=== PATIENT | male | born 1945 | race Caucasian/White ===

== ENCOUNTER 2020-05-05 14:23 | Inpatient (IN) ==
--- NOTE | 2020-05-05 14:55 | Emergency Department Note ---
Impression & Plan Weakness, Fall, Acute urinary retention ED Provider Note NAME: Jean Marie CHENG AGE: 74 SEX: M : 1945 ARRIVES VIA: Walk-In INFORMANT: [Patient][daughter] ED PROVIDER(S): [Augustin Lee MD] CHIEF COMPLAINT: Fall HISTORY OF PRESENT ILLNESS: The patient is a 74-year-old male with dementia. He also has some PTSD. The patient is cared for by his daughter who is at the bedside. The patient has fallen 3 times in the last 24 hours, this is unusual. She took him to the [facility] yesterday, a brain CT scan, urine sample and blood work was done, nothing was found to explain the falls. X-rays of the patient's pelvis were performed and negative. The patient has fallen again since being seen at the urgent care. The daughter brings the patient here for a work-up. The patient has no complaints at the present. As per the daughter, he is eating and drinking well. There have been no recent medication changes. No fever, cough, congestion. There has been no one-sided weakness. He is urinating without difficulty. She states that he is always shaky and always drags his feet when he walks, this is his norm though. What is abnormal is the fact that he is falling. REVIEW OF SYSTEMS: See HPI for pertinent positives and negatives. A total of ten systems were reviewed and were otherwise negative. PMHx/PSHx: See Below SOCIAL HISTORY: See Below. PHYSICAL EXAM: GENERAL: Patient is in no acute distress. HEENT: No acute trauma, normocephalic atraumatic, mucous membranes moist, no nasal congestion, no scleral icterus. NECK: No stridor, no adenopathy, no meningismus, trachea is midline. LUNGS: Clear to auscultation bilaterally, no wheeze, no rhonchi, breath sounds equal. HEART: Without murmurs gallops or rubs, regular rate and rhythm. ABDOMEN: Soft, nontender, bowel sounds positive, no hernias, no peritonitis. EXTREMITIES: No cyanosis or edema, full range of motion of all the joints without pain or difficulty, no signs for acute trauma. NEUROLOGIC: Awake and alert, no acute motor or sensory deficits, no focal weakness. No extremity drift, no cerebellar dysfunction, no facial droop. Some extremity tremor is noted. SKIN: No rash, no jaundice, no diaphoresis. Buttock: There is no skin breakdown, no contusion from his falls. DIFFERENTIAL DIAGNOSIS: Infection, dehydration, metabolic abnormality, hypo/hyperglycemia, medication reaction, electrolyte disturbance, anemia, hypoxia, cardiac sources, intracere bral event, toxicologic, neurologic, as well as other pathologies. EMERGENCY DEPARTMENT COURSE/PROCEDURES: ECG: Indication was weakness. The ECG shows a poor baseline however, the rhythm appears to be sinus with a shorter PA and a PAC. The rate is 77. There is no ST elevation, no PVCs. The QTc is 454. Continuous Cardiac Monitoring: An order was placed for continuous cardiac monitoring. The monitor shows a rate of 107 with sinus tachycardia. Bladder scan showed over 700 cc of urine, significant retention. MEDICAL DECISION MAKING: There is no leukocytosis or concerning anemia. There is a normal platelet co unt. No significant electrolyte abnormality or kidney failure. Lactic acid level is not elevated making sepsis less likely. There is no liver enzyme elevation. Patient appears to be in a euthyroid state. ECG shows a sinus rhythm, no acute ischemia. Cardiac enzyme testing x1 is not consistent with acute cardiac injury. Urinalysis does not show evidence for infection. Chest film does not show pneumonia or CHF. I was able to [facility] of the head did not show anyt [place] acute, laboratory testing was unremarkable. Urinalysis at their facility did not show infection. Patient does not have any focal neurologic findings. He has some tremor but this is his baseline. He is not toxic, he is not febrile. I talked to the daughter at length. The patient is falling to the point where she is no longer comfortable caring for him. She feels he is at risk for injury at home. She thinks he may require placement at a long-term care facility. The patient is being hospitalized for his weakness and falls, the cause is unclear but I suspect multifactorial. With regard to the urinary retention, the patient refused a Perez catheter. His daughter believes that he will not tolerate the Perez. Past Med/Surg History Medical History COPD (chronic obstructive pulmonary disease) PTSD (post-traumatic stress disorder) Social History Smoking Status: Current every day smoker Cigarettes Per Day: 10; Second Hand Exposure: No; Do You Dip or Chew Tobacco: No; Tobacco Cessation Education Requested by Patient: No Hx Alcohol Use: Yes Alcohol type: beer Hx Substance Use: No Preferred Language: Maltese Communication Ability: Effective Setter Off Required: No Current Living Situation: Family Current Living Situation Comment: lives with daughter and son in law Other Information That Helps Us Care for You: No Feels Safe at Home: Yes Safety Concerns: Feels Safe At This Time Assistive Devices: Hearing Aid - Bilateral Assistive Devices Comment: not with patient Allergies Allergies Allergy/AdvReac Type Severity Reaction Status Date / Time No Known Allergies Allergy Verified 05/05/20 18:32 Home Meds Home Medications Medication Instructions Recorded Confirmed acetaminophen 650 mg PO QID PRN 05/05/20 05/05/20 benztropine 2 mg PO BID 05/05/20 05/05/20 cholecalciferol (vitamin D3) 2,000 unit PO QAM 05/05/20 05/05/20 [Vitamin D3] fluphenazine HCl 10 mg PO BID 05/05/20 05/05/20 multivitamin 1 tab PO QAM 05/05/20 05/05/20 trazodone 200 mg PO HS PRN 05/05/20 05/05/20 venlafaxine 225 mg PO QAM 05/05/20 05/05/20 Results & Data (ED) Vital Signs Vital Signs - 24 hr 05/05/20 14:26 05/05/20 14:52 05/05/20 15:53 Temperature 36.6 C Temperature Source Oral Pulse Rate 76 69 Pulse Rate from SpO2 Sensor 68 Respiratory Rate 18 24 Respiratory Effort / Characteristics Non-Labored Spontaneous Respiratory Depth Normal Respiratory Pattern Regular Blood Pressure 109/62 119/78 Blood Pressure Mean 77 87 Blood Pressure Position Sitting Pulse Oximetry 100 100 100 Oxygen Delivery Method Room Air Room Air Room Air Sepsis Recent Fever Within 48 Hours No Sepsis New/Unexplained Change in Mental Status N/A Sepsis Action Taken by Nursing No Action Required 05/05/20 15:56 05/05/20 16:00 05/05/20 16:30 Temperature Temperature Source Pulse Rate 74 73 68 Pulse Rate from SpO2 Sensor 66 67 64 Respiratory Rate 16 19 19 Respiratory Effort / Characteristics Respiratory Depth Respiratory Pattern Blood Pressure 130/68 131/76 Blood Pressure Mean 96 103 Blood Pressure Position Pulse Oximetry 99 99 93 Oxygen Delivery Method Room Air Room Air Room Air Sepsis Recent Fever Within 48 Hours Sepsis New/Unexplained Change in Mental Status Sepsis Action Taken by Nursing 05/05/20 17:00 05/05/20 17:01 05/05/20 17:30 Temperature Temperature Source Pulse Rate 82 85 72 Pulse Rate from SpO2 Sensor 73 80 73 Respiratory Rate 24 23 17 Respiratory Effort / Characteristics Respiratory Depth Respiratory Pattern Blood Pressure 183/87 H Blood Pressure Mean 116 Blood Pressure Position Pulse Oximetry 94 100 99 Oxygen Delivery Method Room Air Room Air Room Air Sepsis Recent Fever Within 48 Hours Sepsis New/Unexplained Change in Mental Status Sepsis Action Taken by Nursing 05/05/20 17:31 05/05/20 18:00 05/05/20 18:31 Temperature Temperature Source Pulse Rate 76 78 87 Pulse Rate from SpO2 Sensor 74 77 Respiratory Rate 25 H 13 22 Respiratory Effort / Characteristics Respiratory Depth Respiratory Pattern Blood Pressure 124/68 139/77 135/73 Blood Pressure Mean 86 111 109 Blood Pressure Position Pulse Oximetry 98 99 Oxygen Delivery Method Room Air Room Air Sepsis Recent Fever Within 48 Hours Sepsis New/Unexplained Change in Mental Status Sepsis Action Taken by Nursing 05/05/20 19:00 05/05/20 19:30 05/05/20 20:00 Temperature Temperature Source Pulse Rate 70 73 88 Pulse Rate from SpO2 Sensor Respiratory Rate 23 16 13 Respiratory Effort / Characteristics Respiratory Depth Respiratory Pattern Blood Pressure 142/71 H 138/67 138/76 Blood Pressure Mean 94 83 102 Blood Pressure Position Pulse Oximetry Oxygen Delivery Method Room Air Sepsis Recent Fever Within 48 Hours Sepsis New/Unexplained Change in Mental Status Sepsis Action Taken by Retirement Medications Current Medication List: was personally reviewed by me Laboratory Data Attestation: I reviewed the patient's lab results. Result diagrams: 05/05/20 15:15 05/05/20 15:15 Lab Results 05/05/20 05/05/20 05/05/20 Range/Units 15:15 15:15 15:15 WBC (4.8-10.8) K/uL RBC (4.7-6.1) M/uL Hgb (14.0-18.0) g/dL Hct (42-52) % MCV (80-100) fL MCH (25-34) pg MCHC (32-36) g/dL RDW Std Deviation (36.4-46.3) fL RDW Coeff of Yvette (11.5-14.5) % Plt Count (130-400) K/uL MPV (7.4-10.4) fL Immature Gran % (Auto) % Neut % (Auto) % Lymph % (Auto) % [place] % (Auto) % Eos % (Auto) % Baso % (Auto) % Neut # (Auto) (1.4-6.5) K/uL Lymph # (Auto) (1.2-3.4) K/uL [place] # (Auto) (0.11-0.59) K/uL Eos # (Auto) (0-0.5) K/uL Baso # (Auto) (0-0.2) K/uL Immature Gran # (Auto) (0.00-0.02) K/uL Sodium 140 (136-145) mmol/L Potassium 4.3 (3.5-5.1) mmol/L Chloride 107 (98-107) mmol/L Carbon Dioxide 30 (21-32) mmol/L Anion Gap 3.0 (3-11) BUN 16 (7-18) mg/dl Creatinine 1.06 (0.6-1.4) mg/dl Est Cr Clr Drug Dosing Not Reportable Est GFR ( Amer) 79.2 Est GFR (Non-Af Amer) 68.3 BUN/Creatinine Ratio 15.1 (10-20) Glucose 100 H (70-99) mg/dl Lactate 1.0 (0.4-2.0) mmol/L Calcium 8.9 (8.5-10.1) mg/dl Magnesium 2.1 (1.8-2.4) mg/dl Total Bilirubin 0.3 (0.2-1) mg/dl AST 18 (15-37) U/L ALT 25 (12-78) U/L Alkaline Phosphatase 83 (45-117) U/L Ammonia 11.9 (11-32) umol/L Total Creatine Kinase 125 (39-308) U/L Troponin I < 0.015 (0-0.045) ng/ml Total Protein 6.9 (6.4-8.2) gm/dl Albumin 3.5 (3.4-5.0) gm/dl Globulin 3.4 (2.5-4.0) gm/dl Albumin/Globulin Ratio 1.0 (0.9-2) TSH 2.610 (0.300-4.500) uIu/ml Urine Color Urine Appearance (Clear) Urine pH (4.5-7.5) Ur Specific [place] (1.000-1.030) Urine Protein (Negative) Urine Glucose (UA) (Negative) Urine Ketones (Negative) Urine Blood (Negative) Urine Nitrite (Negative) Urine Bilirubin (Negative) Urine Urobilinogen (Negative) Ur Leukocyte Esterase (Negative) 05/05/20 05/05/20 Range/Units 15:15 16:59 WBC 6.53 (4.8-10.8) K/uL RBC 4.37 L (4.7-6.1) M/uL Hgb 14.1 (14.0-18.0) g/dL Hct 41.7 L (42-52) % MCV 95.4 (80-100) fL MCH 32.3 (25-34) pg MCHC 33.8 (32-36) g/dL RDW Std Deviation 44.4 (36.4-46.3) fL RDW Coeff of Yvette 12.8 (11.5-14.5) % Plt Count 148 (130-400) K/uL MPV 11.7 H (7.4-10.4) fL Immature Gran % (Auto) 0.2 % Neut % (Auto) 55.3 % Lymph % (Auto) 28.6 % [place] % (Auto) 11.3 % Eos % (Auto) 4.4 % Baso % (Auto) 0.2 % Neut # (Auto) 3.61 (1.4-6.5) K/uL Lymph # (Auto) 1.87 (1.2-3.4) K/uL [place] # (Auto) 0.74 H (0.11-0.59) K/uL Eos # (Auto) 0.29 (0-0.5) K/uL Baso # (Auto) 0.01 (0-0.2) K/uL Immature Gran # (Auto) 0.01 (0.00-0.02) K/uL Sodium (136-145) mmol/L Potassium (3.5-5.1) mmol/L Chloride (98-107) mmol/L Carbon Dioxide (21-32) mmol/L Anion Gap (3-11) BUN (7-18) mg/dl Creatinine (0.6-1.4) mg/dl Est Cr Clr Drug Dosing Est GFR ( Amer) Est GFR (Non-Af Amer) BUN/Creatinine Ratio (10-20) Glucose (70-99) mg/dl Lactate (0.4-2.0) mmol/L Calcium (8.5-10.1) mg/dl Magnesium (1.8-2.4) mg/dl Total Bilirubin (0.2-1) mg/dl AST (15-37) U/L ALT (12-78) U/L Alkaline Phosphatase (45-117) U/L Ammonia (11-32) umol/L Total Creatine Kinase (39-308) U/L Troponin I (0-0.045) ng/ml Total Protein (6.4-8.2) gm/dl Albumin (3.4-5.0) gm/dl Globulin (2.5-4.0) gm/dl Albumin/Globulin Ratio (0.9-2) TSH (0.300-4.500) uIu/ml Urine Color Yellow Urine Appearance Clear (Clear) Urine pH 6.0 (4.5-7.5) Ur Specific [place] 1.013 (1.000-1.030) Urine Protein Negative (Negative) Urine Glucose (UA) Negative (Negative) Urine Ketones Negative (Negative) Urine Blood Negative (Negative) Urine Nitrite Negative (Negative) Urine Bilirubin Negative (Negative) Urine Urobilinogen Negative (Negative) Ur Leukocyte Esterase Negative (Negative) Administered Medications Benztropine Mesylate (Benztropine Mesylate 1 Mg Tab) 2 mg PO BID [facility] Stop: 06/04/20 21:16 Last Admin: 05/05/20 22:03 Dose: 2 mg Documented by: [id number] Fluphenazine HCl (Fluphenazine Hcl 2.5 Mg Tab) 10 mg PO BID [facility] Stop: 06/04/20 21:16 Last Admin: 05/05/20 22:07 Dose: 10 mg Documented by: [id number] Heparin Sodium (Porcine) (Heparin Sod 5,000 Unit/0.5 Ml Vial) 5,000 units SQ Q12 KASANDRA Stop: 06/04/20 21:16 Last Admin: 05/05/20 22:05 Dose: 5,000 units Documented by: [id number] Trazodone HCl (Trazodone Hcl 100 Mg Tab) 200 mg PO HS PRN PRN Reason: Sleep Stop: 06/04/20 21:16 Last Admin: 05/05/20 22:05 Dose: 200 mg Documented by: [id number] Discontinued Medications Sodium Chloride (Nss) 500 mls @ 999 mls/hr IV .Q31M KASANDRA Stop: 05/05/20 15:30 Last Infusion: 05/05/20 15:55 Dose: 0 mls/hr Documented by: [id number] Admin: 05/05/20 15:24 Dose: 999 mls/hr Documented by: [id number] Imaging Data Radiologist's Impression: XR chest 1V portable CLINICAL HISTORY: weakness COMPARISON STUDY: 02/27/2016 FINDINGS: The cardiac and mediastinal contours are normal. There is no evidence of focal pulmonary consolidation. There is no evidence of failure. No pleural effusions are visualized.[ IMPRESSION: No active disease in the chest. Discharge Plan Visit Data Chief Complaint: Fall Stated Complaint: FALLING,BLACKOUTS,TREMORS RIGHT SIDE ED Provider: Augustin Lee Discharge Problem: Weakness, Fall, Acute urinary retention Patient Disposition: Admitted As Inpatient Condition: Good Discharge Instructions Interventions: ED Discharge Assessment Last Done: 05/05/20 21:03 Discharge Problem: Fall Qualifiers: Encounter type: initial encounter Qualified Code(s): W19.XXXA - Unspecified fall, initial encounter
[2020-05-05] MEDS ORDERED: SODIUM CHLORIDE 0.9% 500 ML IV SCH (15:00)
--- NOTE | 2020-05-05 15:03 | XRay Report ---
XR chest 1V portable CLINICAL HISTORY: weakness COMPARISON STUDY: 02/27/2016 FINDINGS: The cardiac and mediastinal contours are normal. There is no evidence of focal pulmonary co nsolidation. There is no evidence of failure. No pleural effusions are visualized.[ IMPRESSION: No active disease in the chest. ACT 112: Negative or not required by law. Electronically signed by: Michael Esposito M.D. 05/05/2020 3:02 PM
[2020-05-05 15:31] LABS: Basophils # (auto) 0.01 K/uL (0-0.2); Basophils % (auto) 0.2 %; Eosinophils # (auto) 0.29 K/uL (0-0.5); Eosinophils % (auto) 4.4 %; Hematocrit (blood only) 41.7 % (42-52); Hemoglobin 14.1 g/dL (14.0-18.0); Immature Granulocytes # (auto) 0.01 K/uL (0.00-0.02); Immature Granulocytes % (auto) 0.2 %; Lymphocytes # (auto) 1.87 K/uL (1.2-3.4); Lymphocytes % (auto) 28.6 %; Mean Corpuscular Hemoglobin 32.3 pg (25-34); Mean Corpuscular Hgb Conc 33.8 g/dL (32-36); Mean Corpuscular Volume 95.4 fL (80-100); Mean Platelet Volume 11.7 fL (7.4-10.4); Monocytes # (auto) 0.74 K/uL (0.11-0.59); Monocytes % (auto) 11.3 %; Neutrophils # (auto) 3.61 K/uL (1.4-6.5); Neutrophils % (auto) 55.3 %; Platelet Count 148 K/uL (130-400); RDW Coefficient of Variation 12.8 % (11.5-14.5); RDW Standard Deviation 44.4 fL (36.4-46.3); Red Blood Count 4.37 M/uL (4.7-6.1); White Blood Count 6.53 K/uL (4.8-10.8)
[2020-05-05 15:51] LABS: Alanine Aminotransferase 25 U/L (12-78); Albumin Level 3.5 gm/dl (3.4-5.0); Aspartate Aminotransferase 18 U/L (15-37); BUN Creatinine Ratio 15.1 (10-20); Blood Urea Nitrogen 16 mg/dl (7-18); Calcium 8.9 mg/dl (8.5-10.1); Carbon Dioxide 30 mmol/L (21-32); Chloride 107 mmol/L (98-107); Est GFR (African American) 79.2; Est GFR (Non-African American) 68.3; Glucose 100 mg/dl (70-99); Magnesium 2.1 mg/dl (1.8-2.4); Potassium 4.3 mmol/L (3.5-5.1); Sodium 140 mmol/L (136-145)
[2020-05-05 16:02] LABS: Alkaline Phosphatase 83 U/L (45-117); Bilirubin,Total 0.3 mg/dl (0.2-1); Creatine Kinase 125 U/L (39-308); Globulin 3.4 gm/dl (2.5-4.0); Total Protein 6.9 gm/dl (6.4-8.2); Troponin I < 0.015 ng/ml (0-0.045)
[2020-05-05 17:26] LABS: Appearance Urine Clear (Clear); Bilirubin Urine Negative (Negative); Blood Urine Negative (Negative); Color Urine Yellow; Glucose Urine UA Negative (Negative); Ketones Urine Negative (Negative); Leukocyte Esterase Urine Negative (Negative); Nitrite Urine Negative (Negative); Protein Urine Negative (Negative); Specific Gravity Urine 1.013 (1.000-1.030); Urobilinogen Urine Negative (Negative)
--- NOTE | 2020-05-05 19:47 | History & Physical Report ---
Date of Service May 05, 2020 Assessment & Plan (1) Falls: Richy Is a 74-year-old male with a past medical history of COPD, tobacco abuse, PTSD, asthma/bronchitis, COPD, duodenal ulcer, and esophagitis with GERD who presents for weakness and falls. Falls, 2/2 progressively worsening cognitive status versus LUTS Patient with good strength, independently ambulatory without cane or walker at baseline. 3 falls in 24 hours Patient with known BPH and elevated PSA, no further work-up [facility] by [facility] due to age Patient was not known to have been retaining previously, was straight cathed for 708 100 cc at [place] in [facility] respectively Be contributing to urinary urgency, straight cath for residual greater than 250 cc Patient with extremely high fluid intake, drink 6020 ounce glasses a day. No electrolyte derangement, this is likely to be increasing his risk of falls Orthostatic vitals pending, 3 falls were following standing No signs of severe deconditioning on admitting exam Defer Flomax at this time due to beers list and risk of sedation/dizziness CT head with no acute findings - Tamsulosin .4mg. Beers list med, but benefits of improved rentention likely out weight risk of falls due to persistent vagal stimulation from urinary retention Dementia Progressively worsening dementia over many years, notably worse in the last month. Has had outpatient cognitive testing which shows decline, chronic CT head shows chronic vascular changes and white matter changes consistent with age and dementia. 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 twice daily Continue benztropine 2 mg p.o. twice daily Patient followed by psychiatry in [place]. Reports of had many medication changes to control schizophrenic symptoms and nighttime agitation, above balance has been working well for several weeks Patient continues to have PTSD and nightmares at night, does better with light in the room near an open door Anxiety/insomnia Continue venlafaxine to 25 mg p.o. every morning Continue trazodone 200 mg p.o. nightly as needed Pain No pain on manual exam. Tylenol 60 mg p.o. 4 times daily as needed DVT prophylaxis: Subcu heparin Diet: Regular CODE STATUS: DNR/DNI. Daughter would want to be contacted to determine whether a trial of intubation would be wanted for declining respiratory status Disposition: Medical/surgical (2) COPD (chronic obstructive pulmonary disease): (3) Tobacco abuse: (4) PTSD (post-traumatic stress disorder): (5) Acute bronchitis: (6) Asthma: (7) Duodenal ulcer: (8) Esophagitis: History of Present Illness Chief Complaint: Falls, weakness Primary Care Provider: NO PCP Richy Is a 74-year-old male with a past medical history of COPD, tobacco abuse, PTSD, asthma/bronchitis, COPD, duodenal ulcer, and esophagitis with GERD who presents for weakness and falls. Per report patient is cared for by his daughter and normally has a slow, shaky gait with dragging feet but does not usually fall. In the last 24 hours he has fallen 3 times. He was seen at [facility] 1 day ago and had a CThead, UA, CBC, BMP which were unremarkable. X-rays of the pelvis did not show any signs of fracture. He was discharged home, but has had an additional fall in the last day and after being seen by urgent care was referred to the emergency department. [place] records review results noted as below. Evaluation about any showed blood pressure of 142/71 with otherwise normal vitals, no leukocytosis, hemoglobin 14.1, no gross electrolyte derangements, glucose of 100, troponin negative, TSH normal, CK normal, ammonia normal, no transaminitis, magnesium normal, and negative urine.Urine retention noted by ED provider with bladder sc an Patient's history is limited by dementia. He is oriented to first name, only. Does not recognize his daughter in the room, is pleasant but unaware of place and date. History is collected mostly from his daughter. She reports that he is normally very energetic, with good strength and walks around frequently. He has had 3 falls in the last 24 hours. He was seen by [facility] as above. She has noticed an associated increase in right-sided shaking/tremors of the arm and slightly in the leg. She also notes he has had chronically worsening dementia over the last month. She has not noticed any fevers, chills, sweats, cough, shortness of breath, difficulty breathing, indication of chest pain, diarrhea, constipation, abdominal pain, or loss of consciousness. He has not had any skin changes or rash. No change in vision or hearing. She reports he will sometimes "blackout ", which she means by this is that he has episodes where he will stare and appeared confused, but does not lose consciousness. These tend to happen when he stands and are associated with loss of balance. He has not had blood pressure problems previously. After being evaluated in [place] and having an additional fall they were seen in the urgent care before being referred to the emergency department. His daughter is a nurse and reports that she understands that this may be a chronic process related to his dementia, and they are working on getting him into a total care facility with a dementia r[place]ussen and [place]. He has had several CTs, including one at the [place] as noted above. He is not able to get MRIs due to a non-MRI compatible artificial eardrum. Reports she has not noticed a change in urinary symptoms, but notes that her father drinks 6 to 820 ounce glasses of water a day. She has not noticed a problem with urinary retention, but he has been straight cathed both at [place] and here for 700 & 800 cc respectively. He was noted to have some BPH in the past with an elevated PSA but due to his age and [facility] status they do not pursue further work-up, and have been monitoring. Not had any painful urination or blood in the urine. Medical history: Reviewed. Of note has a history of schizophrenia for many years, has had medications adjusted by outpatient [place] psychiatrist and have worked to find a balance of fluphenazine and benztropine that control his sympt oms while also minimizing EPS side effects. Therefore he has done very well on his current balance. Medications: Reviewed Allergies: No known drug or food allergies Social history: Living situation with daughter and son-in-law, home has door alarms in a locked acute events. Smokes 10 to 12 cigarettes/day, down from 2 packs/day for "ever ". No alcohol use, no recreational drug use. CODE STATUS: DNR/DNI, daughter would want to be contacted and may be open to trial of intubation for declining respiratory status family history: Patient is adopted, does not know his family history Family history: Patient is adopted, unknown family history ____ [facility] records review Right hip 07/29 view: Mild right hip osteoarthritis no acute findings. 05/04/2020 CThead: Cerebral and cerebellar atrophy. No evidence of bony injury, stroke, or intracranial bleed. Diffuse bilateral white matter changes appreciated. 05/04/2020 CBC: No leukocytosis, hemoglobin 14, platelet 153 UA: [place], no leukocyte esterase or bacteria Troponin negative, lipase negative, ammonia normal Allergies Allergy/AdvReac Type Severity Reaction Status Date / Time No Known Allergies Allergy Verified 05/05/20 18:32 Home Medications Home Medications Medication Instructions Recorded Confirmed Type acetaminophen 650 mg PO QID PRN 05/05/20 05/05/20 History benztropine 2 mg PO BID 05/05/20 05/05/20 History cholecalciferol (vitamin D3) 2,000 unit PO QAM 05/05/20 05/05/20 History [Vitamin D3] fluphenazine HCl 10 mg PO BID 05/05/20 05/05/20 History multivitamin 1 tab PO QAM 05/05/20 05/05/20 History trazodone 200 mg PO HS PRN 05/05/20 05/05/20 History venlafaxine 225 mg PO QAM 05/05/20 05/05/20 History Past Med/Surg History Medical History COPD (chronic obstructive pulmonary disease) PTSD (post-traumatic stress disorder) Social History Smoking Status: Current every day smoker Cigarettes Per Day: 10; Second Hand Exposure: No; Do You Dip or Chew Tobacco: No; Tobacco Cessation Education Requested by Patient: No Hx Alcohol Use: Yes Alcohol type: beer Hx Substance Use: No Preferred Language: Nigerian Communication Ability: Impaired Body Joiner Required: No marital status: / Current Living Situation: Family Current Living Situation Comment: lives with daughter and son in law Other Information That Helps Us Care for You: No Feels Safe at Home: Yes Safety Concerns: Feels Safe At This Time Assistive Devices: None Assistive Devices Comment: not with patient Review of Systems Review of Systems: See HPI. Physical Exam Physical Exam: General: Alert. Oriented to firs tname. Not oriented to place or year. NAD. Cooperative. HEENT: Atraumatic, normocephalic. PERLAA. Visual acuity and hearing grossly intact. No nystagmus. Pulm: CTAB A&P. -wheezes, -rales, -rhonchi. Symmetrical chest rise. No increase work of breathing. No respiratory distress. Cardiac: RRR, -mrg. Radial pulses intact and symmetrical. Abdominal: Nontender, nondistended, soft. BS present. Exremities: 5/5 banking consultant strength, plantarflexion/dorsiflexion, hip flexion bilaterally. Mild R sided tremor in arms. Sensation to soft touch intact in hands and feet. Exam somewhat limited by cognitive status. Results & Data Results & Data ([facility]) Vital Signs (Past 12 Hours) Vital Signs Temp Pulse Resp BP Pulse Ox 05/05/20 19:00 70 23 142/71 H 05/05/20 18:31 87 22 135/73 05/05/20 18:00 78 13 139/77 99 05/05/20 17:31 76 25 H 124/68 98 05/05/20 17:30 72 17 99 05/05/20 17:01 85 23 183/87 H 100 05/05/20 17:00 82 24 94 05/05/20 16:30 68 19 131/76 93 05/05/20 16:00 73 19 130/68 99 05/05/20 15:56 74 16 99 05/05/20 15:53 69 24 119/78 100 05/05/20 14:52 100 05/05/20 14:26 36.6 C 76 18 109/62 100 Supervising Physician Co-Signing Physician Notes Attending addendum: I have physically seen this patient, have supervised the medical residents activities, and agree with the H&P unless as otherwise noted. Assessment and Plan: Dementia/schizophrenia/anxiety/insomnia/increasing falls- Continue usual medications of fluphenazine, benztropine and venlafaxine. Symptoms may be aggravated by issues with BPH with LUTS. Consult PT/OT Consider side effect of medications as a potential contributing cause, in particular trazodone, which for now would hold BPH with LUTS- Follow urine culture sensitivity Tamsulosin 0.4 mg at bedtime. Make sure to take at bedtime to minimize potential contribution to orthostasis Monitor fluid intake. Reportedly is drinking 6 20 ounce glasses of water daily, with normal-appearing electrolytes in ED today Remaining orders and notations as noted Resident Activity Tracking Resident Involvement: Resident Care Provided Care Provided: Adult Hospital Medicine
[2020-05-05] MEDS: BENZTROPINE MESYLATE 1 MG TAB PO SCH (22:03)
[2020-05-05] MEDS: HEPARIN SOD 5,000 UNIT/0.5 ML VIAL SQ SCH (22:05)
[2020-05-05] MEDS: traZODone HCL 100 MG TAB PO PRN (22:05)
[2020-05-06 08:07] LABS: Basophils # (auto) 0.02 K/uL (0-0.2); Basophils % (auto) 0.3 %; Eosinophils # (auto) 0.25 K/uL (0-0.5); Eosinophils % (auto) 4.4 %; Hematocrit (blood only) 38.8 % (42-52); Immature Granulocytes # (auto) 0.01 K/uL (0.00-0.02); Immature Granulocytes % (auto) 0.2 %; Lymphocytes # (auto) 2.15 K/uL (1.2-3.4); Lymphocytes % (auto) 37.5 %; Mean Corpuscular Hemoglobin 32.1 pg (25-34); Mean Corpuscular Hgb Conc 33.5 g/dL (32-36); Mean Corpuscular Volume 95.8 fL (80-100); Mean Platelet Volume 12.1 fL (7.4-10.4); Monocytes # (auto) 0.74 K/uL (0.11-0.59); Monocytes % (auto) 12.9 %; Neutrophils # (auto) 2.56 K/uL (1.4-6.5); Neutrophils % (auto) 44.7 %; Platelet Count 132 K/uL (130-400); RDW Coefficient of Variation 12.9 % (11.5-14.5); RDW Standard Deviation 44.8 fL (36.4-46.3); Red Blood Count 4.05 M/uL (4.7-6.1); White Blood Count 5.73 K/uL (4.8-10.8)
[2020-05-06 08:37] LABS: Calcium 8.9 mg/dl (8.5-10.1); Creatinine Clr Calc Pharmacy 66.8 ml/min; Est GFR (African American) 101.3; Est GFR (Non-African American) 87.4; Potassium 3.6 mmol/L (3.5-5.1)
[2020-05-06] MEDS: BENZTROPINE MESYLATE 1 MG TAB PO SCH ×2 (09:09→20:12)
[2020-05-06] MEDS: CHOLECALCIFEROL 1,000 UNITS 25 MCG TAB PO SCH (09:10)
[2020-05-06] MEDS: VENLAFAXINE HCL XR 75 MG CAPXR PO SCH (09:10)
[2020-05-06] MEDS: TAMSULOSIN HCL 0.4 MG CAP PO SCH (09:10)
[2020-05-06] MEDS: MULTIVITAMIN TAB PO SCH (09:10)
[2020-05-06] MEDS: HEPARIN SOD 5,000 UNIT/0.5 ML VIAL SQ SCH ×2 (09:10→20:11)
--- NOTE | 2020-05-06 15:50 | Electrocardiogram Report ---
Test Reason : Blood Pressure : / mmHG Vent. Rate : 077 BPM Atrial Rate : 077 BPM P-R Int : 104 ms QRS Dur : 070 ms QT Int : 402 ms P-R-T Axes : 069 059 070 degrees QTc Int : 454 ms Poor data quality, interpretation may be adversely affected Sinus rhythm with short NJ with Premature atrial complexes Otherwise normal ECG When compared with ECG of 27-AUG-2015 20:06, Premature atrial complexes are now Present Confirmed by Ari Dave ([id number]) on 05/06/2020 3:50:16 PM Referred By: REFERRED SELF Confirmed By:Ari Dave
--- NOTE | 2020-05-06 19:52 | Hospitalist Progress Note ---
Date of Service May 06, 2020 Assessment & Plan (1) Weakness: (2) Fall: appears to be due to just general weakness/progression of dementia (3) Dementia: progressive. unfortunately despite significant considerations, i don't see metabolic, infec tious, polypharmacy, etc type causes for worsening - overall situation appears to be that of progressive dementia (4) DVT prophylaxis: heparin SQ (5) Discharge planning issues: SNF Admission and Anticipated Discharge Date Admission Date: May 05, 2020 Subjective no HPI or ROS obtainable from pt family present and reiterates HPI/ROS as noted in H&P. she notes they've cared for him for 5yrs and he's just been getting worse - now have alarms on doors fence around backyard etc but still large risk to wander. falls new - but she sees no reason why outside of progression of dementia. Review of Systems Review of Systems: Unobtainable due to cognitive status Physical Exam Physical Exam: gen laying in bed, eyes open nonverbal to me nad heent nc at mmm breathing unlabored no accessory muscles good effort skin no rashes no pallor or icterus neuro no focal deficits Results & Data Results & Data ([facility]) Vital Signs (Past 12 Hours) Vital Signs Temp Pulse Resp BP Pulse Ox 05/06/20 15:46 98.2 F 78 18 105/63 95 PG Care Time/CCT Total # of Minutes Spent Total Time Spent with Patient: Total time spent is greater than 50% in coordination of care (as documented) at patient's floor/unit and/or counseling patient: Coding Level of Care Code 86379 Subseq Hosp Care Lvl 3 Diagnoses Weakness R53.1 Fall W19.XXXA Encounter type: initial encounter Dementia F03.90 DVT prophylaxis Z29.9 Discharge planning issues Z02.9 (1) Fall Encounter type: initial encounter Qualified Code(s): W19.XXXA - Unspecified fall, initial encounter
[2020-05-07] MEDS: VENLAFAXINE HCL XR 75 MG CAPXR PO SCH (08:23)
[2020-05-07] MEDS: TAMSULOSIN HCL 0.4 MG CAP PO SCH (08:24)
[2020-05-07] MEDS: BENZTROPINE MESYLATE 1 MG TAB PO SCH ×2 (08:24→20:33)
[2020-05-07] MEDS: MULTIVITAMIN TAB PO SCH (08:24)
[2020-05-07] MEDS: CHOLECALCIFEROL 1,000 UNITS 25 MCG TAB PO SCH (08:25)
[2020-05-07] MEDS: HEPARIN SOD 5,000 UNIT/0.5 ML VIAL SQ SCH ×2 (08:25→20:33)
[2020-05-07] MEDS: POLYETHYLENE (MIRALAX) 17 GM PACK PO PRN (16:23)
--- NOTE | 2020-05-07 19:41 | Hospitalist Progress Note ---
Date of Service May 07, 2020 Assessment & Plan (1) Weakness: (2) Fall: appears to be due to just general weakness/progression of dementia PT/OT SNF (3) Dementia: progressive. unfortunately despite significant considerations, i don't see metabolic, infectious, polypharmacy, etc type causes for worsening - overall situation appears to be that of progressive dementia (4) DVT prophylaxis: heparin SQ (5) Discharge planning issues: SNF - working on paperwork Admission and Anticipated Discharge Date Admission Date: May 05, 2020 Subjective no HPI or ROS obtaianble dtr needs [id number] completed awaitign placement Review of Systems Review of Systems: Unobtainable due to cognitive status Physical Exam Physical Exam: gen awake but disoriented, nad heent nc at mmm breathing unlabored no focal neuro deficits skin no rashes no pallor or icterus Results & Data Results & Data ([facility]) Vital Signs (Past 12 Hours) Vital Signs Temp Pulse Resp BP Pulse Ox 05/07/20 15:19 98.1 F 72 17 114/63 97 PG Care Time/CCT Total # of Minutes Spent Total Time Spent with Patient: Total time spent is greater than 50% in coordination of care (as documented) at patient's floor/unit and/or counseling patient: Coding Level of Care Code 49142 Subseq Hosp Care Lvl 2 Diagnoses Weakness R53.1 Fall W19.XXXA Encounter type: initial encounter Dementia F03.90 DVT prophylaxis Z29.9 Discharge planning issues Z02.9 (1) Fall Encounter type: initial encounter Qualified Code(s): W19.XXXA - Unspecified fall, initial encounter
[2020-05-07] MEDS: DOCUSATE SODIUM 100 MG CAP PO SCH (20:32)
--- NOTE | 2020-05-07 20:58 | Billing Data ---
Date of Service May 07, 2020 Coding Level of Care Code 51253 OBS Care - Level 3
[2020-05-07] MEDS: traZODone HCL 100 MG TAB PO PRN (23:28)
[2020-05-08] MEDS: VENLAFAXINE HCL XR 75 MG CAPXR PO SCH (09:26)
[2020-05-08] MEDS: MULTIVITAMIN TAB PO SCH (09:28)
[2020-05-08] MEDS: TAMSULOSIN HCL 0.4 MG CAP PO SCH (09:28)
[2020-05-08] MEDS: BENZTROPINE MESYLATE 1 MG TAB PO SCH ×2 (09:29→20:10)
[2020-05-08] MEDS: CHOLECALCIFEROL 1,000 UNITS 25 MCG TAB PO SCH (09:30)
[2020-05-08] MEDS: DOCUSATE SODIUM 100 MG CAP PO SCH ×2 (09:31→20:10)
[2020-05-08] MEDS: HEPARIN SOD 5,000 UNIT/0.5 ML VIAL SQ SCH ×2 (09:33→20:10)
[2020-05-08] MEDS: NICOTINE 14 MG/24 HR PATCH TD SCH (09:38)
--- NOTE | 2020-05-08 18:41 | Hospitalist Progress Note ---
Date of Service May 08, 2020 Assessment & Plan (1) Falls: (1) Weakness: (2) Fall: appears to be due to just general weakness/progression of dementia PT/OT eval and treat SNF placement being sought (3) Dementia: progressive. unfortunately despite significant considerations, i don't see metabolic, infectious, polypharmacy, etc type causes for worsening - overall situation appears to be that of progressive dementia (4) DVT prophylaxis: heparin SQ (5) Discharge planning issues: SNF - case management input appreciated (2) COPD (chronic obstructive pulmonary disease): (3) Tobacco abuse: (4) PTSD (post-traumatic stress disorder): (5) Acute bronchitis: (6) Asthma: (7) Duodenal ulcer: (8) Esophagitis: Admission and Anticipated Discharge Date Admission Date: May 05, 2020 Subjective has been doing well for nursing. no HPI or ROS obtainable from pt. d/w case management. Review of Systems Review of Systems: Unobtainable due to cognitive status Physical Exam Physical Exam: gen awake pleasant nad heent nc at mmm breathing unlabored no accessory muscles good effort skin no rashes no pallor or icterus Results & Data Results & Data ([facility]) Vital Signs (Past 12 Hours) Vital Signs Temp Pulse Resp BP BP Pulse Ox 05/08/20 15:46 98.4 F 67 16 135/67 97 05/08/20 09:24 97.9 F 65 18 121/71 97 PG Care Time/CCT Total # of Minutes Spent Total Time Spent with Patient: Total time spent is greater than 50% in coordination of care (as documented) at patient's floor/unit and/or counseling patient: Coding Level of Care Code 50806 Subseq Hosp Care Lvl 1 Diagnoses Falls W19.XXXA COPD (chronic obstructive pulmonary disease) J44.9 Tobacco abuse Z72.0 PTSD (post-traumatic stress disorder) F43.10 Acute bronchitis J20.9 Asthma J45.909 Duodenal ulcer K26.9 Esophagitis K20.9
[2020-05-09] MEDS: traZODone HCL 100 MG TAB PO PRN ×2 (01:39→20:28)
[2020-05-09] MEDS: VENLAFAXINE HCL XR 75 MG CAPXR PO SCH (09:24)
[2020-05-09] MEDS: CHOLECALCIFEROL 1,000 UNITS 25 MCG TAB PO SCH (09:24)
[2020-05-09] MEDS: DOCUSATE SODIUM 100 MG CAP PO SCH ×2 (09:25→19:20)
[2020-05-09] MEDS: BENZTROPINE MESYLATE 1 MG TAB PO SCH ×2 (09:26→19:20)
[2020-05-09] MEDS: MULTIVITAMIN TAB PO SCH (09:26)
[2020-05-09] MEDS: NICOTINE 14 MG/24 HR PATCH TD SCH (09:26)
[2020-05-09] MEDS: TAMSULOSIN HCL 0.4 MG CAP PO SCH (09:27)
[2020-05-09] MEDS: HEPARIN SOD 5,000 UNIT/0.5 ML VIAL SQ SCH ×2 (09:27→19:20)
--- NOTE | 2020-05-09 19:18 | Hospitalist Progress Note ---
Date of Service May 09, 2020 Assessment & Plan (1) Falls: (1) Weakness: (2) Fall: appears to be due to just general weakness/progression of dementia PT/OT eval and treat SNF placement being sought (3) Dementia: progressive. unfortunately despite significant considerations, i don't see metabolic, infectious, polypharmacy, etc type causes for worsening - overall situation appears to be that of progressive dementia supportive care (4) DVT prophylaxis: heparin SQ (5) Discharge planning issues: SNF - case management input appreciated, stable for placement once available (2) COPD (chronic obstructive pulmonary disease): (3) Tobacco abuse: (4) PTSD (post-traumatic stress disorder): (5) Acute bronchitis: (6) Asthma: (7) Duodenal ulcer: (8) Esophagitis: Admission and Anticipated Discharge Date Admission Date: May 05, 2020 Subjective no complaints. no real HPI or ROS. Review of Systems Review of Systems: Unobtainable due to cognitive status Physical Exam Physical Exam: gen awake pleasant nad confused, breathing unlabored no accessory muscles good effort skin no rashes no pallor or icterus. no focal neuro deficits Results & Data Results & Data ([facility]) Vital Signs (Past 12 Hours) Vital Signs Temp Pulse Resp BP Pulse Ox 05/09/20 15:53 97.5 F L 75 16 116/74 98 05/09/20 09:31 97.7 F 78 18 104/52 L 98 PG Care Time/CCT Total # of Minutes Spent Total Time Spent with Patient: Total time spent is greater than 50% in coordination of care (as documented) at patient's floor/unit and/or counseling patient: Coding Level of Care Code 46352 Subseq Obs Care Lvl 1 Diagnoses Falls W19.XXXA COPD (chronic obstructive pulmonary disease) J44.9 Tobacco abuse Z72.0 PTSD (post-traumatic stress disorder) F43.10 Acute bronchitis J20.9 Asthma J45.909 Duodenal ulcer K26.9 Esophagitis K20.9
[2020-05-10] MEDS: NICOTINE 14 MG/24 HR PATCH TD SCH (07:54)
[2020-05-10] MEDS: MULTIVITAMIN TAB PO SCH (07:55)
[2020-05-10] MEDS: VENLAFAXINE HCL XR 75 MG CAPXR PO SCH (07:55)
[2020-05-10] MEDS: TAMSULOSIN HCL 0.4 MG CAP PO SCH (07:57)
[2020-05-10] MEDS: CHOLECALCIFEROL 1,000 UNITS 25 MCG TAB PO SCH (07:57)
[2020-05-10] MEDS: DOCUSATE SODIUM 100 MG CAP PO SCH ×2 (07:58→20:50)
[2020-05-10] MEDS: BENZTROPINE MESYLATE 1 MG TAB PO SCH ×2 (07:58→20:50)
[2020-05-10] MEDS: HEPARIN SOD 5,000 UNIT/0.5 ML VIAL SQ SCH ×2 (07:59→20:50)
--- NOTE | 2020-05-10 19:48 | Hospitalist Progress Note ---
Date of Service May 10, 2020 Assessment & Plan (1) Falls: (1) Weakness: (2) Fall: all due to just general weakness/progression of dementia PT/OT eval and treat SNF placement being sought (3) Dementia: progressive. unfortunately despite significant considerations, no metabolic, infectious, polypharmacy, etc type causes for worsening - overall situation appears to be that of progressive dementia supportive care (4) DVT prophylaxis: heparin SQ (5) Discharge planning issues: SNF - case management input appreciated, stable for placement once available (2) COPD (chronic obstructive pulmonary disease): (3) Tobacco abuse: (4) PTSD (post-traumatic stress disorder): (5) Acute bronchitis: (6) Asthma: (7) Duodenal ulcer: (8) Esophagitis: Admission and Anticipated Discharge Date Admission Date: May 10, 2020 Subjective no complaints. no meaningful HPI or ROS. Review of Systems Review of Systems: Unobtainable due to cognitive status PG Care Time/CCT Total # of Minutes Spent Total Time Spent with Patient: Total time spent is greater than 50% in coordination of care (as documented) at patient's floor/unit and/or counseling patient: Coding Level of Care Code 20999 Subseq Hosp Care Lvl 1 Diagnoses Falls W19.XXXA COPD (chronic obstructive pulmonary disease) J44.9 Tobacco abuse Z72.0 PTSD (post-traumatic stress disorder) F43.10 Acute bronchitis J20.9 Asthma J45.909 Duodenal ulcer K26.9 Esophagitis K20.9
--- NOTE | 2020-05-11 10:16 | Hospitalist Progress Note ---
Date of Service May 11, 2020 Assessment & Plan (1) Falls: Patient is a 74 year old male with PMHx COPD, PTSD, Asthma, Duodenal Ulcer, GERD, Esophagitis, Schizophrenia, BPH who presented initially secondary to worsening weakness and falls. Fall -Suspect secondary to generalized weakness over all vs worsening dementia -PT/OT ordered -Patient medically stable for discharge, Case Management assisting with searching for SNF placement Dementia -Progressive worsening -No obvious infection or metabolic cause -?Polypharmacy secondary to patients psychiatric medications, though over all suspect just worsening of progressive dementia Schizophrenia -Continue Fluphenazine -Continue Benztropine -Follows with [facility]ry [facility] [place] Anxiety/PTSD/Insomnia -Continue Effexor -Continue Trazodone 200mg qhs PRN BPH -Continue Flomax Dispo: Med/Surg - reaching out to [facility] for SNF placement FEN: HH soft bite sized DVT: Heparin Code: DNR/DNI (2) Dementia: (3) Anxiety disorder: (4) PTSD (post-traumatic stress disorder): Admission and Anticipated Discharge Date Admission Date: May 10, 2020 Supervising Physician Co-Signing Physician Notes Resident Physician Supervision Note: I independently interviewed and examined the patient and verified the thompson history and physical, reviewed labs and image studies, discussed the case with the resident Dr. Wilkinson and agree with the findings and care plan. Subjective Patient evaluated at the bedside this AM. Patient extremely sleepy, but arousable. Quickly returned to sleep after answering questions. Noted that he was not in any pain or discomfort. Review of Systems Review of Systems: Unobtainable due to reduced consciousness Patient arousable, but rapidly returns to sleep. -Noted he was not having any chest pain, chest pressure, shortness of breath, fever, chills, abdominal pain. Physical Exam Constitutional: + thin; no acute distress Respiratory: normal respiratory effort, lungs clear to auscultation Cardiovascular: RRR, no murmur, no edema Gastrointestinal (Abdomen): Inspection/Auscultation: abdomen normal to inspection and normal bowel sounds; abdomen not distended Percussion/Palpation: abdomen soft; abdomen nontender Results & Data Results & Data ([facility]) Vital Signs (Past 12 Hours) Vital Signs Pulse Resp BP Pulse Ox 05/10/20 23:46 96 H 20 135/73 93 Resident Activity Tracking Resident Involvement: Resident Care Provided Care Provided: Adult [facility]
[2020-05-11] MEDS: BENZTROPINE MESYLATE 1 MG TAB PO SCH ×2 (12:15→20:22)
[2020-05-11] MEDS: MULTIVITAMIN TAB PO SCH (12:16)
[2020-05-11] MEDS: TAMSULOSIN HCL 0.4 MG CAP PO SCH (12:16)
[2020-05-11] MEDS: VENLAFAXINE HCL XR 75 MG CAPXR PO SCH (12:17)
[2020-05-11] MEDS: NICOTINE 14 MG/24 HR PATCH TD SCH (12:18)
[2020-05-11] MEDS: CHOLECALCIFEROL 1,000 UNITS 25 MCG TAB PO SCH (12:18)
[2020-05-11] MEDS: HEPARIN SOD 5,000 UNIT/0.5 ML VIAL SQ SCH ×3 (12:19→20:23)
[2020-05-11] MEDS: DOCUSATE SODIUM 100 MG CAP PO SCH ×2 (12:21→20:23)
--- NOTE | 2020-05-12 07:04 | Hospitalist Progress Note ---
Date of Service May 12, 2020 Assessment & Plan (1) Falls: Patient is a 74 year old male with PMHx COPD, PTSD, Asthma, Duodenal Ulcer, GERD, Esophagitis, Schizophrenia, BPH who presented initially secondary to worsening weakness and falls. Fall -Suspect secondary to generalized weakness over all/med side effect/ worsening dementia -PT/OT ordered -Patient medically stable for discharge, Case Management assisting with searching for SNF placement Dementia -Progressive worsening -No obvious infection or metabolic cause -?Polypharmacy secondary to patients psychiatric medications, though over all suspect just worsening of progressive dementia -Continue 1:1 as needed Schizophrenia -Continue Fluphenazine -Continue Benztropine -Follows with outpatient psychiatry at the [place] Anxiety/PTSD/Insomnia -Continue Effexor -Continue Trazodone 200mg qhs PRN BPH -Continue Flomax Dispo: Med/Surg - reaching out to [place] for SNF placement FEN: HH soft bite sized DVT: Heparin Code: DNR/DNI (2) Dementia: (3) Anxiety disorder: (4) PTSD (post-traumatic stress disorder): Admission and Anticipated Discharge Date Admission Date: May 10, 2020 Supervising Physician Co-Signing Physician Notes Resident Physician Supervision Note: I independently interviewed and examined the patient and verified the thompson history and physical, reviewed labs and image studies, discussed the case with the resident Dr. Wilkinson and agree with the findings and care plan. Subjective Patient evaluated at the bedside this morning. Patient noting that he was feeling well and had no complaints. Denied any chest pain, chest pressure, SOB, abdominal pain or discomfort. No questions or concerns at this time. Review of Systems Constitutional: no fever and no chills Respiratory: no cough, no dyspnea and no dyspnea on exertion Cardiovascular: no chest pain, no dyspnea on exertion and no palpitations Gastrointestinal: no abdominal pain, no nausea, no vomiting, no constipation and no diarrhea/loose stools Physical Exam Constitutional: + thin; no acute distress Respiratory: normal respiratory effort, lungs clear to auscultation Cardiovascular: RRR, no murmur, no edema Gastrointestinal (Abdomen): Inspection/Auscultation: abdomen normal to inspection and normal bowel sounds; abdomen not distended Percussion/Palpation: abdomen soft; abdomen nontender Psychiatric: Orientation: alert, oriented to person and cooperative; + not oriented to place and + not oriented to time Results & Data Results & Data ([facility]) Vital Signs (Past 12 Hours) Vital Signs Temp Pulse Resp BP Pulse Ox 05/11/20 22:49 36.4 C L 70 18 145/72 H 98 Resident Activity Tracking Resident Involvement: Resident Care Provided Care Provided: Adult Hospital Medicine
[2020-05-12] MEDS: BENZTROPINE MESYLATE 1 MG TAB PO SCH ×2 (08:37→20:33)
[2020-05-12] MEDS: MULTIVITAMIN TAB PO SCH (08:38)
[2020-05-12] MEDS: VENLAFAXINE HCL XR 75 MG CAPXR PO SCH (08:39)
[2020-05-12] MEDS: TAMSULOSIN HCL 0.4 MG CAP PO SCH (08:40)
[2020-05-12] MEDS: NICOTINE 14 MG/24 HR PATCH TD SCH (08:40)
[2020-05-12] MEDS: CHOLECALCIFEROL 1,000 UNITS 25 MCG TAB PO SCH (08:40)
[2020-05-12] MEDS: HEPARIN SOD 5,000 UNIT/0.5 ML VIAL SQ SCH ×2 (08:41→20:37)
[2020-05-12] MEDS: DOCUSATE SODIUM 100 MG CAP PO SCH ×2 (08:42→20:42)
[2020-05-12] MEDS: POLYETHYLENE (MIRALAX) 17 GM PACK PO PRN (13:17)
[2020-05-12] MEDS: PANTOprazole 40 MG TAB PO SCH (13:17)
[2020-05-12] MEDS: traZODone HCL 100 MG TAB PO PRN (23:37)
[2020-05-13] MEDS: VENLAFAXINE HCL XR 75 MG CAPXR PO SCH (09:41)
[2020-05-13] MEDS: HEPARIN SOD 5,000 UNIT/0.5 ML VIAL SQ SCH ×2 (09:43→20:36)
[2020-05-13] MEDS: MULTIVITAMIN TAB PO SCH (09:43)
[2020-05-13] MEDS: TAMSULOSIN HCL 0.4 MG CAP PO SCH (09:44)
[2020-05-13] MEDS: PANTOprazole 40 MG TAB PO SCH (09:44)
[2020-05-13] MEDS: NICOTINE 14 MG/24 HR PATCH TD SCH (09:46)
[2020-05-13] MEDS: BENZTROPINE MESYLATE 1 MG TAB PO SCH ×2 (09:46→20:30)
[2020-05-13] MEDS: CHOLECALCIFEROL 1,000 UNITS 25 MCG TAB PO SCH (09:46)
[2020-05-13] MEDS: DOCUSATE SODIUM 100 MG CAP PO SCH ×2 (09:51→20:31)
--- NOTE | 2020-05-13 10:34 | Hospitalist Progress Note ---
Date of Service May 13, 2020 Assessment & Plan (1) Falls: Patient is a 74 year old male with PMHx COPD, PTSD, Asthma, Duodenal Ulcer, GERD, Esophagitis, Schizophrenia, BPH who presented initially secondary to worsening weakness and falls. Fall -Suspect secondary to generalized weakness over all/med side effect/ worsening dementia -PT/OT ordered -Patient medically stable for discharge, Case Management assisting with searching for SNF placement Dementia -Progressive worsening -No obvious infection or metabolic cause -?Polypharmacy secondary to patients psychiatric medications, though over all suspect just worsening of progressive dementia -Continue 1:1 as needed Schizophrenia -Continue Fluphenazine -Continue Benztropine -Follows with outpatient psychiatry at the [place] -May be able to consider admission to [place] for medication adjustment, Case Management reaching out. Anxiety/PTSD/Insomnia -Continue Effexor -Continue Trazodone 200mg qhs PRN BPH -Continue Flomax Dispo: Med/Surg - reaching out to multiple locations for placement FEN: HH soft bite sized DVT: Heparin Code: DNR/DNI (2) Dementia: (3) Anxiety disorder: (4) PTSD (post-traumatic stress disorder): Admission and Anticipated Discharge Date Admission Date: May 10, 2020 Supervising Physician Co-Signing Physician Notes Resident Physician Supervision Note: I independently interviewed and examined the patient and verified the thompson hist ory and physical, reviewed labs and image studies, discussed the case with the resident Dr. Wilkinson and agree with the findings and care plan. Subjective Patient evaluated at the bedside this morning. Patient noting that he wanted to sleep and that he was feeling well otherwise. Denied chest pain, chest pressure, SOB, abdominal pain, fever, chills. No other complaints at this time. Review of Systems Review of Systems: All systems reviewed & are unremarkable except as noted in Subjective Physical Exam Constitutional: + thin; no acute distress Respiratory: normal respiratory effort, lungs clear to auscultation Cardiovascular: RRR, no murmur, no edema Gastrointestinal (Abdomen): Inspection/Auscultation: abdomen normal to inspection and normal bowel sounds; abdomen not distended Percussion/Palpation: abdomen soft; abdomen nontender Psychiatric: Orientation: alert and oriented to person; + not oriented to place and + not oriented to time Results & Data Results & Data ([facility]) Vital Signs (Past 12 Hours) Vital Signs Temp Pulse Resp BP Pulse Ox 05/12/20 23:08 36.3 C L 78 16 126/75 97 Resident Activity Tracking Resident Involvement: Resident Care Provided Care Provided: Adult Hospital Medicine
[2020-05-13] MEDS: traZODone HCL 100 MG TAB PO PRN (23:22)
--- NOTE | 2020-05-14 06:35 | Hospitalist Progress Note ---
Date of Service May 14, 2020 Assessment & Plan (1) Falls: Patient is a 74 year old male with PMHx COPD, PTSD, Asthma, Duodenal Ulcer, GERD, Esophagitis, Schizophrenia, BPH who presented initially secondary to worsening weakness and falls. Fall -Suspect secondary to generalized weakness over all/med side effect/ worsening dementia -PT/OT ordered -Patient medically stable for discharge, Case Management assisting with searching for SNF placement Dementia -Progressive worsening -No obvious infection or metabolic cause -?Polypharmacy secondary to patients psychiatric medications, though over all suspect just worsening of progressive dementia -Continue 1:1 as needed, discussed with nursing about removing if not needed. Schizophrenia -Continue Fluphenazine -Continue Benztropine -Follows with outpatient psychiatry at the [place] -May be able to consider admission to [place] for medication adjustment, Case Management reaching out. Anxiety/PTSD/Insomnia -Continue Effexor -Continue Trazodone 200mg qhs PRN BPH -Continue Flomax Dispo: Med/Surg - reaching out to multiple locations for placement FEN: HH soft bite sized DVT: Heparin Code: DNR/DNI (2) Dementia: (3) Anxiety disorder: (4) PTSD (post-traumatic stress disorder): Admission and Anticipated Discharge Date Admission Date: May 10, 2020 Supervising Physician Co-Signing Physician Notes Resident Physician Supervision Note: I independently interviewed and examined the patient and verified the thompson history and physical, reviewed labs and image studies, discussed the case with the resident Dr. Wilkinson and agree with the findings and care plan. Subjective Patient evaluated at the bedside. Preferred to sleep. Denied any pain, difficulty breathing, chest pain. Review of Systems Review of Systems: Unobtainable due to reduced consciousness Denied chest pain, shortness of breath, abdominal pain Physical Exam Constitutional: + thin; no acute distress Respiratory: normal respiratory effort, lungs clear to auscultation Cardiovascular: RRR, no murmur, no edema Gastrointestinal (Abdomen): Inspection/Auscultation: abdomen normal to inspection and normal bowel sounds; abdomen not distended Percussion/Palpation: abdomen soft; abdomen nontender Results & Data Results & Data ([facility]) Vital Signs (Past 12 Hours) Vital Signs Temp Pulse Resp BP Pulse Ox 05/13/20 22:50 37.1 C 77 18 107/71 98 Resident Activity Tracking Resident Involvement: Resident Care Provided Care Provided: Adult [facility] Medicine
[2020-05-14] MEDS: CHOLECALCIFEROL 1,000 UNITS 25 MCG TAB PO SCH (12:43)
[2020-05-14] MEDS: PANTOprazole 40 MG TAB PO SCH (12:44)
[2020-05-14] MEDS: MULTIVITAMIN TAB PO SCH (12:44)
[2020-05-14] MEDS: VENLAFAXINE HCL XR 75 MG CAPXR PO SCH (12:45)
[2020-05-14] MEDS: TAMSULOSIN HCL 0.4 MG CAP PO SCH (12:46)
[2020-05-14] MEDS: BENZTROPINE MESYLATE 1 MG TAB PO SCH ×2 (12:47→20:26)
[2020-05-14] MEDS: NICOTINE 14 MG/24 HR PATCH TD SCH (12:48)
[2020-05-14] MEDS: HEPARIN SOD 5,000 UNIT/0.5 ML VIAL SQ SCH ×2 (12:59→20:27)
[2020-05-14] MEDS: DOCUSATE SODIUM 100 MG CAP PO SCH ×2 (12:59→20:28)
[2020-05-15] MEDS: traZODone HCL 100 MG TAB PO PRN (02:08)
--- NOTE | 2020-05-15 07:12 | Hospitalist Progress Note ---
Date of Service May 15, 2020 Assessment & Plan (1) Falls: Patient is a 74 year old male with PMHx COPD, PTSD, Asthma, Duodenal Ulcer, GERD, Esophagitis, Schizophrenia, BPH who presented initially secondary to worsening weakness and falls. Fall -Suspect secondary to generalized weakness over all/med side effect/ worsening dementia -PT/OT ordered -Patient medically stable for discharge, Case Management assisting with searching for SNF placement Dementia -Progressive worsening -No obvious infection or metabolic cause -?Polypharmacy secondary to patients psychiatric medications, though over all suspect just worsening of progressive dementia -Continue 1:1 as needed, discussed with nursing about removing if not needed. Schizophrenia -Continue Fluphenazine -Continue Benztropine -Follows with outpatient psychiatry at the [facility] -May be able to consider admission to [place] for medication adjustment, Case Management reaching out. Anxiety/PTSD/Insomnia -Continue Effexor -Continue Trazodone 200mg qhs PRN BPH -Continue Flomax Dispo: Med/Surg - reaching out to multiple locations for placement FEN: HH soft bite sized DVT: Heparin Code: DNR/DNI (2) Dementia: (3) Anxiety disorder: (4) PTSD (post-traumatic stress disorder): Admission and Anticipated Discharge Date Admission Date: May 10, 2020 Supervising Physician Co-Signing Physician Notes Resident Physician Supervision Note: I independently interviewed and examined the patient and verified the thompson history and physical, reviewed labs and image studies, discussed the case with the resident Dr. Wilkinson and agree with the findings and care plan. Subjective Patient examined while seated in the chair eating breakfast. Patient awake and animated this morning. Notes he is without complaints. Denies any chest pain, chest pressure, SOB, abdominal pain, NVD. Only oriented to person. When asked where he was stated "beats me, I never know." Review of Systems Review of Systems: All systems reviewed & are unremarkable except as noted in Subjective Physical Exam Constitutional: + thin; no acute distress ENMT: external ear and nose normal, oropharynx normal Neck: trachea midline, no thyromegaly Respiratory: normal respiratory effort, lungs clear to auscultation Cardiovascular: RRR, no murmur, no edema Gastrointestinal (Abdomen): Inspection/Auscultation: abdomen normal to inspection and normal bowel sounds; abdomen not distended Percussion/Palpation: abdomen soft; abdomen nontender Neurologic: awake Psychiatric: Orientation: alert and oriented to person; + not oriented to place and + not oriented to time Results & Data Results & Data ([facility]) Vital Signs (Past 12 Hours) Vital Signs Temp Pulse Resp BP Pulse Ox 05/15/20 07:06 36.4 C L 67 16 137/67 99 05/14/20 22:42 37.0 C 71 20 128/55 L 100 Resident Activity Tracking Resident Involvement: Resident Care Provided Care Provided: Adult Hospital Medicine
[2020-05-15] MEDS: NICOTINE 14 MG/24 HR PATCH TD SCH (09:21)
[2020-05-15] MEDS: BENZTROPINE MESYLATE 1 MG TAB PO SCH ×2 (09:21→20:14)
[2020-05-15] MEDS: VENLAFAXINE HCL XR 75 MG CAPXR PO SCH (09:22)
[2020-05-15] MEDS: PANTOprazole 40 MG TAB PO SCH (09:22)
[2020-05-15] MEDS: TAMSULOSIN HCL 0.4 MG CAP PO SCH (09:22)
[2020-05-15] MEDS: CHOLECALCIFEROL 1,000 UNITS 25 MCG TAB PO SCH (09:22)
[2020-05-15] MEDS: MULTIVITAMIN TAB PO SCH (09:23)
[2020-05-15] MEDS: HEPARIN SOD 5,000 UNIT/0.5 ML VIAL SQ SCH ×2 (09:24→20:22)
[2020-05-15] MEDS: DOCUSATE SODIUM 100 MG CAP PO SCH ×2 (09:28→20:14)
[2020-05-16] MEDS: ACETAMINOPHEN 325 MG TAB PO PRN (00:04)
--- NOTE | 2020-05-16 07:30 | Hospitalist Progress Note ---
Date of Service May 16, 2020 Assessment & Plan (1) Falls: Patient is a 74 year old male with PMHx with of short-term memory loss of uncertain etiology who was admitted for progressive weakness and subsequent falls over past week. Currently awaiting placement to SNF. Fall -Suspect secondary to deconditioning/med side effect/ worsening dementia -PT/OT ordered -Patient medically stable for discharge, Case Management assisting with searching for SNF placement Confusion - etiology unknown, although patient does have a history of dementia - patient's daughter reported history of "short term memory loss" - patient does admit to a significant EtOH history (possibility alcohol dementia) - possibly secondary to medication side effect from multiple psychiatric medications - no obvious metabolic derangement (WBC, TSH, LFTs, Electrolytes, UA normal) - head imaging was not ordered on admission but has had them as outpatient. - currently not on any pharmacotherapy such as Aricept or Namenda - Continue 1:1 as needed for impulsiveness Schizophrenia -Continue Fluphenazine -Continue Benztropine -Follows with outpatient psychiatry at the [place] Anxiety/PTSD/Insomnia -Continue Effexor -Continue Trazodone 200mg qhs PRN BPH -Continue Flomax Dispo: Med/Surg - reaching out to [place] for SNF placement. CM following FEN: HH soft bite sized DVT: Heparin Code: DNR/DNI (2) Dementia: (3) Anxiety disorder: (4) PTSD (post-traumatic stress disorder): Admission and Anticipated Discharge Date Admission Date: May 10, 2020 Supervising Physician Co-Signing Physician Notes Resident Physician Supervision Note: I independently interviewed and examined the patient and verified the thompson history and physical, reviewed labs and image studies, discussed the case with the resident Dr. Barksdale and agree with the findings and care plan. Subjective Patient is awake, sitting in bed, sipping coffee. He denies any acute complaints. When asked where he is, he replied [place] I asked him if he ever drank alcohol in the past, and he said yes. He said he would have multiple drinks per day, every day. He is unable to tell me how long he drank heavily for. Review of Systems Review of Systems: Unobtainable due to cognitive status Physical Exam Constitutional: well developed and well nourished; no acute distress Eyes: + anicteric sclerae ENMT: external ear and nose normal, oropharynx normal Neck: normal visual inspection and trachea midline Respiratory: normal respiratory effort, lungs clear to auscultation Patient appears to be a mouth breather Cardiovascular: RRR, no murmur, no edema Heart Sounds: normal S1 and normal S2 Gastrointestinal (Abdomen): normal bowel sounds, soft, nontender, no hepatosplenomegaly Musculoskeletal: He appears to have a calcification of R trapezius muscle Skin: no rashes, warm and dry Neurologic: moves all extremities and + confused Cranial Nerves: + hearing impairment seems to be somewhat inattentive Psychiatric: Orientation: alert and oriented to person; + not oriented to place and + not oriented to time Results & Data Results & Data ([facility]) Vital Signs (Past 12 Hours) Vital Signs Temp Pulse Resp BP Pulse Ox 05/15/20 23:07 36.6 C 80 18 119/79 96 Resident Activity Tracking Resident Involvement: Resident Care Provided Care Provided: Adult Hospital Medicine
[2020-05-16] MEDS: VENLAFAXINE HCL XR 75 MG CAPXR PO SCH (10:00)
[2020-05-16] MEDS: PANTOprazole 40 MG TAB PO SCH (10:00)
[2020-05-16] MEDS: DOCUSATE SODIUM 100 MG CAP PO SCH ×2 (10:00→20:47)
[2020-05-16] MEDS: CHOLECALCIFEROL 1,000 UNITS 25 MCG TAB PO SCH (10:00)
[2020-05-16] MEDS: NICOTINE 14 MG/24 HR PATCH TD SCH (10:00)
[2020-05-16] MEDS: TAMSULOSIN HCL 0.4 MG CAP PO SCH (10:00)
[2020-05-16] MEDS: MULTIVITAMIN TAB PO SCH (10:00)
[2020-05-16] MEDS: HEPARIN SOD 5,000 UNIT/0.5 ML VIAL SQ SCH ×2 (10:00→20:44)
[2020-05-16] MEDS: BENZTROPINE MESYLATE 1 MG TAB PO SCH ×2 (10:00→22:03)
--- NOTE | 2020-05-17 06:33 | Hospitalist Progress Note ---
Date of Service May 17, 2020 Assessment & Plan (1) Falls: Patient is a 74 year old male with PMHx with of dementia of uncertain etiology who was admitted for progressive weakness and subsequent falls over past week. Currently awaiting placement to SNF. Fall -Suspect secondary to deconditioning/worsening dementia/med side effect (fluphenazine known to cause falls)/ multifactorial -head CT negative for acute bleed at [facility] one day prior to admission here -PT/OT ordered, recommending SNF placement -continue fall precautions Dementia - patient's daughter reported history of "short term memory loss" - patient does admit to a significant EtOH history (possibility alcohol dementia) - no obvious metabolic derangement (WBC, TSH, LFTs, Electrolytes, UA normal) - head imaging was not ordered on admission, however he had a head CT at [facility] one day prior to his presentation here. Per review of records, it showed no evidence of acute bleed, but chronic vascular changes and white matter changes consistent with age and dementia. 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 - currently not on any pharmacotherapy such as Aricept or Namenda - Continue 1:1 as needed for impulsiveness/ wandering Urinary Retention - Patient was not known to have been retaining previously, but was straight cathed for 708 and 100 cc at [place] [facility], respectively - UA benign on admission - may be secondary to anticholinergic medication (benztropine and fluphenazine) - patient has been spontaneously voiding - bladder scan today unable to detect significant residual volume Schizophrenia -Continue Fluphenazine -Continue Benztropine -Follows with outpatient psychiatry at the [place] -given issues with falls and possible urinary retention - could consider med titration/switch if permissible. Anxiety/PTSD/Insomnia -Continue Effexor -Continue Trazodone 200mg qhs PRN -Patient continues to have PTSD and nightmares at night, does better with light in the room near an open door BPH -Continue Flomax (although this medication is on [facility] list) Dispo: Med/Surg - reaching out to [place] for SNF placement. CM following FEN: HH soft bite sized DVT: Heparin Code: DNR/DNI; Daughter would want to be contacted to determine whether a trial of intubation would be wanted for declining respiratory status (2) Dementia: (3) Anxiety disorder: (4) PTSD (post-traumatic stress disorder): Admission and Anticipated Discharge Date Admission Date: May 10, 2020 Supervising Physician Co-Signing Physician Notes Resident Physician Supervision Note: I independently interviewed and examined the patient and verified the thompson history and physical, reviewed labs and image studies, discussed the case with the resident Dr. Barksdale and agree with the findings and care plan. Subjective Sitting in bedside chair today, sipping coffee. Reports he is feeling well. Denies any acute complaints. 1:1 present in room Review of Systems Review of Systems: All systems reviewed & are unremarkable except as noted in HPI & below Physical Exam Constitutional: well developed and well nourished; no acute distress Eyes: + anicteric sclerae ENMT: external ear and nose normal, oropharynx normal Neck: normal visual inspection and trachea midline Respiratory: normal respiratory effort, lungs clear to auscultation Cardiovascular: RRR, no murmur, no edema Heart Sounds: normal S1 and normal S2 Gastrointestinal (Abdomen): normal bowel sounds, soft, nontender, no hepatosplenomegaly Musculoskeletal: + bone spur on R clavicle, non-tender to palpation Skin: no rashes, warm and dry Neurologic: moves all extremities and + confused Cranial Nerves: + hearing impairment Psychiatric: Orientation: alert and oriented to person; + not oriented to place and + not oriented to time Results & Data Results & Data ([facility]) Vital Signs (Past 12 Hours) Vital Signs Temp Pulse Resp BP Pulse Ox 05/16/20 22:54 36.6 C 70 18 161/71 H 96 Resident Activity Tracking Resident Involvement: Resident Care Provided Care Provided: Adult Hospital Medicine
[2020-05-17] MEDS: BENZTROPINE MESYLATE 1 MG TAB PO SCH ×2 (08:39→20:02)
[2020-05-17] MEDS: CHOLECALCIFEROL 1,000 UNITS 25 MCG TAB PO SCH (08:40)
[2020-05-17] MEDS: VENLAFAXINE HCL XR 75 MG CAPXR PO SCH (08:40)
[2020-05-17] MEDS: PANTOprazole 40 MG TAB PO SCH (08:41)
[2020-05-17] MEDS: TAMSULOSIN HCL 0.4 MG CAP PO SCH (08:41)
[2020-05-17] MEDS: HEPARIN SOD 5,000 UNIT/0.5 ML VIAL SQ SCH ×2 (08:42→20:02)
[2020-05-17] MEDS: MULTIVITAMIN TAB PO SCH (08:42)
[2020-05-17] MEDS: NICOTINE 14 MG/24 HR PATCH TD SCH (08:43)
[2020-05-17] MEDS: DOCUSATE SODIUM 100 MG CAP PO SCH ×2 (08:53→20:02)
[2020-05-17] MEDS ORDERED: ONDANSETRON INJ 2 MG/ML 2 ML VIAL IV PRN (17:08)
[2020-05-17] MEDS ORDERED: POLYETHYLENE (MIRALAX) 17 GM PACK PO PRN (17:08)
--- NOTE | 2020-05-18 06:55 | Hospitalist Progress Note ---
Date of Service May 18, 2020 Assessment & Plan (1) Falls: Patient is a 74 year old male with PMHx with of dementia of uncertain etiology who was admitted for progressive weakness and subsequent falls over past week. Currently awaiting placement to SNF. Fall -Suspect secondary to deconditioning/worsening dementia/med side effect (fluphenazine known to cause falls)/ multifactorial -head CT negative for acute bleed at [facility] one day prior to admission here -PT/OT ordered, recommending SNF placement -continue fall precautions Dementia - patient's daughter reported history of "short term memory loss" - patient does admit to a significant EtOH history (possibility alcohol dementia) - no obvious metabolic derangement (WBC, TSH, LFTs, Electrolytes, UA normal) - head imaging was not ordered on admission, however he had a head CT at [facility] one day prior to his presentation here. Per review of records, it showed no evidence of acute bleed, but chronic vascular changes and white matter changes consistent with age and dementia. 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 - currently not on any pharmacotherapy such as Aricept or Namenda - Continue 1:1 as needed for impulsiveness/ wandering Urinary Retention - Patient was not known to have been retaining previously, but was straight cathed for 708 and 100 cc at [place] in [facility], respectively - UA benign on admission - may be secondary to anticholinergic medication (benztropine and fluphenazine) - patient has been spontaneously voiding - bladder scan yesterday unable to detect significant residual volume Schizophrenia -Continue Fluphenazine -Continue Benztropine -Follows with outpatient psychiatry at the [place] -given issues with falls and possible urinary retention - could consider med titration/switch if permissible. Anxiety/PTSD/Insomnia -Continue Effexor -Continue Trazodone 200mg qhs PRN -Patient continues to have PTSD and nightmares at night, does better with light in the room near an open door BPH -Continue Flomax (although this medication is on [facility] list) Dispo: Med/Surg - reaching out to [place] for SNF placement. CM following FEN: HH soft bite sized DVT: Heparin Code: DNR/DNI; Daughter would want to be contacted to determine whether a trial of intubation would be wanted for declining respiratory status (2) Dementia: (3) Anxiety disorder: (4) PTSD (post-traumatic stress disorder): Admission and Anticipated Discharge Date Admission Date: May 10, 2020 Supervising Physician Co-Signing Physician Notes I personally examined the patient and verified all thompson points of history and exam, discussed case, and agree with decision making with Dr Barksdale. no new problems. resting comfortably. case management still working on placement. vitals noted nad heent nc at [facility] breathing unlabored no accessory muscles good effort skin no rashes no pallor or icterus dementia - no longer safe at home. working on placement. medically stable once bed available, but not safe in home environment. otherwise as above Subjective Awake, sitting at beside eating his breakfast. Says he is doing well, no acute complaints. Review of Systems Review of Systems: All systems reviewed & are unremarkable except as noted in HPI & below Physical Exam Constitutional: well developed and well nourished; no acute distress Eyes: + anicteric sclerae ENMT: external ear and nose normal, oropharynx normal Neck: normal visual inspection and trachea midline Respiratory: normal respiratory effort, lungs clear to auscultation Cardiovascular: RRR, no murmur, no edema Heart Sounds: normal S1 and normal S2 Gastrointestinal (Abdomen): normal bowel sounds, soft, nontender, no hepatosplenomegaly Musculoskeletal: Shoulder: + AC joint abnormality (R side is separtaed. non- tender) Skin: no rashes, warm and dry Neurologic: moves all extremities and + confused Cranial Nerves: + hearing impairment Psychiatric: Orientation: alert and oriented to person; + not oriented to place and + not oriented to time Results & Data Results & Data ([facility]) Vital Signs (Past 12 Hours) Vital Signs Temp Pulse Resp BP Pulse Ox 05/18/20 03:33 78 98 05/18/20 03:18 36.4 C L 18 157/83 H Resident Activity Tracking Resident Involvement: Resident Care Provided Care Provided: Adult Hospital Medicine
[2020-05-18] MEDS: BENZTROPINE MESYLATE 1 MG TAB PO SCH ×2 (08:26→22:04)
[2020-05-18] MEDS: HEPARIN SOD 5,000 UNIT/0.5 ML VIAL SQ SCH ×2 (08:28→22:04)
[2020-05-18] MEDS: DOCUSATE SODIUM 100 MG CAP PO SCH ×2 (08:28→22:04)
[2020-05-18] MEDS: PANTOprazole 40 MG TAB PO SCH (08:29)
[2020-05-18] MEDS: NICOTINE 14 MG/24 HR PATCH TD SCH (08:29)
[2020-05-18] MEDS: MULTIVITAMIN TAB PO SCH (08:29)
[2020-05-18] MEDS: VENLAFAXINE HCL XR 75 MG CAPXR PO SCH (08:30)
[2020-05-18] MEDS: CHOLECALCIFEROL 1,000 UNITS 25 MCG TAB PO SCH (08:30)
[2020-05-18] MEDS: TAMSULOSIN HCL 0.4 MG CAP PO SCH (08:30)
--- NOTE | 2020-05-18 15:58 | Billing Data ---
Date of Service May 18, 2020 Coding Level of Care Code 43457 Subseq Hosp Care Lvl 1
[2020-05-19] MEDS: MULTIVITAMIN TAB PO SCH (09:28)
[2020-05-19] MEDS: BENZTROPINE MESYLATE 1 MG TAB PO SCH ×2 (09:28→21:21)
[2020-05-19] MEDS: PANTOprazole 40 MG TAB PO SCH (09:28)
[2020-05-19] MEDS: CHOLECALCIFEROL 1,000 UNITS 25 MCG TAB PO SCH (09:29)
[2020-05-19] MEDS: TAMSULOSIN HCL 0.4 MG CAP PO SCH (09:29)
[2020-05-19] MEDS: DOCUSATE SODIUM 100 MG CAP PO SCH ×2 (09:29→21:21)
[2020-05-19] MEDS: VENLAFAXINE HCL XR 75 MG CAPXR PO SCH (09:29)
[2020-05-19] MEDS: HEPARIN SOD 5,000 UNIT/0.5 ML VIAL SQ SCH ×2 (09:32→21:39)
[2020-05-19] MEDS: NICOTINE 14 MG/24 HR PATCH TD SCH (09:32)
--- NOTE | 2020-05-19 11:36 | Hospitalist Progress Note ---
Date of Service May 19, 2020 Assessment & Plan (1) Falls: Patient is a 74 year old male with PMHx with of dementia of uncertain etiology who was admitted for progressive weakness and subsequent falls over past week. Currently awaiting placement to SNF. Fall -Suspect secondary to deconditioning/worsening dementia/med side effect (fluphenazine known to cause falls)/ multifactorial -head CT negative for acute bleed at [facility] one day prior to admission here -PT/OT ordered, recommending SNF placement -continue fall precautions Dementia - patient's daughter reported history of "short term memory loss" - patient does admit to a significant EtOH history (possibility alcohol dementia) - no obvious metabolic derangement (WBC, TSH, LFTs, Electrolytes, UA normal) - head imaging was not ordered on admission, however he had a head CT at [facility] one day prior to his presentation here. Per review of records, it showed no evidence of acute bleed, but chronic vascular changes and white matter changes consistent with age and dementia. 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 - currently not on any pharmacotherapy such as Aricept or Namenda - Continue 1:1 as needed for impulsiveness/ wandering Urinary Retention - Patient was not known to have been retaining previously, but was straight cathed for 708 and 100 cc at [facility] in [facility], respectively - UA benign on admission - may be secondary to anticholinergic medication (benztropine and fluphenazine) - patient has been spontaneously voiding - bladder scan yesterday unable to detect significant residual volume Schizophrenia -Continue Fluphenazine -Continue Benztropine -Follows with outpatient psychiatry at the [facility] -given issues with falls and possible urinary retention - could consider med titration/switch if permissible. Anxiety/PTSD/Insomnia -Continue Effexor -Continue Trazodone 200mg qhs PRN -Patient continues to have PTSD and nightmares at night, does better with light in the room near an open door BPH -Continue Flomax (although this medication is on [facility] list) Dispo: Med/Surg - CM working to find placement, will be evaluated by [place] as candidate for regular unit (memory unit currently full) FEN: HH soft bite sized DVT: Heparin Code: DNR/DNI; Daughter would want to be contacted to determine whether a trial of intubation would be wanted for declining respiratory status (2) Dementia: (3) Anxiety disorder: (4) PTSD (post-traumatic stress disorder): Admission and Anticipated Discharge Date Admission Date: May 10, 2020 Supervising Physician Co-Signing Physician Notes I personally examined the patient and verified all thompson points of history and exam, discussed case, and agree with decision making with Dr Barksdale. no new issues. case management still exploring all possible placement options. nursing notes no problems vitals noted nad heent nc at mmm breathing unlabored no accessory muscles good effort skin no rashes no pallor or icterus dementia - no longer safe at home despite what had been very significant family efforts to keep him safe. working on placement. medically stable once bed available, but not safe in home environment. otherwise as above Subjective No acute events overnight. ambulating well. Eating well. Says he is doing well, no acute complaints. Review of Systems Review of Systems: All systems reviewed & are unremarkable except as noted in HPI & below Physical Exam Constitutional: well developed and well nourished; no acute distress Eyes: + anicteric sclerae ENMT: external ear and nose normal, oropharynx normal Neck: normal visual inspection and trachea midline Respiratory: normal respiratory effort, lungs clear to auscultation Cardiovascular: RRR, no murmur, no edema Heart Sounds: normal S1 and normal S2 Gastrointestinal (Abdomen): normal bowel sounds, soft, nontender, no hepatosplenomegaly Musculoskeletal: Shoulder: + AC joint abnormality (R side is separtaed. non- tender) Skin: no rashes, warm and dry Neurologic: moves all extremities and + confused Cranial Nerves: + hearing impairment Psychiatric: Orientation: alert and oriented to person; + not oriented to place and + not oriented to time Results & Data Results & Data ([facility]) Vital Signs (Past 12 Hours) Vital Signs Temp Pulse Resp BP Pulse Ox 05/19/20 09:55 36.4 C L 68 18 116/66 95 Resident Activity Tracking Resident Involvement: Resident Care Provided Care Provided: Adult [facility] Medicine
--- NOTE | 2020-05-19 16:09 | Billing Data ---
Date of Service May 19, 2020 Coding Level of Care Code 92181 Subseq Hosp Care Lvl 1
[2020-05-19] MEDS: traZODone HCL 100 MG TAB PO PRN (21:38)
[2020-05-20] MEDS: MULTIVITAMIN TAB PO SCH (11:06)
[2020-05-20] MEDS: CHOLECALCIFEROL 1,000 UNITS 25 MCG TAB PO SCH (11:06)
[2020-05-20] MEDS: VENLAFAXINE HCL XR 75 MG CAPXR PO SCH (11:06)
[2020-05-20] MEDS: PANTOprazole 40 MG TAB PO SCH (11:06)
[2020-05-20] MEDS: TAMSULOSIN HCL 0.4 MG CAP PO SCH (11:06)
[2020-05-20] MEDS: NICOTINE 14 MG/24 HR PATCH TD SCH (11:07)
[2020-05-20] MEDS: BENZTROPINE MESYLATE 1 MG TAB PO SCH ×2 (11:07→21:26)
[2020-05-20] MEDS: DOCUSATE SODIUM 100 MG CAP PO SCH ×2 (11:07→21:26)
[2020-05-20] MEDS: HEPARIN SOD 5,000 UNIT/0.5 ML VIAL SQ SCH ×2 (11:08→21:26)
--- NOTE | 2020-05-20 11:11 | Hospitalist Progress Note ---
Date of Service May 20, 2020 Assessment & Plan (1) Falls: Patient is a 74 year old male with PMHx with of dementia of uncertain etiology who was admitted for progressive weakness and subsequent falls over past week. Due to his declining status, patient requires placement as home felt to be an unsure option (per daughter). Case Management working to find appropriate facility. Fall -Suspect secondary to deconditioning/worsening dementia/med side effect (flup henazine known to cause falls)/ multifactorial -head CT negative for acute bleed at [facility] one day prior to admission here -PT/OT ordered, recommending SNF placement -continue fall precautions Dementia - patient's daughter reported history of "short term memory loss" - patient does admit to a significant EtOH history (possibility alcohol dementia) - no obvious metabolic derangement (WBC, TSH, LFTs, Electrolytes, UA normal) - head imaging was not ordered on admission, however he had a head CT at [facility] one day prior to his presentation here. Per review of records, it showed no evidence of acute bleed, but chronic vascular changes and white matter changes consistent with age and dementia. 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 - currently not on any pharmacotherapy such as Aricept or Namenda - Continue 1:1 as needed for impulsiveness/ wandering Urinary Retention - Patient was not known to have been retaining previously, but was straight cathed for 708 and 100 cc at [facility] in [facility], respectively - UA benign on admission - may be secondary to anticholinergic medication (benztropine and fluphenazine) - patient has been spontaneously voiding - repeat bladder scan unable to detect significant residual volume Schizophrenia -Continue Fluphenazine -Continue Benztropine -Follows with outpatient psychiatry at the [facility] -given issues with falls and possible urinary retention - could consider med titration/switch if permissible. Anxiety/PTSD/Insomnia -Continue Effexor -Continue Trazodone 200mg qhs PRN -Patient continues to have PTSD and nightmares at night, does better with light in the room near an open door BPH -Continue Flomax (although this medication is on [facility] list) Dispo: Med/Surg - CM continues to work to find placement, will be evaluated by [facility] as candidate for regular unit (memory unit currently full) FEN: HH soft bite sized DVT: Heparin Code: DNR/DNI; Daughter would want to be contacted to determine whether a trial of intubation would be wanted for declining respiratory status (2) Dementia: (3) Anxiety disorder: (4) PTSD (post-traumatic stress disorder): Admission and Anticipated Discharge Date Admission Date: May 10, 2020 Supervising Physician Co-Signing Physician Notes Resident Physician Supervision Note: I was present with Dr. Cher Barksdale during the history and exam. I discussed the case with the resident and agree with the findings and plan as documented in the note. Any exceptions or clarifications are listed here: none Pt was lethargic and would not awaken enough for more that a few words, I however believe he was pretending to be asleep so we would leave him alone. Concern for progressing dementia that will require placement into a facility with an appropriate unit for memory impared residents. He offers no specific complaints and appears to be in no distress Awaiting CM assistance in placement Documented By: Anatoliy Gonzales MD Subjective no acute events overnight. patient asleep upon exam today but arousable. He has not yet touched his breakfast. Review of Systems Review of Systems: All systems reviewed & are unremarkable except as noted in HPI & below Physical Exam Constitutional: well developed and well nourished; no acute distress Eyes: + anicteric sclerae ENMT: external ear and nose normal, oropharynx normal Neck: normal visual inspection and trachea midline Respiratory: normal respiratory effort, lungs clear to auscultation Cardiovascular: RRR, no murmur, no edema Heart Sounds: normal S1 and normal S2 Gastrointestinal (Abdomen): normal bowel sounds, soft, nontender, no hepatosplenomegaly Musculoskeletal: Shoulder: + AC joint abnormality (R side is separtaed. non- tender) Skin: no rashes, warm and dry Neurologic: moves all extremities and + confused Cranial Nerves: + hearing impairment Psychiatric: Orientation: alert and oriented to person; + not oriented to place and + not oriented to time Results & Data Results & Data ([facility]) Vital Signs (Past 12 Hours) Vital Signs Temp Pulse Resp BP Pulse Ox 05/20/20 08:19 36.7 C 72 16 126/64 96 05/19/20 23:16 36.7 C 88 18 111/69 97 Resident Activity Tracking Resident Involvement: Resident Care Provided Care Provided: Adult [facility] Medicine
--- NOTE | 2020-05-20 12:38 | Billing Data ---
Date of Service May 20, 2020 Coding Level of Care Code 37952 Subseq Hosp Care Lvl 2
[2020-05-20] MEDS: ACETAMINOPHEN 325 MG TAB PO PRN (21:25)
[2020-05-20] MEDS: traZODone HCL 100 MG TAB PO PRN (21:26)
[2020-05-21] MEDS: VENLAFAXINE HCL XR 75 MG CAPXR PO SCH (12:37)
[2020-05-21] MEDS: MULTIVITAMIN TAB PO SCH (12:38)
[2020-05-21] MEDS: CHOLECALCIFEROL 1,000 UNITS 25 MCG TAB PO SCH (12:38)
[2020-05-21] MEDS: TAMSULOSIN HCL 0.4 MG CAP PO SCH (12:38)
[2020-05-21] MEDS: PANTOprazole 40 MG TAB PO SCH (12:38)
[2020-05-21] MEDS: DOCUSATE SODIUM 100 MG CAP PO SCH ×2 (12:39→20:26)
[2020-05-21] MEDS: BENZTROPINE MESYLATE 1 MG TAB PO SCH ×2 (12:39→20:25)
[2020-05-21] MEDS: NICOTINE 14 MG/24 HR PATCH TD SCH (12:40)
[2020-05-21] MEDS: HEPARIN SOD 5,000 UNIT/0.5 ML VIAL SQ SCH ×2 (12:41→20:34)
--- NOTE | 2020-05-21 13:19 | Hospitalist Progress Note ---
Date of Service May 21, 2020 Assessment & Plan (1) Falls: Patient is a 74 year old male with PMHx with of dementia of uncertain etiology who was admitted for progressive weakness and subsequent falls over past week. Due to his declining functional status, patient requires placement as home felt to be an unsure option (per daughter). Case Management working to find appropriate facility. Fall -Suspect secondary to deconditioning/worsening dementia/med side effect (fluphenazine known to cause falls)/ multifactorial -head CT negative for acute bleed at [facility] one day prior to admission here -PT/OT ordered, recommending SNF placement -continue fall precautions Dementia - patient's daughter reported history of "short term memory loss" - patient does admit to a significant EtOH history (possibility alcohol dementia) - no obvious metabolic derangement (WBC, TSH, LFTs, Electrolytes, UA normal) - head imaging was not ordered on admission, however he had a head CT at [facility] one day prior to his presentation here. Per review of records, it showed no evidence of acute bleed, but chronic vascular changes and white matter changes consistent with age and dementia. 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 - currently not on any pharmacotherapy such as Aricept or Namenda - Continue 1:1 as needed for impulsiveness/ wandering Urinary Retention - Patient was not known to have been retaining previously, but was straight cathed for 708 and 100 cc at [facility] in [facility], respectively - UA benign on admission - may be secondary to anticholinergic medication (benztropine and fluphenazine) - patient has been spontaneously voiding - repeat bladder scan unable to detect significant residual volume Schizophrenia -Continue Fluphenazine -Continue Benztropine -Follows with outpatient psychiatry at the [facility] -given issues with falls and possible urinary retention - could consider med titration/switch if permissible. Anxiety/PTSD/Insomnia -Continue Effexor -Continue Trazodone 200mg qhs PRN -Patient continues to have PTSD and nightmares at night, does better with light in the room near an open door BPH -Continue Flomax (although this medication is on [facility] list) Dispo: Med/Surg - CM continues to work to find placement, looking into [place] FEN: HH soft bite sized DVT: Heparin Code: DNR/DNI; Daughter would want to be contacted to determine whether a trial of intubation would be wanted for declining respiratory status (2) Dementia: (3) Anxiety disorder: (4) PTSD (post-traumatic stress disorder): Admission and Anticipated Discharge Date Admission Date: May 10, 2020 Supervising Physician Co-Signing Physician Notes Resident Physician Supervision Note: I was present with Dr. Cher Barksdale during the history and exam. I discussed the case with the resident and agree with the findings and plan as documented in the note. Any exceptions or clarifications are listed here: none Pt was lethargic once again and would not awaken enough for more that a few words, reassurance from nursing that he was awake and did eat breakfast. Concern for progressing dementia that will require placement into a facility with an appropriate unit for memory impaired residents. He offers no specific complaints and appears to be in no distress Appreciate CM assistance in placement Documented By: Anatoliy Gonzales MD Subjective No acute events overnight. Patient again sleeping in the room on exam, but arousable. Review of Systems Review of Systems: All systems reviewed & are unremarkable except as noted in HPI & below Physical Exam Constitutional: well developed and well nourished; no acute distress Eyes: + anicteric sclerae ENMT: external ear and nose normal, oropharynx normal Neck: normal visual inspection and trachea midline Respiratory: normal respiratory effort, lungs clear to auscultation Cardiovascular: RRR, no murmur, no edema Heart Sounds: normal S1 and normal S2 Gastrointestinal (Abdomen): normal bowel sounds, soft, nontender, no hepatosplenomegaly Musculoskeletal: Shoulder: + AC joint abnormality (R side is separtaed. non- tender) Skin: no rashes, warm and dry Neurologic: moves all extremities and + confused Cranial Nerves: + hearing impairment Psychiatric: Orientation: alert Resident Activity Tracking Resident Involvement: Resident Care Provided Care Provided: Adult Hospital Medicine
--- NOTE | 2020-05-21 15:32 | Billing Data ---
Date of Service May 21, 2020 Coding Level of Care Code 44944 Subseq Hosp Care Lvl 2
[2020-05-21] MEDS: MELATONIN 3 MG TAB PO PRN (20:35)
[2020-05-22] MEDS: traZODone HCL 100 MG TAB PO PRN (01:02)
[2020-05-22] MEDS: NICOTINE 14 MG/24 HR PATCH TD SCH (08:30)
[2020-05-22] MEDS: BENZTROPINE MESYLATE 1 MG TAB PO SCH ×2 (08:31→20:11)
[2020-05-22] MEDS: DOCUSATE SODIUM 100 MG CAP PO SCH ×2 (08:31→20:11)
[2020-05-22] MEDS: VENLAFAXINE HCL XR 75 MG CAPXR PO SCH (08:32)
[2020-05-22] MEDS: TAMSULOSIN HCL 0.4 MG CAP PO SCH (08:33)
[2020-05-22] MEDS: MULTIVITAMIN TAB PO SCH (08:33)
[2020-05-22] MEDS: CHOLECALCIFEROL 1,000 UNITS 25 MCG TAB PO SCH (08:34)
[2020-05-22] MEDS: PANTOprazole 40 MG TAB PO SCH (08:34)
[2020-05-22] MEDS: HEPARIN SOD 5,000 UNIT/0.5 ML VIAL SQ SCH ×2 (08:36→20:12)
--- NOTE | 2020-05-22 10:38 | Hospitalist Progress Note ---
Date of Service May 22, 2020 Assessment & Plan (1) Falls: Patient is a 74 year old male with PMHx with of dementia of uncertain etiology who was admitted for progressive weakness and subsequent falls over past week. Due to his declining functional status, patient requires placement as home felt to be an unsafe option (per daughter). Case Management working to find appropriate facility. Fall -Suspect secondary to deconditioning/worsening dementia/med side effect (fluphenazine known to cause falls)/ multifactorial -head CT negative for acute bleed at [facility] one day prior to admission here -PT/OT ordered, recommending SNF placement -continue fall precautions Dementia - patient's daughter reported history of "short term memory loss" - patient does admit to a significant EtOH history (possibility alcohol dementia) - no obvious metabolic derangement (WBC, TSH, LFTs, Electrolytes, UA normal) - head imaging was not ordered on admission, however he had a head CT at [facility] hospital one day prior to his presentation here. Per review of records, it showed no evidence of acute bleed, but chronic vascular changes and white matter changes consistent with age and dementia. 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 - currently not on any pharmacotherapy such as Aricept or Namenda - Continue 1:1 as needed for impulsiveness/ wandering Urinary Retention - Patient was not known to have been retaining previously, but was straight cathed for 708 and 100 cc at [facility] in [facility], respectively - UA benign on admission - may be secondary to anticholinergic medication (benztropine and fluphenazine) - patient has been spontaneously voiding - repeat bladder scan unable to detect significant residual volume Schizophrenia -Continue Fluphenazine -Continue Benztropine -Follows with outpatient psychiatry at the [facility] -given issues with falls and possible urinary retention - could consider med titration/switch if permissible. Anxiety/PTSD/Insomnia -Continue Effexor -Continue Trazodone 200mg qhs PRN -Patient continues to have PTSD and nightmares at night, does better with light in the room near an open door BPH -Continue Flomax (although this medication is on [facility] list) Dispo: Med/Surg - CM continues to work to find placement, looking into [place] FEN: HH soft bite sized DVT: Heparin Code: DNR/DNI; Daughter would want to be contacted to determine whether a trial of intubation would be wanted for declining respiratory status (2) Dementia: (3) Anxiety disorder: (4) PTSD (post-traumatic stress disorder): Admission and Anticipated Discharge Date Admission Date: May 10, 2020 Supervising Physician Co-Signing Physician Notes I personally examined the patient and verified all thompson points of history and exam, discussed case, and agree with decision making with Dr Barksdale. sitting on side of bed in room appearing happy and denies complaints, although really difficult to truly take much of any hx vitals noted nad heent nc at mmm breathing unlabored no accessory muscles good effort skin no rashes no pallor or icterus dementia - no longer safe at home despite what had been very significant family efforts to keep him safe. working on placement. medically stable once bed available, but not safe in home environment. placement has been difficult. otherwise as above Subjective No acute events overnight. Nursing did report he slept most of the night. He is awake and interactive on exam today. He ate all his breakfast this morning. He denies any acute complaints Review of Systems Review of Systems: All systems reviewed & are unremarkable except as noted in HPI & below Physical Exam Constitutional: well developed and well nourished; no acute distress Eyes: + anicteric sclerae ENMT: external ear and nose normal, oropharynx normal Neck: normal visual inspection and trachea midline Respiratory: normal respiratory effort, lungs clear to auscultation Cardiovascular: RRR, no murmur, no edema Heart Sounds: normal S1 and normal S2 Gastrointestinal (Abdomen): normal bowel sounds, soft, nontender, no hepatosplenomegaly Musculoskeletal: Shoulder: + AC joint abnormality (R side is separtaed. non- tender) Skin: no rashes, warm and dry Neurologic: moves all extremities and + confused Cranial Nerves: + hearing impairment Psychiatric: Orientation: alert Results & Data Results & Data ([facility]) Vital Signs (Past 12 Hours) Vital Signs Temp Pulse Resp BP Pulse Ox 05/22/20 08:08 36.4 C L 71 16 135/74 93 05/22/20 00:42 36.5 C 77 24 120/68 99 Resident Activity Tracking Resident Involvement: Resident Care Provided Care Provided: Adult [facility] Medicine
--- NOTE | 2020-05-22 16:31 | Billing Data ---
Date of Service May 22, 2020 Coding Level of Care Code 29475 Subseq Hosp Care Lvl 1
--- NOTE | 2020-05-23 07:23 | Hospitalist Progress Note ---
Date of Service May 23, 2020 Assessment & Plan (1) Falls: Patient is a 74 year old male with PMHx with of dementia of uncertain etiology who was admitted for progressive weakness and subsequent falls. Due to his declining functional status, patient requires placement as home felt to be an unsafe option (per daughter). Case Management working to find appropriate facility. Fall -Suspect secondary to deconditioning/worsening dementia/med side effect (fluphenazine known to cause falls)/ multifactorial -head CT negative for acute bleed at [facility] one day prior to admission here -PT/OT ordered, recommending SNF placement -continue fall precautions Dementia - patient's daughter reported history of "short term memory loss" - patient does admit to a significant EtOH history (possibility alcohol dementia) - no obvious metabolic derangement (WBC, TSH, LFTs, Electrolytes, UA normal) - head imaging was not ordered on admission, however he had a head CT at [facility] one day prior to his presentation here. Per review of records, it showed no evidence of acute bleed, but chronic vascular changes and white matter changes consistent with age and dementia. 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 - currently not on any pharmacotherapy such as Aricept or Namenda - Continue 1:1 as needed for impulsiveness/wandering Urinary Retention - Patient was not known to have been retaining previously, but was straight cathed for 708 and 100 cc at [facility] in [facility], respectively - UA benign on admission - may be secondary to anticholinergic medication (benztropine and fluphenazine) - patient has been spontaneously voiding - Bladder scan PRN Schizophrenia -Continue Fluphenazine -Continue Benztropine -Follows with outpatient psychiatry at the [facility] -given issues with falls and possible urinary retention - could consider med titration/switch if permissible. Anxiety/PTSD/Insomnia -Continue Effexor -Continue Trazodone 200mg qhs PRN -Patient continues to have PTSD and nightmares at night, does better with light in the room near an open door BPH -Continue Flomax (although this medication is on [facility] list) Dispo: Med/Surg - CM continues to work to find placement, looking into [place] FEN: HH soft bite sized DVT: Heparin Code: DNR/DNI; Daughter would want to be contacted to determine whether a trial of intubation would be wanted for declining respiratory status (2) Dementia: (3) Anxiety disorder: (4) PTSD (post-traumatic stress disorder): Admission and Anticipated Discharge Date Admission Date: May 10, 2020 Supervising Physician Co-Signing Physician Notes I personally examined the patient and verified all thompson points of history and exam, discussed case, and agree with decision making with Dr Wilkinson. no complaints vitals noted nad heent nc at mmm breathing unlabored no accessory muscles good effort skin no rashes no pallor or icterus dementia - no longer safe at home despite what had been very significant family efforts to keep him safe. medically stable once bed available, but not safe in home environment. placement has been difficult. still working on placement. otherwise as above Subjective Patient evaluated while seated at the edge of the bed. Noted that over all he was feeling well. He notes that he had been walking around a lot overnight, did not disclose a particular reason. Oriented to person and place, but when asked time stated that "I never know that." Denied chest pain, pressure, SOB, abdominal pain. Review of Systems Constitutional: no fever and no chills Respiratory: no cough, no dyspnea and no pain on inspiration Cardiovascular: no chest pain and no palpitations Gastrointestinal: no abdominal pain, no nausea and no vomiting Physical Exam Constitutional: + thin; no acute distress ENMT: external ear and nose normal, oropharynx normal Neck: trachea midline, no thyromegaly Respiratory: normal respiratory effort, lungs clear to auscultation Cardiovascular: RRR, no murmur, no edema Gastrointestinal (Abdomen): Inspection/Auscultation: abdomen normal to inspection and normal bowel sounds; abdomen not distended Percussion/Palpation: abdomen soft; abdomen nontender Neurologic: awake Psychiatric: Orientation: alert, oriented to person, oriented to place and cooperative; + not oriented to time Apperance: + disheveled Eye Contact: + fair eye contact Resident Activity Tracking Resident Involvement: Resident Care Provided Care Provided: Adult Hospital Medicine
[2020-05-23] MEDS: VENLAFAXINE HCL XR 75 MG CAPXR PO SCH (07:47)
[2020-05-23] MEDS: DOCUSATE SODIUM 100 MG CAP PO SCH ×2 (07:47→20:16)
[2020-05-23] MEDS: NICOTINE 14 MG/24 HR PATCH TD SCH (07:48)
[2020-05-23] MEDS: PANTOprazole 40 MG TAB PO SCH (07:48)
[2020-05-23] MEDS: BENZTROPINE MESYLATE 1 MG TAB PO SCH ×2 (07:48→20:16)
[2020-05-23] MEDS: CHOLECALCIFEROL 1,000 UNITS 25 MCG TAB PO SCH (07:48)
[2020-05-23] MEDS: TAMSULOSIN HCL 0.4 MG CAP PO SCH (07:48)
[2020-05-23] MEDS: MULTIVITAMIN TAB PO SCH (07:48)
[2020-05-23] MEDS: HEPARIN SOD 5,000 UNIT/0.5 ML VIAL SQ SCH ×2 (07:54→20:16)
[2020-05-23] MEDS: ACETAMINOPHEN 325 MG TAB PO PRN (15:48)
[2020-05-23] MEDS: MELATONIN 3 MG TAB PO PRN (22:44)
[2020-05-24] MEDS: traZODone HCL 100 MG TAB PO PRN ×2 (01:52→21:46)
--- NOTE | 2020-05-24 07:42 | Hospitalist Progress Note ---
Date of Service May 24, 2020 Assessment & Plan (1) Falls: Patient is a 74 year old male with PMHx with of dementia of uncertain etiology who was admitted for progressive weakness and subsequent falls. Due to his declining functional status, patient requires placement as home felt to be an unsafe option (per daughter). Case Management working to find appropriate facility. Fall -Suspect secondary to deconditioning/worsening dementia/med side effect (fluphenazine known to cause falls)/ multifactorial -head CT negative for acute bleed at [facility] one day prior to admission here -PT/OT ordered, recommending SNF placement -continue fall precautions -Case management continuing search for placement. Dementia - patient's daughter reported history of "short term memory loss" - patient does admit to a significant EtOH history (possibility alcohol dementia) - no obvious metabolic derangement (WBC, TSH, LFTs, Electrolytes, UA normal) - head imaging was not ordered on admission, however he had a head CT at [facility] hospital one day prior to his presentation here. Per review of records, it showed no evidence of acute bleed, but chronic vascular changes and white matter changes consistent with age and dementia. 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 - currently not on any pharmacotherapy such as Aricept or Namenda - Continue 1:1 as needed for impulsiveness/wandering Urinary Retention - Patient was not known to have been retaining previously, but was straight cathed for 7[address] in [facility], respectively - UA benign on admission - may be secondary to anticholinergic medication (benztropine and fluphenazine) - patient has been spontaneously voiding - Bladder scan PRN Schizophrenia -Continue Fluphenazine -Continue Benztropine -Follows with outpatient psychiatry at the [facility] -given issues with falls and possible urinary retention - could consider med titration/switch if permissible. Anxiety/PTSD/Insomnia -Continue Effexor -Continue Trazodone 200mg qhs PRN -Patient continues to have PTSD and nightmares at night, does better with light in the room near an open door BPH -Continue Flomax (although this medication is on [facility] list) Dispo: Med/Surg - CM continues to work to find placement, looking into [facility]: HH soft bite sized DVT: Heparin Code: DNR/DNI; Daughter would want to be contacted to determine whether a trial of intubation would be wanted for declining respiratory status (2) Dementia: (3) Anxiety disorder: (4) PTSD (post-traumatic stress disorder): Admission and Anticipated Discharge Date Admission Date: May 10, 2020 Supervising Physician Co-Signing Physician Notes I personally examined the patient and verified all thompson points of history and exam, discussed case, and agree with decision making with Dr Wilkinson. no complaints. nursing notes no problems today, although he is somewhat sleepy since he was up until about 5am vitals noted nad heent nc at breathing unlabored no accessory muscles good effort skin no rashes no pallor or icterus dementia - no longer safe at home despite what had been very significant family efforts to keep him safe. medically stable once bed available, but not safe in home environment. awaiting placement, case management working on options. otherwise as above Subjective Patient sleeping at time of examination. Easily arousable, but preferred to re turn to sleep rather than complying to exam. Review of Systems Review of Systems: Unobtainable due to reduced consciousness Physical Exam Constitutional: + thin; no acute distress ENMT: external ear and nose normal, oropharynx normal Neck: trachea midline, no thyromegaly Respiratory: normal respiratory effort, lungs clear to auscultation Cardiovascular: RRR, no murmur, no edema Gastrointestinal (Abdomen): Inspection/Auscultation: abdomen normal to inspection and normal bowel sounds Resident Activity Tracking Resident Involvement: Resident Care Provided Care Provided: Adult Hospital Medicine
[2020-05-24] MEDS: VENLAFAXINE HCL XR 75 MG CAPXR PO SCH (10:06)
[2020-05-24] MEDS: DOCUSATE SODIUM 100 MG CAP PO SCH ×2 (10:06→21:33)
[2020-05-24] MEDS: MULTIVITAMIN TAB PO SCH (10:06)
[2020-05-24] MEDS: NICOTINE 14 MG/24 HR PATCH TD SCH (10:06)
[2020-05-24] MEDS: TAMSULOSIN HCL 0.4 MG CAP PO SCH (10:06)
[2020-05-24] MEDS: CHOLECALCIFEROL 1,000 UNITS 25 MCG TAB PO SCH (10:06)
[2020-05-24] MEDS: PANTOprazole 40 MG TAB PO SCH (10:06)
[2020-05-24] MEDS: BENZTROPINE MESYLATE 1 MG TAB PO SCH ×2 (10:06→21:34)
[2020-05-24] MEDS: HEPARIN SOD 5,000 UNIT/0.5 ML VIAL SQ SCH ×2 (10:07→21:34)
--- NOTE | 2020-05-24 16:04 | Billing Data ---
Date of Service May 24, 2020 Coding Level of Care Code 43492 Subseq Hosp Care Lvl 1
[2020-05-25] MEDS: DOCUSATE SODIUM 100 MG CAP PO SCH ×2 (08:48→21:51)
[2020-05-25] MEDS: BENZTROPINE MESYLATE 1 MG TAB PO SCH ×2 (08:48→21:51)
[2020-05-25] MEDS: HEPARIN SOD 5,000 UNIT/0.5 ML VIAL SQ SCH ×2 (08:49→21:51)
[2020-05-25] MEDS: NICOTINE 14 MG/24 HR PATCH TD SCH (08:49)
[2020-05-25] MEDS: TAMSULOSIN HCL 0.4 MG CAP PO SCH (08:49)
[2020-05-25] MEDS: MULTIVITAMIN TAB PO SCH (08:49)
[2020-05-25] MEDS: PANTOprazole 40 MG TAB PO SCH (08:49)
[2020-05-25] MEDS: VENLAFAXINE HCL XR 75 MG CAPXR PO SCH (08:49)
[2020-05-25] MEDS: CHOLECALCIFEROL 1,000 UNITS 25 MCG TAB PO SCH (08:49)
--- NOTE | 2020-05-25 12:24 | Hospitalist Progress Note ---
Date of Service May 25, 2020 Assessment & Plan (1) Falls: Patient is a 74 year old male with PMHx with of dementia of uncertain etiology who was admitted for progressive weakness and subsequent falls. Due to his declining functional status, patient requires placement as home felt to be an unsafe option (per daughter). Case Management still working to find appropriate facility. Fall -Suspect secondary to deconditioning/worsening dementia/med side effect (fl uphenazine known to cause falls)/ multifactorial -head CT negative for acute bleed at [facility] one day prior to admission here -PT/OT ordered, recommending SNF placement -continue fall precautions -Case management continuing search for placement. Dementia - patient's daughter reported history of "short term memory loss" - patient does admit to a significant EtOH history (possibility alcohol dementia) - no obvious metabolic derangement (WBC, TSH, LFTs, Electrolytes, UA normal) - head imaging was not ordered on admission, however he had a head CT at [facility] hospital one day prior to his presentation here. Per review of records, it showed no evidence of acute bleed, but chronic vascular changes and white matter changes consistent with age and dementia. 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 - currently not on any pharmacotherapy such as Aricept or Namenda - Continue 1:1 as needed for impulsiveness/wandering Urinary Retention - Patient was not known to have been retaining previously, but was straight cathed for 708 and 100 cc at [place] in [facility], respectively - UA benign on admission - may be secondary to anticholinergic medication (benztropine and fluphenazine) - patient has been spontaneously voiding - Bladder scan PRN Schizophrenia -Continue Fluphenazine -Continue Benztropine -Follows with outpatient psychiatry at the [facility] -given issues with falls and possible urinary retention - could consider med titration/switch if permissible. Anxiety/PTSD/Insomnia -Continue Effexor -Continue Trazodone 200mg qhs PRN -Patient continues to have PTSD and nightmares at night, does better with light in the room near an open door BPH -Continue Flomax (although this medication is on [facility] list) Dispo: Med/Surg - CM continues to work to find placement, looking into [facility]: HH soft bite sized DVT: Heparin Code: DNR/DNI; Daughter would want to be contacted to determine whether a trial of intubation would be wanted for declining respiratory status (2) Dementia: (3) Anxiety disorder: (4) PTSD (post-traumatic stress disorder): Admission and Anticipated Discharge Date Admission Date: May 10, 2020 Supervising Physician Co-Signing Physician Notes Patient seen and examined independently of PGY-2 Dr. Barksdale. Agree with history, exam findings, assessment and plan of care. 74 year old male with history of dementia admitted for progressive weakness and falls. Previously living at home. Currently requiring one to one in the hospital. 1. Falls, secondary to deconditioning, dementia, ?med side effect of f luphenazine. PT/OT following. Fall precautions. Looking for placement. 2. Dementia. Significant ETOH history in the past. 3. Urinary retention with history of BPH. Is on anticholinergic meds. No issues so far here. Continue with home Flomax. Bladder scan PRN. 4. Schizophrenia. Followed by psych as an outpatient. Continue home fluphenazine and benztropine. 5. Anxiety, PTSD, insomnia. Continue home Effexor, trazodone. Dispo: awaiting available bed for placement. Needs locked memory unit. Appreciate onsite case manager work on this challenging placement issue. Subjective no acute events overnight. Eating well. Ambulating around room. No acute complaints. Review of Systems Review of Systems: All systems reviewed & are unremarkable except as noted in HPI & below Physical Exam Constitutional: well developed and well nourished; no acute distress Eyes: + anicteric sclerae ENMT: external ear and nose normal, oropharynx normal Neck: normal visual inspection and trachea midline Respiratory: normal respiratory effort, lungs clear to auscultation Cardiovascular: RRR, no murmur, no edema Heart Sounds: normal S1 and normal S2 Gastrointestinal (Abdomen): normal bowel sounds, soft, nontender, no hepatosplenomegaly Musculoskeletal: Shoulder: + AC joint abnormality (R side is separtaed. non- tender) Skin: no rashes, warm and dry Neurologic: moves all extremities and + confused Cranial Nerves: + hearing impairment Psychiatric: Orientation: alert Results & Data Results & Data ([facility]) Vital Signs (Past 12 Hours) Vital Signs Temp Pulse Resp BP Pulse Ox 05/25/20 12:19 36.7 C 93 H 20 106/73 97 Resident Activity Tracking Resident Involvement: Resident Care Provided Care Provided: Adult [facility] Medicine
[2020-05-26] MEDS: PANTOprazole 40 MG TAB PO SCH (07:51)
[2020-05-26] MEDS: BENZTROPINE MESYLATE 1 MG TAB PO SCH ×2 (07:51→21:07)
[2020-05-26] MEDS: CHOLECALCIFEROL 1,000 UNITS 25 MCG TAB PO SCH (07:51)
[2020-05-26] MEDS: MULTIVITAMIN TAB PO SCH (07:51)
[2020-05-26] MEDS: DOCUSATE SODIUM 100 MG CAP PO SCH ×2 (07:51→21:06)
[2020-05-26] MEDS: VENLAFAXINE HCL XR 75 MG CAPXR PO SCH (07:52)
[2020-05-26] MEDS: NICOTINE 14 MG/24 HR PATCH TD SCH (07:52)
[2020-05-26] MEDS: TAMSULOSIN HCL 0.4 MG CAP PO SCH (07:52)
[2020-05-26] MEDS: HEPARIN SOD 5,000 UNIT/0.5 ML VIAL SQ SCH ×3 (07:52→21:23)
--- NOTE | 2020-05-26 10:17 | Hospitalist Progress Note ---
Date of Service May 26, 2020 Assessment & Plan (1) Falls: Patient is a 74 year old male with PMHx with of dementia of uncertain etiology who was admitted for progressive weakness and subsequent falls. Due to his declining functional status, patient requires placement as home felt to be a n unsafe option (per daughter). Case Management still working to find appropriate facility - plans for discharge to [place] tomorrow 05/27. Patient will need COVID 19 test prior to discharge. Fall -Suspect secondary to deconditioning/worsening dementia/med side effect (fluphenazine known to cause falls)/ multifactorial -head CT negative for acute bleed at [facility] one day prior to admission here -PT/OT ordered, recommending SNF placement -continue fall precautions -Case management continuing search for placement. Dementia - patient's daughter reported history of "short term memory loss" - patient does admit to a significant EtOH history (possibility alcohol dementia) - no obvious metabolic derangement (WBC, TSH, LFTs, Electrolytes, UA normal) - head imaging was not ordered on admission, however he had a head CT at [facility] one day prior to his presentation here. Per review of records, it showed no evidence of acute bleed, but chronic vascular changes and white matter changes consistent with age and dementia. 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 - currently not on any pharmacotherapy such as Aricept or Namenda - Continue 1:1 as needed for impulsiveness/wandering Urinary Retention - Patient was not known to have been retaining previously, but was straight cathed for 708 and 100 cc at [facility] in [facility], respectively - UA benign on admission - may be secondary to anticholinergic medication (benztropine and fluphenazine) - patient has been spontaneously voiding - Bladder scan PRN Schizophrenia -Continue Fluphenazine -Continue Benztropine -Follows with outpatient psychiatry at the [facility] -given issues with falls and possible urinary retention - could consider med titration/switch if permissible. Anxiety/PTSD/Insomnia -Continue Effexor -Continue Trazodone 200mg qhs PRN -Patient continues to have PTSD and nightmares at night, does better with light in the room near an open door BPH -Continue Flomax (although this medication is on [facility] list) Dispo: Med/Surg - CM continues to work to find placement, anticipate d/c to [place] 05/27 FEN: HH soft bite sized DVT: Heparin Code: DNR/DNI; Daughter would want to be contacted to determine whether a trial of intubation would be wanted for declining respiratory status (2) Dementia: (3) Anxiety disorder: (4) PTSD (post-traumatic stress disorder): Admission and Anticipated Discharge Date Admission Date: May 10, 2020 Supervising Physician Co-Signing Physician Notes Patient seen and examined independently of PGY-2 Dr. Barksdale. Agree with history, exam findings, assessment and plan of care. 74 year old male with history of dementia admitted for progressive weakness and falls. Previously living at home. Currently requiring one to one in the hospital. 1. Falls, secondary to deconditioning, dementia. PT/OT following. Fall precautions. 2. Dementia. Significant ETOH history in the past. 3. Urinary retention with history of BPH. Is on anticholinergic meds. No issues so far here. Continue with home Flomax. Bladder scan PRN. 4. Schizophrenia. Followed by psych as an outpatient. Continue home fluphenazine and benztropine. 5. Anxiety, PTSD, insomnia. Continue home Effexor, trazodone. Dispo: Will be able to discharge to [facility] tomorrow. Daughter will be providing transportation at 11am. COVID swab obtained. [facility]. Subjective no acute events overnight. Eating well. Ambulating the hallways with nursing. No acute complaints. Review of Systems Review of Systems: All systems reviewed & are unremarkable except as noted in HPI & below Physical Exam Constitutional: well developed and well nourished; no acute distress Eyes: + anicteric sclerae ENMT: external ear and nose normal, oropharynx normal Neck: normal visual inspection and trachea midline Musculoskeletal: Shoulder: + AC joint abnormality (R side is separtaed. non- tender) Skin: no rashes, warm and dry Neurologic: moves all extremities and + confused Cranial Nerves: + hearing impairment Psychiatric: Orientation: alert Results & Data Results & Data ([facility]) Vital Signs (Past 12 Hours) Vital Signs Temp Pulse Resp BP BP Pulse Ox 05/26/20 08:20 36.4 C L 05/26/20 07:27 99 H 30 H 128/69 95 05/25/20 23:50 36.5 C 73 16 155/71 H 99 Resident Activity Tracking Resident Involvement: Resident Care Provided Care Provided: Adult Hospital Medicine
[2020-05-26] MEDS: traZODone HCL 100 MG TAB PO PRN (23:02)
--- NOTE | 2020-05-27 06:40 | Discharge Summary ---
Date of Service May 27, 2020 Admission HPI Per Admitting Provider Richy Is a 74-year-old male with a past medical history of COPD, tobacco abuse, PTSD, asthma/bronchitis, COPD, duodenal ulcer, and esophagitis with GERD who presents for weakness and falls. Per report patient is cared for by his daughter and normally has a slow, shaky gait with dragging feet but does not usually fall. In the last 24 hours he has fallen 3 times. He was seen at [facility] 1 day ago and had a CThead, UA, CBC, BMP which were unremarkable. X-rays of the pelvis did not show any signs of fracture. He was discharged home, but has had an additional fall in the last day and after being seen by urgent care was referred to the emergency department. [place] records review results noted as below. Evaluation about any showed blood pressure of 142/71 with otherwise normal vitals, no leukocytosis, hemoglobin 14.1, no gross electrolyte derangements, glucose of 100, troponin negative, TSH normal, CK normal, ammonia normal, no transaminitis, magnesium normal, and negative urine.Urine retention noted by ED provider with bladder scan Patient's history is limited by dementia. He is oriented to first name, only. Does not recognize his daughter in the room, is pleasant but unaware of place and date. History is collected mostly from his daughter. She reports that he is normally very energetic, with good strength and walks around frequently. He has had 3 falls in the last 24 hours. He was seen by [facility] as above. She has noticed an associated increase in right-sided shaking/tremors of the arm and slightly in the leg. She also notes he has had chronically worsening dementia over the last month. She has not noticed any fevers, chills, sweats, cough, shortness of breath, difficulty breathing, indication of chest pain, diarrhea, constipation, abdominal pain, or loss of consciousness. He has not had any skin changes or rash. No change in vision or hearing. She reports he will sometimes "blackout ", which she means by this is that he has episodes where he will stare and appeared confused, but does not lose consciousness. These tend to happen when he stands and are associated with loss of balance. He has not had blood pressure problems previously. After being evaluated in [place] and having an additional fall they were seen in the urgent care before being referred to the emergency department. His daughter is a nurse and reports that she understands that this may be a chronic process related to his dementia, and they are working on getting him into a total care facility with a dementia rasmussen and [facility]. He has had several CTs, including one at the [place] as noted above. He is not able to get MRIs due to a non-MRI compatible artificial eardrum. Reports she has not noticed a change in urinary symptoms, but notes that her father drinks 6 to 820 ounce glasses of water a day. She has not noticed a problem with urinary retention, but he has been straight cathed both at [place] and here for 700 & 800 cc respectively. He was noted to have some BPH in the past with an elevated PSA but due to his age and [facility] status they do not pursue further work-up, and have been monitoring. Not had any painful urination or blood in the urine. Medical history: Reviewed. Of note has a history of schizophrenia for many years, has had medications adjusted by outpatient [place] psychiatrist and have worked to find a balance of fluphenazine and benztropine that control his symptoms while also minimizing EPS side effects. Therefore he has done very well on his current balance. Medications: Reviewed Allergies: No known drug or food allergies Social history: Living situation with daughter and son-in-law, home has door alarms in a locked acute events. Smokes 10 to 12 cigarettes/day, down from 2 packs/day for "ever ". No alcohol use, no recreational drug use. CODE STATUS: DNR/DNI, daughter would want to be contacted and may be open to trial of intubation for declining respiratory status family history: Patient is adopted, does not know his family history Family history: Patient is adopted, unknown family history ____ [facility] review Right hip / view: Mild right hip osteoarthritis no acute findings. 05/04/2020 CThead: Cerebral and cerebellar atrophy. No evidence of bony injury, stroke, or intracranial bleed. Diffuse bilateral white matter changes appreciated. 05/04/2020 CBC: No leukocytosis, hemoglobin 14, platelet 153 UA: [place], no leukocyte esterase or bacteria Troponin negative, lipase negative, ammonia normal Admission Exam Per Admitting Provider General: Alert. Oriented to firs tname. Not oriented to place or year. NAD. Cooperative. HEENT: Atraumatic, normocephalic. PERLAA. Visual acuity and hearing grossly intact. No nystagmus. Pulm: CTAB A&P. -wheezes, -rales, -rhonchi. Symmetrical chest rise. No increase work of breathing. No respiratory distress. Cardiac: RRR, -mrg. Radial pulses intact and symmetrical. Abdominal: Nontender, nondistended, soft. BS present. 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 Mild R sided tremor in arms. Sensation to soft touch intact in hands and feet. Exam somewhat limited by cognitive status. Principal Diagnosis Advanced Dementia Discharge Exam Constitutional well developed and well nourished; no acute distress Eyes + anicteric sclerae ENMT external ear and nose normal, oropharynx normal Neck normal visual inspection and trachea midline Respiratory normal respiratory effort, lungs clear to auscultation Cardiovascular RRR, no murmur, no edema Heart Sounds: normal S1 and normal S2 Musculoskeletal Shoulder: + AC joint abnormality (R side is separtaed. non-tender) Skin no rashes, warm and dry Neurologic Cranial Nerves: + hearing impairment Discharge Data Allergies Allergy/AdvReac Type Severity Reaction Status Date / Time No Known Allergies Allergy Verified 05/05/20 18:32 Consultations 05/05/20 20:50 ED Decision to Admit Stat 05/05/20 21:17 Consult Case Management - Discharge Planning Routine Hospital Course (1) Falls: Patient is a 74 year old male with PMHx with of dementia of uncertain etiology who was admitted for progressive weakness and subsequent falls. Due to his declining functional status, patient requires placement as home felt to be an unsafe option (per daughter). Case Management still working to find appropriate facility - plans for discharge to [place] 05/27/20. Patient was tested for COVID 19 within 24 hours of hospital discharge and was negative. Fall -Suspect secondary to deconditioning/worsening dementia/med side effect (fluphenazine known to cause falls)/ multifactorial -head CT negative for acute bleed at [facility] one day prior to admission here -PT/OT ordered, recommending SNF placement -continue fall precautions Dementia - patient's daughter reported history of "short term memory loss" - patient does admit to a significant EtOH history (possibility alcohol dementia) - no obvious metabolic derangement (WBC, TSH, LFTs, Electrolytes, UA normal) - head imaging was not ordered on admission, however he had a head CT at [facility] one day prior to his presentation here. Per review of records, it showed no evidence of acute bleed, but chronic vascular changes and white matter changes consistent with age and dementia. 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 - currently not on any pharmacotherapy such as Aricept or Namenda Urinary Retention - Patient was not known to have been retaining previously, but was straight cathed for 708 and 100 cc at [place] in [facility], respectively - UA benign on admission - may be secondary to anticholinergic medication (benztropine and fluphenazine) - patient has been spontaneously voiding - Bladder scan PRN Schizophrenia -Continue Fluphenazine -Continue Benztropine -Follows with outpatient psychiatry at the [place] -given issues with falls and possible urinary retention - could consider med titration/switch if permissible. Anxiety/PTSD/Insomnia -Continue Effexor -Continue Trazodone 200mg qhs PRN -Patient continues to have PTSD and nightmares at night, does better with light in the room near an open door BPH -Continue Flomax (although this medication is on [facility] list) (2) Dementia: (3) Anxiety disorder: (4) PTSD (post-traumatic stress disorder): Total Time Total Time Spent Total Time Spent (In Minutes): see attending attestation Discharge Plan Discharge Items Patient Disposition: Transfer [facility] Fac Reason For Visit: Falls Discharge Diagnosis: Fall Condition on Discharge: Good Activity: Resume your previous activity Non-emergency contact: Primary Care Provider Call non-emergency contact if: your symptoms worsen Follow-up/Referrals: PCP,NO [Primary Care Provider] - Diet: Heart Healthy Addtl Attending Provider Instructions: Patient is a 74 year old male with PMHx with of dementia of uncertain etiology who was admitted for progressive weakness and subsequent falls. Due to his declining functional status, patient requires placement as home felt to be an unsafe option (per daughter). Case Management still working to find appropriate facility - plans for discharge to [place] 05/27/20. Patient was tested for COVID 19 on the day of discharge and was negative. Fall -Suspect secondary to deconditioning/worsening dementia/med side effect (fluphenazine known to cause falls) -head CT negative for acute bleed at [facility] one day prior to admission here -PT/OT ordered, recommending SNF placement -continue fall precautions Dementia - patient's daughter reported history of "short term memory loss" - patient does admit to a significant EtOH history (possibility alcohol dementia) - no obvious metabolic derangement (WBC, TSH, LFTs, Electrolytes, UA normal) - head imaging was not ordered on admission, however he had a head CT at [facility] hospital one day prior to his presentation here. It showed no evidence of acute bleed, but chronic vascular changes and white matter changes consistent with age and dementia. Patient is not able to have MRIs due to an artificial eardrum which is not MRI compatible - currently not on any pharmacotherapy such as Aricept or Namenda - at times during hospital stay, patient required 1:1 for impulsiveness/wandering Urinary Retention - Patient was not known to have been retaining previously, was straight cathed for 708 and 100 cc at [place] in [facility] respectively - UA benign - may be secondary to anticholinergic medication (benztropine and fluphenazine) Schizophrenia -Continue Fluphenazine -Continue Benztropine -Follows with outpatient psychiatry at the [place] Anxiety/PTSD/Insomnia -Continue Effexor -Continue Trazodone 200mg qhs PRN -does better with light in the room near an open door (PTSD) BPH -Continue Flomax (although this is on [facility] List) Pending Studies at Discharge: No Stand-Alone Forms: My [facility] Skilled Items Patient informed of condition?: Yes DNR: Yes Discharge Level of Care: Skilled Communicable Disease: No Discharge Prognosis: Stable Lines: None Urinary Catheter: No Medications and DC Order Prescriptions: New acetaminophen 325 mg Tablet 650 mg PO Q4H PRN (Reason: fever or pain) 10 Days Qty: 10 RF: 0 venlafaxine 75 mg Capsule,Extended Release 24hr 225 mg PO QAM 10 Days Qty: 30 RF: 0 fluphenazine HCl 2.5 mg Tablet 10 mg PO BID 10 Days Qty: 80 RF: 0 tamsulosin 0.4 mg Capsule 0.4 mg PO QAM 10 Days Qty: 10 RF: 0 trazodone 100 mg Tablet 200 mg PO HS PRN (Reason: insomnia) 10 Days Qty: 10 RF: 0 benztropine 1 mg Tablet 2 mg PO BID 10 Days Qty: 40 RF: 0 docusate sodium 100 mg Capsule 100 mg PO BID 10 Days Qty: 20 RF: 0 nicotine 7 mg/24 hr Patch 24 Hour 14 mg transdermal QAM 10 Days Qty: 10 RF: 0 multivitamin [Daily-Cori] Tablet 1 tab PO QAM 10 Days Qty: 10 RF: 0 polyethylene glycol 3350 [Miralax] 17 gram Powder In Packet 17 g PO DAILY PRN (Reason: constipation) 10 Days Qty: 14 RF: 0 melatonin 3 mg Tablet 3 mg PO HS 10 Days Qty: 10 RF: 0 pantoprazole 40 mg Tablet,Delayed Release (Dr/Ec) 40 mg PO QAM 10 Days Qty: 10 RF: 0 cholecalciferol (vitamin D3) 25 mcg (1,000 unit) Capsule 2,000 unit PO QAM 10 Days Qty: 10 RF: 0 Continued benztropine 2 mg Tablet 2 mg PO BID Qty: 20 RF: 0 Discontinued multivitamin Tablet 1 tab PO QAM RF: 0 fluphenazine HCl 10 mg Tablet 10 mg PO BID RF: 0 trazodone 100 mg Tablet 200 mg PO HS PRN (Reason: Sleep) RF: 0 venlafaxine 225 mg Tablet Extended Release 24hr 225 mg PO QAM RF: 0 cholecalciferol (vitamin D3) [Vitamin D3] 25 mcg (1,000 unit) Tablet,Chewable 2,000 unit PO QAM RF: 0 acetaminophen 325 mg Tablet 650 mg PO QID PRN (Reason: Fever Or Pain) RF: 0 Discharge Orders: Discharge Order (Routine); Ordered 05/27/20 Ordered By: Cher Barksdale Admission Data Admit Date/Time: 05/10/20 09:08 Attending Provider: Flash Grey Admit Provider: Eric Peterson Primary Care Provider: PCP,NO Other Providers: Jovon Rabago ; Sagar Nieto ; Luisa Sam ; Anatoliy Gonzales Other Interventions: Discharge Summary Assessment (RN) Last Done: 05/27/20 07:46 Supervising Physician Co-Signing Physician Notes Patient seen and examined with PGY-2 Dr. Barksdale. Agree with history, exam findings, assessment and plan of care. 74 year old male with history of dementia admitted for progressive weakness and falls. Previously living at home. Currently requiring one to one in the hospital. No complaints. He is being discharged to [facility] today. Daughter will be providing transportation at 11am. COVID swab obtained. Prescriptions sent to [facility]. I personally spent 35 minutes discharge planning for this patient. Resident Activity Tracking Resident Involvement: Resident Care Provided Care Provided: Adult Hospital Medicine
[2020-05-27] MEDS: DOCUSATE SODIUM 100 MG CAP PO SCH (08:58)
[2020-05-27] MEDS: HEPARIN SOD 5,000 UNIT/0.5 ML VIAL SQ SCH (08:58)
[2020-05-27] MEDS: BENZTROPINE MESYLATE 1 MG TAB PO SCH (08:58)
[2020-05-27] MEDS: VENLAFAXINE HCL XR 75 MG CAPXR PO SCH (08:59)
[2020-05-27] MEDS: NICOTINE 14 MG/24 HR PATCH TD SCH (08:59)
[2020-05-27] MEDS: CHOLECALCIFEROL 1,000 UNITS 25 MCG TAB PO SCH (08:59)
[2020-05-27] MEDS: PANTOprazole 40 MG TAB PO SCH (08:59)
[2020-05-27] MEDS: MULTIVITAMIN TAB PO SCH (08:59)
[2020-05-27] MEDS: TAMSULOSIN HCL 0.4 MG CAP PO SCH (08:59)
== END 2020-05-27 11:01 | disposition home or self-care (01) | DRG 884 ==
LOC: ED 14:23 → 3N 14:23 → SUATTDRO 20:18 → 3N 21:03 → SUATTDRO 05-10 09:08 → 3N 05-10 12:37

== ENCOUNTER 2021-05-17 12:32 | Inpatient (IN) ==
--- NOTE | 2021-05-17 13:25 | Emergency Department Note ---
Impression & Plan Multiple falls, Dislocation of shoulder, left, closed, Hill Sachs deformity, left, Cellulitis of foot, right, Dementia ED Provider Note CHIEF COMPLAINT: Unwitnessed fall, found down HISTORY OF PRESENT ILLNESS: Richy Vaughan is a 75 year old male with history of dementia who presents to the Emergency Department for evaluation after suffering an unwitnessed fall and being found down on the floor by staff at [facility] approximately 30 minutes later. Per daughter, the patient appeared to have struck his head and also injured his left arm. No reported loss of consciousness. EMS was called and the patient was brought to the ED for further evaluation. Currently, he does not appear to be in any acute distress but he is unable to answer additional questions due to history of dementia. He only complains of pain to his upper right arm where there is an area of ecchymosis, which daughter states he previously fractured during a fall a few weeks prior. Left shoulder also appears to be deformed but patient does not complain of pain. The patient is also noted to have an abrasion over his left knee but does not complain of pain to this area and continues to move his legs without apparent pain or difficulty. He also has erythema and edema to his right foot and is currently being treated with Keflex 500 mg BID for a cellulitic infection (day 4 of 10). Daughter does state that the patient has fallen 8-9 times over the past month and she is currently looking into getting him into a facility that is able to provide 24/7 care. She states that he has been gradually declining and has become a much greater fall risk due to his history of dementia. Daughter otherwise denies recent reports of fevers/chills, cough, complaints of chest pain, abdominal pain, nausea, vomiting, diarrhea, urinary symptoms or any other acute problems. REVIEW OF SYSTEMS: 10 systems were reviewed and were negative unless otherwise stated in HPI as above PHYSICAL EXAM: VITALS: Vitals are noted on the nurse's note and reviewed by myself. Vital signs stable. General: Resting in bed, no acute distress HEENT: Normocephalic/atraumatic, PERRL, EOMI, mucous membranes moist, oropharynx clear Neck: No mid-line cervical tenderness Resp: Good inspiratory effort on room air, lung sounds clear bilaterally CV: Regular rate and rhythm, peripheral pulses palpated Back: No midline tenderness to the thoracic spine, no midline tenderness to the lumbar spine, no obvious step-offs or deformities Abd: Soft, non-distended, non-tender Pelvis: Non-tender, stable to AP compression Integ/MSK: RUE: Ecchymosis and edema over the humerus with tenderness to palpation. Moving hand and fingers but ROM of the shoulder and elbow limited secondary to pain. Radial pulse and sensation intact. LUE: Obvious d islocation/deformity of the left shoulder, denies tenderness to palpation. Radial pulse and sensation remain intact. Following reduction, ROM intact without complaints of pain, sensation and radial pulse intact. RLE: Small area of ecchymosis to the right lateral thigh without tenderness to palpation, ROM remains intact without apparent pain or difficulty. Erythema and edema over the proximal 1st metatarsal with additional erythema and mild edema over the dorsal aspect of the forefoot. Warm and indicates tenderness to palpation. D/p pulse and sensation intact. LLE: Superficial abrasion to the left knee without surrounding ecchymosis or edema. No tenderness to palpation, ROM remains intact. Sensation and d/p pulse intact Neuro: Awake, answers "yes" and "no", otherwise not oriented to person, time or place Differential diagnosis includes intracranial injury, cervical spine injury, intrathoracic injury, intra-abdominal injury, musculoskeletal injury, infectious process among others were considered. EMERGENCY DEPARTMENT COURSE: Physical exam and history were performed. Nursing triage notes, EMR, and medication list were personally reviewed. Vital signs were reviewed and were stable. He is afebrile at 36.7C, maintaining oxygen saturations at 93% on room air. BP stable 136/65 with regular pulse rate 69 bpm. EKG was obtained and reviewed by myself as below. This is with normal sinus rhythm with sinus arrhythmia at 75 bpm. No ectopy or concerns for acute ischemic change. Patient appears to have suffered an unwitnessed fall and was found down on the floor by staff at [facility] approximately 30 minutes later. Upon arrival, he was not in any acute distress, however he is a poor historian secondary to his history of dementia. Daughter (SKINNY) at bedside provided history as above. On exam, he was noted to have a deformity/dislocation to his left shoulder but did not complain of pain here. He did indicate tenderness to palpation over his right upper arm which he had previously fractured during her fall a few weeks ago. See additional exam as above. As the fall was unwitnessed and the patient was unable to answer specific questions, I did feel that it was necessary to obtain CAT scans to evaluate for additional acute traumatic injuries. He should also undergo work-up for acute infectious process as this could lead to increased weakness and subsequently frequent falls. Of note, he is currently being treated with Keflex for a cellulitic infection to his right foot. Daughter did agree to this work-up. Patient was given a dose of Tylenol 1000 mg for pain. IV access was established, labs were obtained and reviewed by myself as below. Of note, he did not have a leukocytosis with a WBC of 6.44. Mild anemia with hemoglobin of 13.2. Electrolytes were within normal limits. Renal indices stable. LFTs nondiagnostic. Troponin not elevated at <0.015. He did have an elevated ESR at 29 and CRP at 2.53 consistent with inflammation, possibly from cellulitis vs recent trauma. Lactate not elevated at 1.6. UA was obtained and was not indicative of acute infection. CAT scans of the head, neck, chest, abdomen, pelvis, thoracic and lumbar spine as well as x-rays of the left shoulder, bilateral humerus and right foot were obtained and reviewed by radiologist and myself as below. Of note, CAT scan of the head, C/T/L spine were negative for acute traumatic injuries. CT of the chest did show a subcoracoid anteroinferior left glenohumeral dislocation with Hill-Sachs injury. Small associated left glenohumeral joint effusion. There was also a subacute comminuted fracture of the proximal right humerus with minimal displacement. Healing subacute bilateral rib fractures. Otherwise, negative for additional acute traumatic injuries. Foot x-ray did show degenerative changes and soft tissue swelling of the 1st MTP but no acute osseous pathology. Not concerning for osteomyelitis. Upon reevaluation, the patient was still resting comfortably. I discussed the above findings with my attending, Dr. Burgos, as well as the patient's daughter at bedside. She agreed for shoulder reduction at bedside. I did assist Dr. Burgos with shoulder reduction using manual traction at bedside. The patient tolerated this procedure well without need for anesthesia or additional medications. Post-reduction films did confirm anatomical alignment. After discussion with the patient's daughter, she had concerns regarding disposition due to the patient's gradual decline with multiple falls and was concerned that he will continue to fall without additional help. Case management spoke with her and she voiced interest in getting the patient set up with Hospice at the [facility]. Unfortunately, this will not be able to be set up today. The [facility] Hospitalist group was therefore contacted and Dr. Danielson agreed to evaluate the patient. Daughter verbalized her understanding and agreement with this treatment plan. The chart was completed utilizing [employer] Speech Voice Recognition Software. Grammatical errors, random word insertions, pronoun errors, and incomplete sentences are an occasional consequence of this system due to software limitations, ambient noise, and hardware issues. Any formal questions or concerns about the content, text, or information contained within the body of this dictation should be directly addressed to the provider for clarification. Past Med/Surg History Medical History Acute urinary retention COPD (chronic obstructive pulmonary disease) Dementia Duodenal ulcer Elevated CK-MB level Esophageal reflux Esophagitis PTSD (post-traumatic stress disorder) Weakness Surgical History No pertinent past surgical history Social History Smoking Status: Former smoker Cigarettes Per Day: 10; Second Hand Exposure: No; Hx Alcohol Use: No Hx Substance Use: No Preferred Language: Amharic Communication Ability: Effective Communication Ability Comment: unsure of intellectual ability, Hx of dementia Adult Literacy Instructor Required: No Beliefs That Will Affect Care: None marital status: / Current Living Situation: Personal Care Facility Current Living Situation Comment: lives with daughter and son in law Other Information That Helps Us Care for You: No Feels Safe at Home: Declines to Answer Assistive Devices: None Allergies Allergies Allergy/AdvReac Type Severity Reaction Status Date / Time No Known Allergies Allergy Verified 05/17/21 15:58 Home Meds Home Medications Medication Instructions Recorded Confirmed cetirizine 10 mg tablet 10 mg PO QAM 11/02/20 05/17/21 docusate sodium 100 mg capsule 100 mg PO QAM 11/02/20 05/17/21 fluphenazine HCl 10 mg tablet 10 mg PO BID 11/02/20 05/17/21 multivitamin 1 tab PO QAM 11/02/20 05/17/21 venlafaxine 75 mg capsule,extended 225 mg PO QAM 11/02/20 05/17/21 release 24 hr acetaminophen 500 mg tablet 1,000 mg PO Q6H PRN MDD 6 TABS 05/17/21 05/17/21 cephalexin 500 mg capsule 500 mg PO BID 05/17/21 05/17/21 cholecalciferol (vitamin D3) 125 125 mcg PO DAILY 05/17/21 05/17/21 mcg (5,000 unit) capsule Previous Rx's Medication Instructions Recorded benztropine 2 mg tablet 2 mg PO BID #20 tab 05/26/20 Results & Data (ED) Vital Signs Vital Signs - 24 hr 05/17/21 12:42 05/17/21 12:53 05/17/21 15:05 Temperature 36.7 C Temperature Source Oral Pulse Rate [Right Finger] 69 100 H Pulse Rhythm [Right Finger] Respiratory Rate 24 22 Respiratory Effort / Characteristics Non-Labored Spontaneous Non-Labored Spontaneous Respiratory Depth Normal Normal Respiratory Pattern Regular Blood Pressure [Right Calf] 136/65 118/73 Blood Pressure Mean [Right Calf] 88 88 Blood Pressure Position [Right Calf] Sitting Sitting Pulse Oximetry 93 93 Oxygen Delivery Method Room Air Room Air Sepsis Recent Fever Within 48 Hours No Sepsis New/Unexplained Change in Mental Status No Sepsis Action Taken by Nursing No Action Required 05/17/21 17:17 05/17/21 18:00 05/17/21 19:10 Temperature Temperature Source Pulse Rate [Right Finger] 79 76 67 Pulse Rhythm [Right Finger] Regular Respiratory Rate 22 20 20 Respiratory Effort / Characteristics Non-Labored Spontaneous Non-Labored Spontaneous Respiratory Depth Normal Normal Respiratory Pattern Regular Blood Pressure [Right Calf] 117/57 L 135/55 L 123/86 Blood Pressure Mean [Right Calf] 77 81 98 Blood Pressure Position [Right Calf] Lying Lying Pulse Oximetry 95 96 96 Oxygen Delivery Method Room Air Room Air Room Air Sepsis Recent Fever Within 48 Hours Sepsis New/Unexplained Change in Mental Status Sepsis Action Taken by Nursing Laboratory Data Result diagrams: 05/17/21 13:38 05/17/21 13:38 Lab Results 05/17/21 05/17/21 05/17/21 Range/Units 13:38 13:38 13:38 WBC 6.44 (4.8-10.8) K/uL RBC 4.16 L (4.7-6.1) M/uL Hgb 13.2 L (14.0-18.0) g/dL Hct 39.3 L (42-52) % MCV 94.5 (80-100) fL MCH 31.7 (25-34) pg MCHC 33.6 (32-36) g/dL RDW Std Deviation 43.9 (36.4-46.3) fL RDW Coeff of Yvette 12.8 (11.5-14.5) % Plt Count 158 (130-400) K/uL MPV 11.9 H (7.4-10.4) fL Immature Gran % (Auto) 0.2 % Neut % (Auto) 73.1 % Lymph % (Auto) 16.9 % [place] % (Auto) 8.7 % Eos % (Auto) 0.9 % Baso % (Auto) 0.2 % Neut # (Auto) 4.71 (1.4-6.5) K/uL Lymph # (Auto) 1.09 L (1.2-3.4) K/uL [place] # (Auto) 0.56 (0.11-0.59) K/uL Eos # (Auto) 0.06 (0-0.5) K/uL Baso # (Auto) 0.01 (0-0.2) K/uL Immature Gran # (Auto) 0.01 (0.00-0.02) K/uL ESR 29 H (0-20) mm/hr Sodium (136-145) mmol/L Potassium (3.5-5.1) mmol/L Chloride (98-107) mmol/L Carbon Dioxide (21-32) mmol/L Anion Gap (3-11) BUN (7-18) mg/dl Creatinine (0.6-1.4) mg/dl Est Cr Clr Drug Dosing ml/min Est GFR ( Amer) ml/min Est GFR (Non-Af Amer) ml/min BUN/Creatinine Ratio (10-20) Glucose (70-99) mg/dl Lactate 1.6 (0.4-2.0) mmol/L Uric Acid (2.6-7.2) mg/dl Calcium (8.5-10.1) mg/dl Total Bilirubin (0.2-1) mg/dl AST (15-37) U/L ALT (12-78) U/L Alkaline Phosphatase (45-117) U/L Troponin I (0-0.045) ng/ml C-Reactive Protein (0-0.29) mg/dl Total Protein (6.4-8.2) gm/dl Albumin (3.4-5.0) gm/dl Globulin (2.5-4.0) gm/dl Albumin/Globulin Ratio (0.9-2) Urine Color Urine Appearance (Clear) Urine pH (4.5-7.5) Ur Specific [place] (1.000-1.030) Urine Protein (Negative) Urine Glucose (UA) (Negative) Urine Ketones (Negative) Urine Blood (Negative) Urine Nitrite (Negative) Urine Bilirubin (Negative) Urine Urobilinogen (Negative) Ur Leukocyte Esterase (Negative) SARS-CoV-2, RNA, NAAT (NEGATIVE) 05/17/21 05/17/21 05/17/21 Range/Units 13:38 13:38 15:21 WBC (4.8-10.8) K/uL RBC (4.7-6.1) M/uL Hgb (14.0-18.0) g/dL Hct (42-52) % MCV (80-100) fL MCH (25-34) pg MCHC (32-36) g/dL RDW Std Deviation (36.4-46.3) fL RDW Coeff of Yvette (11.5-14.5) % Plt Count (130-400) K/uL MPV (7.4-10.4) fL Immature Gran % (Auto) % Neut % (Auto) % Lymph % (Auto) % [place] % (Auto) % Eos % (Auto) % Baso % (Auto) % Neut # (Auto) (1.4-6.5) K/uL Lymph # (Auto) (1.2-3.4) K/uL [place] # (Auto) (0.11-0.59) K/uL Eos # (Auto) (0-0.5) K/uL Baso # (Auto) (0-0.2) K/uL Immature Gran # (Auto) (0.00-0.02) K/uL ESR (0-20) mm/hr Sodium 141 (136-145) mmol/L Potassium 4.1 (3.5-5.1) mmol/L Chloride 109 H (98-107) mmol/L Carbon Dioxide 29 (21-32) mmol/L Anion Gap 3.0 (3-11) BUN 12 (7-18) mg/dl Creatinine 0.82 (0.6-1.4) mg/dl Est Cr Clr Drug Dosing 64.2 ml/min Est GFR ( Amer) 99.6 ml/min Est GFR (Non-Af Amer) 85.9 ml/min BUN/Creatinine Ratio 14.8 (10-20) Glucose 113 H (70-99) mg/dl Lactate (0.4-2.0) mmol/L Uric Acid 5.2 (2.6-7.2) mg/dl Calcium 9.5 (8.5-10.1) mg/dl Total Bilirubin 0.4 (0.2-1) mg/dl AST 23 (15-37) U/L ALT 28 (12-78) U/L Alkaline Phosphatase 146 H (45-117) U/L Troponin I < 0.015 (0-0.045) ng/ml C-Reactive Protein 2.53 H (0-0.29) mg/dl Total Protein 7.1 (6.4-8.2) gm/dl Albumin 2.9 L (3.4-5.0) gm/dl Globulin 4.2 H (2.5-4.0) gm/dl Albumin/Globulin Ratio 0.7 L (0.9-2) Urine Color Yellow Urine Appearance Clear (Clear) Urine pH 7.0 (4.5-7.5) Ur Specific [place] 1.015 (1.000-1.030) Urine Protein Negative (Negative) Urine Glucose (UA) Negative (Negative) Urine Ketones Negative (Negative) Urine Blood Negative (Negative) Urine Nitrite Negative (Negative) Urine Bilirubin Negative (Negative) Urine Urobilinogen Negative (Negative) Ur Leukocyte Esterase Negative (Negative) SARS-CoV-2, RNA, NAAT (NEGATIVE) 05/17/21 Range/Units 18:18 WBC (4.8-10.8) K/uL RBC (4.7-6.1) M/uL Hgb (14.0-18.0) g/dL Hct (42-52) % MCV (80-100) fL MCH (25-34) pg MCHC (32-36) g/dL RDW Std Deviation (36.4-46.3) fL RDW Coeff of Yvette (11.5-14.5) % Plt Count (130-400) K/uL MPV (7.4-10.4) fL Immature Gran % (Auto) % Neut % (Auto) % Lymph % (Auto) % [place] % (Auto) % Eos % (Auto) % Baso % (Auto) % Neut # (Auto) (1.4-6.5) K/uL Lymph # (Auto) (1.2-3.4) K/uL [place] # (Auto) (0.11-0.59) K/uL Eos # (Auto) (0-0.5) K/uL Baso # (Auto) (0-0.2) K/uL Immature Gran # (Auto) (0.00-0.02) K/uL ESR (0-20) mm/hr Sodium (136-145) mmol/L Potassium (3.5-5.1) mmol/L Chloride (98-107) mmol/L Carbon Dioxide (21-32) mmol/L Anion Gap (3-11) BUN (7-18) mg/dl Creatinine (0.6-1.4) mg/dl Est Cr Clr Drug Dosing ml/min Est GFR ( Amer) ml/min Est GFR (Non-Af Amer) ml/min BUN/Creatinine Ratio (10-20) Glucose (70-99) mg/dl Lactate (0.4-2.0) mmol/L Uric Acid (2.6-7.2) mg/dl Calcium (8.5-10.1) mg/dl Total Bilirubin (0.2-1) mg/dl AST (15-37) U/L ALT (12-78) U/L Alkaline Phosphatase (45-117) U/L Troponin I (0-0.045) ng/ml C-Reactive Protein (0-0.29) mg/dl Total Protein (6.4-8.2) gm/dl Albumin (3.4-5.0) gm/dl Globulin (2.5-4.0) gm/dl Albumin/Globulin Ratio (0.9-2) Urine Color Urine Appearance (Clear) Urine pH (4.5-7.5) Ur Specific [place] (1.000-1.030) Urine Protein (Negative) Urine Glucose (UA) (Negative) Urine Ketones (Negative) Urine Blood (Negative) Urine Nitrite (Negative) Urine Bilirubin (Negative) Urine Urobilinogen (Negative) Ur Leukocyte Esterase (Negative) SARS-CoV-2, RNA, NAAT NEGATIVE (NEGATIVE) Administered Medications Benztropine Mesylate (Benztropine Mesylate 1 Mg Tab) 2 mg PO BID KASANDRA Stop: 06/16/21 21:27 Last Admin: 05/17/21 21:59 Dose: 2 mg Documented by: [id number] Cephalexin HCl (Cephalexin 500 Mg Cap) 500 mg PO BID KASANDRA Stop: 05/23/21 21:27 Last Admin: 05/17/21 21:59 Dose: 500 mg Documented by: [id number] Fluphenazine HCl (Fluphenazine Hcl 2.5 Mg Tab) 10 mg PO BID KASANDRA Stop: 06/16/21 21:27 Last Admin: 05/17/21 22:00 Dose: 10 mg Documented by: [id number] Discontinued Medications Acetaminophen (Acetaminophen 500 Mg Tab) 1,000 mg PO NOW STA Stop: 05/17/21 14:31 Last Admin: 05/17/21 14:41 Dose: 1,000 mg Documented by: [id number] Ioversol (Optiray 320 100ml) 94 ml IV ONCE ONE Stop: 05/17/21 14:36 Last Admin: 05/17/21 14:35 Dose: 94 ml Documented by: [id number] Imaging Data Radiologist's Impression: Abdomen/Pelvis CT 05/17/21 13:15 CT abd pelvis IV con only CLINICAL HISTORY: Unwitnessed fall. Patient found on floor by the nursing staff. Pain. Patient fell last month as well COMPARISON STUDY: 04/12/2021 TECHNIQUE: Standard CT of the Abdomen and Pelvis was performed with IV contrast. A dose lowering technique was utilized adhering to the principles of ALARA. Contrast Volume: Optiray 320, 94 ml. The patient did not receive oral contrast. FINDINGS: Lung base: There is minimal dependent edema of the lung bases posteriorly. The lung bases are otherwise clear. There is evidence for coronary artery calcification. Abdominal cavity: There is no evidence for abdominal mass, adenopathy or ascites. There is no evidence for intra-abdominal or pelvic hematoma. Liver: There is homogeneous attenuation of the liver parenchyma. There is no evidence for enhancing mass lesion. Spleen: There is homogeneous attenuation of the splenic parenchyma. There is no enhancing mass lesion. Pancreas: There is homogeneous attenuation of the pancreatic parenchyma. There is no evidence for mass lesion or peripancreatic fluid collection. Gall Bladder: The gallbladder is well distended with no evidence for intr aluminal calculi, wall thickening or pericholecystic edema. Adrenal glands: The adrenal glands are normal in size and attenuation. There is no evidence for enhancing mass lesion. Kidneys: There is homogeneous attenuation of the renal parenchyma bilaterally. There is no evidence for renal calculus or hydronephrosis. There is no evidence for enhancing mass. Bowel: There is a small hiatal hernia. The bowel loops are normally placed within the abdomen and pelvis. There is no evidence for mass lesion. There are no inflammatory changes present. There is no evidence for free air. There is no evidence for an inflamed appendix. Bladder: The bladder is mildly distended with no evidence for focal mass, calculus or diverticulum. : There is no evidence for pelvic mass or adenopathy. There is no evidence for pelvic ascites. Vasculature: Small infrarenal abdominal aortic aneurysm measuring 2.4 cm is again seen. Atherosclerotic calcification is present. Osseous structures: There is no acute osseous pathology. Old right-sided healing rib fractures are again seen. Degenerative changes are present within the lumbar spine. IMPRESSION: 1. No acute intra-abdominal or pelvic abnormality. No significant interval change in the previous study. 2. Nonacute findings are again delineated above. ACT 112: Negative or not required by law. Electronically signed by: Wade Chavez M.D. 05/17/2021 3:[address] 05/17/21 13:[address] DOSE: HISTORY: Neck pain. fall TECHNIQUE: Multiaxial CT images of the cervical spine were performed and reformatted in the sagittal and coronal plane without the use of contrast. A dose lowering technique was utilized adhering to the principles of ALARA. COMPARISON: Cervical spine CT 11/02/2020. FINDINGS: Prior right-sided mastoidectomy. There is mild reversal of the normal lordotic curvature, unchanged. Mild anterolisthesis of C3 on C4, unchanged. No acute fracture or acute subluxation. Severe disc space narrowing and endplate osteophytes at C4-C5 and C5-C6. Minimal anterior wedging at T1 remains unchanged and is likely chronic. Moderate to severe facet degenerative changes within the cervical spine. Vertebral soft tissues and the C1-C2 interval are intact. Please refer to the same day head CT for further evaluation of the brain. IMPRESSION: No change compared to the prior study. No acute fractures within the cervical spine. ACT 112: Negative or not required by law. Electronically signed by: Moreno Han M.D. 05/17/2021 2:[address] 05/17/21 13:[address] WITH CONTRAST CT DOSE: 2117.33 mGy.cm HISTORY: Acute chest trauma status post fall fall TECHNIQUE: Multiaxial CT images of the chest were performed following the IV administration of 94 cc of Optiray. A dose lowering technique was utilized adhering to the principles of ALARA. COMPARISON: CT thoracic and lumbar spine studies of same day, CTA chest 08/27/2015 FINDINGS: Unremarkable thyroid. No adenopathy. Mild cardiomegaly with extensive coronary artery calcifications. No thoracic aortic aneurysm or dissection. Unremarkable pulmonary artery. No pneumothorax or pleural effusion. Moderate emphysema. No overt pulmonary edema. Mild dependent subsegmental bibasilar atelectasis. There are no suspicious pulmonary nodules or masses. 4 mm solid nodule of the right middle lobe on image 166, possibly new from 2016. Mild tracheobronchial secretions. Calcified granulomata of the spleen. Anteroinferior dislocation of the left glenohumeral joint with acute appearing Hill-Sachs deformity. Small joint effusion of the left shoulder. Subacute healing comminuted minimally displaced fracture of the right proximal humerus involves the greater and lesser tuberosities and surgical neck. Numerous healing subacute bilateral rib fractures. Which are minimally displaced, notably the third, fifth and sixth ribs. Mild superior endplate compression at T4 and T5 is chronic. Probable sebaceous cyst within the right upper back measures 2.3 cm IMPRESSION: 1. Subcoracoid anteroinferior left glenohumeral dislocation with acute Hill- Sachs injury. Small associated left glenohumeral joint effusion. 2. Healing subacute comminuted fractures of the proximal right humerus with only minimal displacement. 3. Healing subacute bilateral rib fractures, several of which are minimally displaced. 4. Moderate emphysema with mild subsegmental bibasilar atelectasis. 5. No pneumothorax. ACT 112: Negative or not required by law. Electronically signed by: Brenton Solorzano M.D. 05/17/2021 3:24 PM Foot X-Ray 05/17/21 13:15 XR foot RT min 3V routine CLINICAL HISTORY: Erythema and swelling of the foot. Evaluate for osteomyel itis. COMPARISON STUDY: No previous studies for comparison. TECHNIQUE: 3 right foot views FINDINGS: Bones: There is no evidence for an acute fracture or dislocation. There is no radiographic evidence for osteomyelitis. There is no lytic or blastic lesion. Joints: There is marked narrowing of the first MTP joint with secondary degenerative changes present representing the presence of hallux rigidus. Prominent osteophyte formation is present. The remaining joint spaces are maintained. The bones are in anatomic alignment. Soft tissues: Prominent soft tissue swelling is seen surrounding the first MTP joint. There is no radiopaque foreign body. IMPRESSION: No acute osseous pathology. Hallux rigidus with extensive degenerative changes and soft tissue swelling of the first MTP joint. ACT 112: Negative or not required by law. Electronically signed by: Wade Chavez M.D. 05/17/2021 4:[address] 05/17/21 13:15 CT OF THE HEAD WITHOUT CONTRAST CLINICAL HISTORY: Fall. COMPARISON STUDY: Head CT April 12, 2021 TECHNIQUE: Helical axial images of the head were obtained without IV contrast. Automated exposure control was utilized for the study. A dose lowering technique was utilized adhering to the principles of ALARA. 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 No acute intracranial hemorrhage, midline shift or mass effect is present. Ventricular dilatation is unchanged. This is likely due to atrophy. Basal cisterns are patent. There are no extra axial collections. White matter hypodensities suggest extensive small vessel disease. Right mastoidectomy is noted. There is no acute calvarial fracture. IMPRESSION: 1. No acute intracranial findings. No change in appearance of the brain. 2. No calvarial fracture. 3. 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 ACT 112: Negative or not required by law. Electronically signed by: Colton Pinto M.D. 05/17/2021 2:55 PM Humerus X-Ray 05/17/21 13:15 XR humerus RT 2V CLINICAL HISTORY: Status post fall with pain. Previous right humerus fracture.. COMPARISON STUDY: 04/12/2021 TECHNIQUE: AP and lateral right humerus views FINDINGS: Bones: Compared to previous examination, there is a healing, vertically oriented fracture through the bases of the tuberosities of the humerus. Callus formation is present. There is no evidence for an acute fracture or dislocation. There is no lytic or blastic lesion. Joints: The joint spaces are maintained. The bones are in anatomic alignment. Soft tissues: There is no focal soft tissue abnormality. There is no radiopaque foreign body. IMPRESSION: No acute osseous pathology. Healing fracture of the humeral head. ACT 112: Negative or not required by law. Electronically signed by: Wade Chavez M.D. 05/17/2021 4:[address] 05/17/21 13:15 CT lumbar spine w con HISTORY: Low back pain. fall TECHNIQUE: Multiaxial CT images of the lumbar spine were performed following the use of intravenous contrast and reformatted in the sagittal and coronal plane. COMPARISON STUDY: None. FINDINGS: Mild levoscoliosis which could be positional. No acute fracture or subluxation within the lumbar spine. The visualized sacrum is intact. [id number] facet degenerative changes within the lumbar spine. There is mild disc space narrowing at L3-L4 and L4-5. Paraspinal soft tissues are unremarkable. The central canal appears patent. There is a healing right posterior 12th rib fracture. There is focal ectasia of the abdominal aorta measuring 2.5 cm in diameter. Possible healing right L1 transverse process fractures. IMPRESSION: 1. No acute fractures within the lumbar spine. 2. Degenerative changes as described above. 3. Healing right posterior 12th rib fracture and a possible healing right L1 transverse process fracture. ACT 112: Negative or not required by law. Electronically signed by: Moreno Han M.D. 05/17/2021 2:[address] 05/17/21 13:15 CT thoracic spine w con HISTORY: 75 years-old Male fall [back injury status post fall COMPARISON: CT chest and lumbar spine of same day, CTA chest 08/27/2015. TECHNIQUE: Multiple axial CT images of the thoracic spine were obtained following the intravenous ministration of 94 mL Optiray 320. A dose lowering technique was used consistent with the principals of ALARA. FINDINGS: Healing subacute nondisplaced fractures of the posterior right 12th rib and medial aspects of the right third through fifth ribs. No pneumothorax. Emphysema with atelectasis. Mild superior endplate compression at T4 and T5 is unchanged from 2016. Multilevel spondylitic spurring with facet arthrosis. Moderate disc space narrowing of the lower cervical spine. No acute fracture or subluxation of the thoracic spine identified. IMPRESSION: 1. No acute fracture or subluxation of the thoracic spine. 2. Subacute healing right-sided rib fractures. ACT 112: Negative or not required by law. The above report was generated using voice recognition software. It may contain grammatical, syntax or spelling errors. Electronically signed by: Brenton Solorzano M.D. 05/17/2021 3:19 PM Humerus X-Ray 05/17/21 15:40 XR humerus LT 2V CLINICAL HISTORY: shoulder dislocation COMPARISON: None FINDINGS: Anterior left shoulder dislocation is noted with associated Hill- Sachs impaction injury. No distal left humeral fracture is noted. Alignment of the left elbow is anatomic. IMPRESSION: Anterior left shoulder dislocation with associated Hill-Sachs impaction injury. ACT 112: Negative or not required by law. Electronically signed by: Colton Pinto M.D. 05/17/2021 4:10 PM Shoulder X-Ray 05/17/21 15:40 XR shoulder LT min 2V routine CLINICAL HISTORY: dislocation COMPARISON: None FINDINGS: Note is made of an anterior left shoulder dislocation with associated Hill-Sachs impaction injury. No additional acute fractures are identified. There are several healing left-sided rib fractures. IMPRESSION: Anterior left shoulder dislocation with associated Hill-Sachs impaction injury. ACT 112: Negative or not required by law. Electronically signed by: Colton Pinto M.D. 05/17/2021 4:10 PM Shoulder X-Ray 05/17/21 15:55 XR shoulder LT min 2V routine CLINICAL HISTORY: post reduction COMPARISON: Left shoulder radiographs May 17, 2021 at 3:27 PM. FINDINGS: There is anatomic alignment of the left glenohumeral joint post reduction. Hill-Sachs impaction injury is again noted. This was present on prior study. Joint space narrowing of the left acromioclavicular joint is noted as well as several subacute to chronic left-sided rib fractures. IMPRESSION: Anatomic alignment of the left glenohumeral joint post reduction. Redemonstration of a Hill-Sachs impaction injury. ACT 112: Negative or not required by law. Electronically signed by: Colton Pinto M.D. 05/17/2021 4:11 PM ECG Data Additional Comments: Normal sinus rhythm with sinus arrhythmia at 75 bpm. No ectopy or concerns for acute ischemic change. Discharge Plan Visit Data Chief Complaint: Fall Stated Complaint: FALL, R SHOULDER INJURY ED Provider: Anatoliy Burgos ED Midlevel Provider: Gabi Swain Discharge Problem: Multiple falls, Dislocation of shoulder, left, closed, Hill Sachs deformity, left, Cellulitis of foot, right, Dementia Patient Disposition: Admitted As Inpatient Discharge Instructions Interventions: ED Discharge Assessment Last Done: 05/17/21 20:41
[2021-05-17 13:52] LABS: Basophils # (auto) 0.01 K/uL (0-0.2); Basophils % (auto) 0.2 %; Eosinophils # (auto) 0.06 K/uL (0-0.5); Eosinophils % (auto) 0.9 %; Hematocrit (blood only) 39.3 % (42-52); Hemoglobin 13.2 g/dL (14.0-18.0); Immature Granulocytes # (auto) 0.01 K/uL (0.00-0.02); Immature Granulocytes % (auto) 0.2 %; Lymphocytes # (auto) 1.09 K/uL (1.2-3.4); Lymphocytes % (auto) 16.9 %; Mean Corpuscular Hemoglobin 31.7 pg (25-34); Mean Corpuscular Hgb Conc 33.6 g/dL (32-36); Mean Corpuscular Volume 94.5 fL (80-100); Mean Platelet Volume 11.9 fL (7.4-10.4); Monocytes # (auto) 0.56 K/uL (0.11-0.59); Monocytes % (auto) 8.7 %; Neutrophils # (auto) 4.71 K/uL (1.4-6.5); Neutrophils % (auto) 73.1 %; Platelet Count 158 K/uL (130-400); RDW Coefficient of Variation 12.8 % (11.5-14.5); RDW Standard Deviation 43.9 fL (36.4-46.3); Red Blood Count 4.16 M/uL (4.7-6.1); White Blood Count 6.44 K/uL (4.8-10.8)
[2021-05-17 14:09] LABS: Albumin Level 2.9 gm/dl (3.4-5.0); BUN Creatinine Ratio 14.8 (10-20); Blood Urea Nitrogen 12 mg/dl (7-18); Calcium 9.5 mg/dl (8.5-10.1); Carbon Dioxide 29 mmol/L (21-32); Chloride 109 mmol/L (98-107); Creatinine Clr Calc Pharmacy 64.2 ml/min; Est GFR (African American) 99.6 ml/min; Est GFR (Non-African American) 85.9 ml/min; Glucose 113 mg/dl (70-99); Potassium 4.1 mmol/L (3.5-5.1); Sodium 141 mmol/L (136-145)
[2021-05-17 14:14] LABS: Alanine Aminotransferase 28 U/L (12-78); Albumin Globulin Ratio 0.7 (0.9-2); Alkaline Phosphatase 146 U/L (45-117); Aspartate Aminotransferase 23 U/L (15-37); Bilirubin,Total 0.4 mg/dl (0.2-1); C Reactive Protein 2.53 mg/dl (0-0.29); Globulin 4.2 gm/dl (2.5-4.0); Total Protein 7.1 gm/dl (6.4-8.2); Troponin I < 0.015 ng/ml (0-0.045)
[2021-05-17] MEDS ORDERED: ACETAMINOPHEN 500 MG TAB PO STA (14:30)
[2021-05-17] MEDS ORDERED: OPTIRAY 320 100ml IV ONE (14:35)
--- NOTE | 2021-05-17 14:51 | CT Scan Report ---
CERVICAL SPINE CT CT DOSE: HISTORY: Neck pain. fall TECHNIQUE: Multiaxial CT images of the cervical spine were performed and reformatted in the sagittal and coronal plane without the use of contrast. A dose lowering technique was utilized adhering to e principles of ALARA. COMPARISON: Cervical spine CT 11/02/2020. FINDINGS: Prior right-sided mastoidectomy. There is mild reversal of the normal lordotic curvature, u nchanged. Mild anterolisthesis of C3 on C4, unchanged. No acute fracture or acute subluxation. Severe disc space narrowing and endplate osteophytes at C4-C5 and C5-C6. Minimal anterior wedging at T1 rem ains unchanged and is likely chronic. Moderate to severe facet degenerative changes within the cervic al spine. Vertebral soft tissues and the C1-C2 interval are intact. Please refer to the same day head CT for further evaluation of the brain. IMPRESSION: No change compared to the prior study. No acute fractures within the cervical spine. ACT 112: Negative or not required by law. Electronically signed by: Moreno Han M.D. 05/17/2021 2:50 PM
--- NOTE | 2021-05-17 14:56 | CT Scan Report ---
CT OF THE HEAD WITHOUT CONTRAST CLINICAL HISTORY: Fall. COMPARISON STUDY: Head CT April 12, 2021 TECHNIQUE: Helical axial images of the head were obtained without IV contrast. Automated exposure con trol was utilized for the study. A dose lowering technique was utilized adhering to the principles o f ALARA. 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 No acute intracran ial hemorrhage, midline shift or mass effect is present. Ventricular dilatation is unchanged. This is likely due to atrophy. Basal cisterns are patent. There are no extra axial collections. White matter hypodensities suggest extensive small vessel disease. Right mastoidectomy is noted. There is no acut e calvarial fracture. IMPRESSION: 1. No acute intracranial findings. No change in appearance of the brain. 2. No calvarial fracture. 3. 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 ACT 112: Negative or not required by law. Electronically signed by: Colton Pinto M.D. 05/17/2021 2:55 PM
--- NOTE | 2021-05-17 14:57 | CT Scan Report ---
CT lumbar spine w con HISTORY: Low back pain. fall TECHNIQUE: Multiaxial CT images of the lumbar spine were performed following the use of intravenous c ontrast and reformatted in the sagittal and coronal plane. COMPARISON STUDY: None. FINDINGS: Mild levoscoliosis which could be positional. No acute fracture or subluxation within the l umbar spine. The visualized sacrum is intact. [id number]-pn-[id number] facet degenerative changes within the lumbar spine. There is mild disc space narrowing at L3-L4 and L4-5. Paraspinal soft tissues are unrem arkable. The central canal appears patent. There is a healing right posterior 12th rib fracture. Ther e is focal ectasia of the abdominal aorta measuring 2.5 cm in diameter. Possible healing right L1 tra nsverse process fractures. IMPRESSION: 1. No acute fractures within the lumbar spine. 2. Degenerative changes as described above. 3. Healing right posterior 12th rib fracture and a possible healing right L1 transverse process fract ure. ACT 112: Negative or not required by law. Electronically signed by: Moreno Han M.D. 05/17/2021 2:55 PM
--- NOTE | 2021-05-17 15:15 | CT Scan Report ---
CT abd pelvis IV con only CLINICAL HISTORY: Unwitnessed fall. Patient found on floor by the nursing staff. Pain. Patient fell l ast month as well COMPARISON STUDY: 04/12/2021 TECHNIQUE: Standard CT of the Abdomen and Pelvis was performed with IV contrast. A dose lowering ang hnique was utilized adhering to the principles of ALARA. Contrast Volume: Optiray 320, 94 ml. The patient did not receive oral contrast. FINDINGS: Lung base: There is minimal dependent edema of the lung bases posteriorly. The lung bases are otherwi se clear. There is evidence for coronary artery calcification. Abdominal cavity: There is no evidence for abdominal mass, adenopathy or ascites. There is no evidenc e for intra-abdominal or pelvic hematoma. Liver: There is homogeneous attenuation of the liver parenchyma. There is no evidence for enhancing m ass lesion. Spleen: There is homogeneous attenuation of the splenic parenchyma. There is no enhancing mass lesion . Pancreas: There is homogeneous attenuation of the pancreatic parenchyma. There is no evidence for mas s lesion or peripancreatic fluid collection. Gall Bladder: The gallbladder is well distended with no evidence for intraluminal calculi, wall thick ening or pericholecystic edema. Adrenal glands: The adrenal glands are normal in size and attenuation. There is no evidence for enhan cing mass lesion. Kidneys: There is homogeneous attenuation of the renal parenchyma bilaterally. There is no evidence f or renal calculus or hydronephrosis. There is no evidence for enhancing mass. Bowel: There is a small hiatal hernia. The bowel loops are normally placed within the abdomen and pel vis. There is no evidence for mass lesion. There are no inflammatory changes present. There is no courtney dence for free air. There is no evidence for an inflamed appendix. Bladder: The bladder is mildly distended with no evidence for focal mass, calculus or diverticulum. : There is no evidence for pelvic mass or adenopathy. There is no evidence for pelvic ascites. Vasculature: Small infrarenal abdominal aortic aneurysm measuring 2.4 cm is again seen. Atherosclerot ic calcification is present. Osseous structures: There is no acute osseous pathology. Old right-sided healing rib fractures are ag ain seen. Degenerative changes are present within the lumbar spine. IMPRESSION: 1. No acute intra-abdominal or pelvic abnormality. No significant interval change in the previous daivd dy. 2. Nonacute findings are again delineated above. ACT 112: Negative or not required by law. Electronically signed by: Wade Chavez M.D. 05/17/2021 3:14 PM
--- NOTE | 2021-05-17 15:21 | CT Scan Report ---
CT thoracic spine w con HISTORY: 75 years-old Male fall [back injury status post fall COMPARISON: CT chest and lumbar spine of same day, CTA chest 08/27/2015. TECHNIQUE: Multiple axial CT images of the thoracic spine were obtained following the intravenous min istration of 94 mL Optiray 320. A dose lowering technique was used consistent with the principals of ALARA. FINDINGS: Healing subacute nondisplaced fractures of the posterior right 12th rib and medial aspects of the rig ht third through fifth ribs. No pneumothorax. Emphysema with atelectasis. Mild superior endplate comp ression at T4 and T5 is unchanged from 2016. Multilevel spondylitic spurring with facet arthrosis. Mo derate disc space narrowing of the lower cervical spine. No acute fracture or subluxation of the thor acic spine identified. IMPRESSION: 1. No acute fracture or subluxation of the thoracic spine. 2. Subacute healing right-sided rib fractures. ACT 112: Negative or not required by law. The above report was generated using voice recognition software. It may contain grammatical, syntax o r spelling errors. Electronically signed by: Brenton Solorzano M.D. 05/17/2021 3:19 PM
--- NOTE | 2021-05-17 15:25 | CT Scan Report ---
CHEST CT WITH CONTRAST CT DOSE: 2117.33 mGy.cm HISTORY: Acute chest trauma status post fall fall TECHNIQUE: Multiaxial CT images of the chest were performed following the IV administration of 94 cc of Optiray. A dose lowering technique was utilized adhering to the principles of ALARA. COMPARISON: CT thoracic and lumbar spine studies of same day, CTA chest 08/27/2015 FINDINGS: Unremarkable thyroid. No adenopathy. Mild cardiomegaly with extensive coronary artery calcifications. No thoracic aortic aneurysm or dissection. Unremarkable pulmonary artery. No pneumothorax or pleural effusion. Moderate emphysema. No overt pulmonary edema. Mild dependent sub segmental bibasilar atelectasis. There are no suspicious pulmonary nodules or masses. 4 mm solid nodu le of the right middle lobe on image 166, possibly new from 2016. Mild tracheobronchial secretions. Calcified granulomata of the spleen. Anteroinferior dislocation of the left glenohumeral joint with a cute appearing Hill-Sachs deformity. Small joint effusion of the left shoulder. Subacute healing comm inuted minimally displaced fracture of the right proximal humerus involves the greater and lesser tub erosities and surgical neck. Numerous healing subacute bilateral rib fractures. Which are minimally d isplaced, notably the third, fifth and sixth ribs. Mild superior endplate compression at T4 and T5 is chronic. Probable sebaceous cyst within the right upper back measures 2.3 cm IMPRESSION: 1. Subcoracoid anteroinferior left glenohumeral dislocation with acute Hill-Sachs injury. Small assoc iated left glenohumeral joint effusion. 2. Healing subacute comminuted fractures of the proximal right humerus with only minimal displacement . 3. Healing subacute bilateral rib fractures, several of which are minimally displaced. 4. Moderate emphysema with mild subsegmental bibasilar atelectasis. 5. No pneumothorax. ACT 112: Negative or not required by law. Electronically signed by: Brenton Solorzano M.D. 05/17/2021 3:24 PM
[2021-05-17 15:28] LABS: Appearance Urine Clear (Clear); Bilirubin Urine Negative (Negative); Blood Urine Negative (Negative); Color Urine Yellow; Glucose Urine UA Negative (Negative); Ketones Urine Negative (Negative); Leukocyte Esterase Urine Negative (Negative); Nitrite Urine Negative (Negative); Protein Urine Negative (Negative); Specific Gravity Urine 1.015 (1.000-1.030); Urobilinogen Urine Negative (Negative)
--- NOTE | 2021-05-17 16:00 | Emergency Department Note ---
ED Visit Note I did evaluate and examine this patient myself. I did guide management for the patient. I agree with the PA's assessment as discussed. Please see the PAs dictation for further details. I did independently review the CT scans, twelve- lead EKG, x-rays and blood work. He has a mild anemia on blood work with a hemoglobin of 13.2. His white count is not elevated but he does have elevation of his C-reactive protein. He does have a healing cellulitis to the right foot. Troponin is negative. Twelve-lead EKG does not demonstrate any acute ischemia. Urinalysis is clear. He does appear to have a shoulder dislocation on examination as well as on x-ray. I did perform reduction as described below. Anterior Shoulder Dislocation Reduction Indication: Left shoulder dislocation A time out was taken. Neurovascular examination before the procedure revealed no deficits. The left shoulder glenohumeral dislocation was reduced by placing t he patient upright and pulling traction forward while my speech and language assistant provided countertraction and scapular manipulation. This resulted in an easy reduction without complication. Neurovascular examination after the procedure revealed no deficits. The patient had significant pain relief and tolerated the procedure well. Postreduction films showed good alignment. The patient will be referred to [facility] for further care and management. .
--- NOTE | 2021-05-17 16:09 | XRay Report ---
XR humerus RT 2V CLINICAL HISTORY: Status post fall with pain. Previous right humerus fracture.. COMPARISON STUDY: 04/12/2021 TECHNIQUE: AP and lateral right humerus views FINDINGS: Bones: Compared to previous examination, there is a healing, vertically oriented fracture through the bases of the tuberosities of the humerus. Callus formation is present. There is no evidence for an a cute fracture or dislocation. There is no lytic or blastic lesion. Joints: The joint spaces are maintained. The bones are in anatomic alignment. Soft tissues: There is no focal soft tissue abnormality. There is no radiopaque foreign body. IMPRESSION: No acute osseous pathology. Healing fracture of the humeral head. ACT 112: Negative or not required by law. Electronically signed by: Wade Chavez M.D. 05/17/2021 4:08 PM
--- NOTE | 2021-05-17 16:11 | XRay Report ---
XR shoulder LT min 2V routine CLINICAL HISTORY: dislocation COMPARISON: None FINDINGS: Note is made of an anterior left shoulder dislocation with associated Hill-Sachs impaction injury. No additional acute fractures are identified. There are several healing left-sided rib fract ures. IMPRESSION: Anterior left shoulder dislocation with associated Hill-Sachs impaction injury. ACT 112: Negative or not required by law. Electronically signed by: Colton Pinto M.D. 05/17/2021 4:10 PM
--- NOTE | 2021-05-17 16:12 | XRay Report ---
XR humerus LT 2V CLINICAL HISTORY: shoulder dislocation COMPARISON: None FINDINGS: Anterior left shoulder dislocation is noted with associated Hill-Sachs impaction injury. N o distal left humeral fracture is noted. Alignment of the left elbow is anatomic. IMPRESSION: Anterior left shoulder dislocation with associated Hill-Sachs impaction injury. ACT 112: Negative or not required by law. Electronically signed by: Colton Pinto M.D. 05/17/2021 4:10 PM
--- NOTE | 2021-05-17 16:12 | XRay Report ---
XR foot RT min 3V routine CLINICAL HISTORY: Erythema and swelling of the foot. Evaluate for osteomyelitis. COMPARISON STUDY: No previous studies for comparison. TECHNIQUE: 3 right foot views FINDINGS: Bones: There is no evidence for an acute fracture or dislocation. There is no radiographic evidence f or osteomyelitis. There is no lytic or blastic lesion. Joints: There is marked narrowing of the first MTP joint with secondary degenerative changes present representing the presence of hallux rigidus. Prominent osteophyte formation is present. The remaining joint spaces are maintained. The bones are in anatomic alignment. Soft tissues: Prominent soft tissue swelling is seen surrounding the first MTP joint. There is no rad iopaque foreign body. IMPRESSION: No acute osseous pathology. Hallux rigidus with extensive degenerative changes and soft t issue swelling of the first MTP joint. ACT 112: Negative or not required by law. Electronically signed by: Wade Chavez M.D. 05/17/2021 4:11 PM
--- NOTE | 2021-05-17 16:13 | XRay Report ---
XR shoulder LT min 2V routine CLINICAL HISTORY: post reduction COMPARISON: Left shoulder radiographs May 17, 2021 at 3:27 PM. FINDINGS: There is anatomic alignment of the left glenohumeral joint post reduction. Hill-Sachs impa ction injury is again noted. This was present on prior study. Joint space narrowing of the left acrom ioclavicular joint is noted as well as several subacute to chronic left-sided rib fractures. IMPRESSION: Anatomic alignment of the left glenohumeral joint post reduction. Redemonstration of a Hi ll-Sachs impaction injury. ACT 112: Negative or not required by law. Electronically signed by: Colton Pinto M.D. 05/17/2021 4:11 PM
--- NOTE | 2021-05-17 19:44 | History & Physical Report ---
Date of Service May 17, 2021 Assessment & Plan (1) Weakness: Plan: Patient is a 75 year old male with PMHx COPD, Multiple Falls, Dementia, Anxiety, PTSD, who presents from [facility] for a fall on his L side in addition to being on the ground for 30 minutes before being found. Multiple Falls -Patient with multiple falls in the past 1 year, worsening per daughter -Likely require 24 hour care at this time which he currently does not have at [facility] -On arrival with L shoulder dislocation, no s/p reduction in the ED -CT thoracic and lumbar spine without acute fracture of the thoracic spine -CT Head negative for acute fracture or bleed -Discussed with family in regards to long-term care, interested in hospice -Will consult Palliative medicine for assistance in hospice transition -PT/OT ordered Dementia, PTSD -Has been worsening over the past 1 year per daughter -Continue home Benztropine, Effexor, and Fluphenazine R foot Erythema -Patient on treatment with Keflex for cellulitis today day 10/03 -Will continue Keflex -Foot is concerning for gout though, will check uric acid level Dispo: Med/Surg FEN: Regular diet DVT: SCDs Code: DNR/DNI (2) Falls: (3) Dementia: (4) Esophagitis: History of Present Illness Chief Complaint: Falls Primary Care Provider: [facility] Patient is a 75 year old male with PMHx COPD, Multiple Falls, Dementia, Anxiety, PTSD, who presents from [facility] for a fall on his L side in addition to being on the ground for 30 minutes before being found. Patient's dementia is fairly profound and his ability to answer questions at this time is limited. History is gathered from previous notation and discussion with his daughter. His daughter notes that the patient has had significant increase in his falls in the past 1 year and that it has gotten to the point where she and the family feel that he requires 24/7 care and that hospice may be more appropriate for him. Patient was noted to have a recent fall previous to this visit where he had fractured his R humeral head which is still in the process of healing. At his fall today, he had an anterior left shoulder dislocation with associated Hill-Sachs impaction injury which was reduced in the ED to good effect. ROS unobtainable from patient at this time. Also of note, patient has had swelling of his R foot MTP with erythema, felt to be cellulitis and is on treatment day 10/03 of Keflex. Patient at this time will be admitted for monitoring, discussion with palliative care, and likely discharge on hospice. Allergies Allergy/AdvReac Type Severity Reaction Status Date / Time No Known Allergies Allergy Verified 05/17/21 15:58 Home Medications Medication Instructions Recorded Confirmed Type benztropine 2 mg tablet 2 mg PO BID #20 tab 05/26/20 05/17/21 Rx cetirizine 10 mg tablet 10 mg PO QAM 11/02/20 05/17/21 History docusate sodium 100 mg capsule 100 mg PO QAM 11/02/20 05/17/21 History fluphenazine HCl 10 mg tablet 10 mg PO BID 11/02/20 05/17/21 History multivitamin 1 tab PO QAM 11/02/20 05/17/21 History venlafaxine 75 mg capsule,extended 225 mg PO QAM 11/02/20 05/17/21 History release 24 hr acetaminophen 500 mg tablet 1,000 mg PO Q6H PRN MDD 6 TABS 05/17/21 05/17/21 History cephalexin 500 mg capsule 500 mg PO BID 05/17/21 05/17/21 History cholecalciferol (vitamin D3) 125 125 mcg PO DAILY 05/17/21 05/17/21 History mcg (5,000 unit) capsule Past Med/Surg History Medical History Acute urinary retention COPD (chronic obstructive pulmonary disease) Dementia Duodenal ulcer Elevated CK-MB level Esophageal reflux Esophagitis PTSD (post-traumatic stress disorder) Weakness Surgical History No pertinent past surgical history Social History Smoking Status: Former smoker Cigarettes Per Day: 10; Second Hand Exposure: No; Hx Alcohol Use: No Hx Substance Use: No Preferred Language: Paraguayan Communication Ability: Effective Communication Ability Comment: unsure of intellectual ability, Hx of dementia Bit Sharpener Required: No Beliefs That Will Affect Care: None marital status: / Current Living Situation: Personal Care Facility Current Living Situation Comment: lives with daughter and son in law Other Information That Helps Us Care for You: No Feels Safe at Home: Declines to Answer Assistive Devices: Walker Review of Systems Review of Systems: Unobtainable due to cognitive status Physical Exam Constitutional: well developed, well nourished and + altered mental status; no acute distress Eyes: PERRL, conjunctivae normal, anicteric sclerae ENMT: external ear and nose normal, oropharynx normal Neck: trachea midline, no thyromegaly Respiratory: normal respiratory effort, lungs clear to auscultation Cardiovascular: RRR, no murmur, no edema Gastrointestinal (Abdomen): normal bowel sounds, soft, nontender, no hepatosplenomegaly Musculoskeletal: Head/Neck/Chest: normocephalic and head atraumatic Patient not willing to participate in exam. R foot MTP with mild erythema surrounding a swollen fluid filled joint. No tenderness appears elicited with palpation as patient does not recoil. Neurologic: + confused; + not awake Psychiatric: Orientation: + not alert and + not oriented x 3 Eye Contact: + poor eye contact Results & Data Results & Data ([facility]) Vital Signs (Past 12 Hours) Vital Signs Temp Pulse Resp BP Pulse Ox 05/17/21 19:10 67 20 123/86 96 05/17/21 18:00 76 20 135/55 L 96 05/17/21 17:17 79 22 117/57 L 95 05/17/21 15:05 100 H 22 118/73 93 05/17/21 12:42 36.7 C 69 24 136/65 93 Supervising Physician Co-Signing Physician Notes Attending addendum: I have physically seen this patient, have supervised the medical residents activities, and agree with the H&P unless as otherwise noted. Assessment and Plan: Generalized weakness/multiple falls- Symptoms worsening per the patient's daughter Status post left shoulder dislocation and reduction in the ED tonight CT head, thoracic and lumbar spine negative for acute findings Consult palliative medicine due to family interested in hospice Dementia/PTSD- Continue home medications: Benztropine, Effexor and fluphenazine Remaining orders and notations as noted Resident Activity Tracking Resident Involvement: Resident Care Provided Care Provided: Adult Hospital Medicine (1) Dementia Dementia type: unspecified type
[2021-05-17] MEDS: BENZTROPINE MESYLATE 1 MG TAB PO SCH (21:59)
[2021-05-17] MEDS: cephALEXin 500 MG CAP PO SCH (21:59)
[2021-05-18 06:37] LABS: Basophils # (auto) 0.01 K/uL (0-0.2); Basophils % (auto) 0.1 %; Eosinophils # (auto) 0.08 K/uL (0-0.5); Eosinophils % (auto) 0.8 %; Hematocrit (blood only) 41.6 % (42-52); Hemoglobin 13.5 g/dL (14.0-18.0); Immature Granulocytes # (auto) 0.03 K/uL (0.00-0.02); Immature Granulocytes % (auto) 0.3 %; Lymphocytes # (auto) 2.84 K/uL (1.2-3.4); Lymphocytes % (auto) 29.4 %; Mean Corpuscular Hemoglobin 30.8 pg (25-34); Mean Corpuscular Hgb Conc 32.5 g/dL (32-36); Mean Platelet Volume 12.2 fL (7.4-10.4); Monocytes # (auto) 1.05 K/uL (0.11-0.59); Monocytes % (auto) 10.9 %; Neutrophils # (auto) 5.64 K/uL (1.4-6.5); Neutrophils % (auto) 58.5 %; Platelet Count 202 K/uL (130-400); RDW Coefficient of Variation 12.8 % (11.5-14.5); RDW Standard Deviation 44.6 fL (36.4-46.3); Red Blood Count 4.38 M/uL (4.7-6.1); White Blood Count 9.65 K/uL (4.8-10.8)
[2021-05-18 07:12] LABS: BUN Creatinine Ratio 9.9 (10-20); Calcium 9.2 mg/dl (8.5-10.1); Creatinine Clr Calc Pharmacy 58.5 ml/min; Est GFR (African American) 95.8 ml/min; Est GFR (Non-African American) 82.7 ml/min; Potassium 3.3 mmol/L (3.5-5.1)
[2021-05-18] MEDS ORDERED: CHOLECALCIFEROL 1,000 UNITS 25 MCG TAB PO SCH (09:00)
[2021-05-18] MEDS: BENZTROPINE MESYLATE 1 MG TAB PO SCH ×2 (09:57→21:11)
[2021-05-18] MEDS: cephALEXin 500 MG CAP PO SCH ×2 (09:57→22:08)
[2021-05-18] MEDS: DOCUSATE SODIUM 100 MG CAP PO SCH (09:58)
[2021-05-18] MEDS: CHOLECALCIFEROL 1,000 UNITS 25 MCG TAB PO SCH (09:58)
[2021-05-18] MEDS: VENLAFAXINE HCL XR 75 MG CAPXR PO SCH (09:59)
--- NOTE | 2021-05-18 10:44 | Palliative Care Consultation ---
Date of Consultation May 18, 2021 Assessment & Plan (1) Dementia: Per discussion with RN and with his daughter, Cele, he is FAST 6C. With his recent falls and wandering (his daughter notes that he was found at a nearby construction site), he requires higher level of care than assisted living at this point. (2) Palliative care encounter: I spoke with Cele about care planning for Richy. She confirms that he is DNR. She understands that he needs higher level of care and is looking at SNFs. She lives in [place] and notes that SNFs in [facility] or [facility] all be viable options for placement. He is a [employer] [place] and is eligible for benefits through the [facility]. We discussed hospice care. Though he has had definite decline in the last year, he does not meet medicare criteria for hospice eligibility with dementia. Discussed with case management. (3) COPD (chronic obstructive pulmonary disease): (4) PTSD (post-traumatic stress disorder): History of Present Illness Reason for Consultation: goals of care Requesting Physician: Dr. Wilkinson Attending Physician: Sagar Nieto DO History of Present Illness 75 yo gentleman with history of dementia, COPD, anxiety and PTSD. He resides at [facility] and has had multiple falls over the last year. He had a right humeral head fracture related to a recent fall and was found to have left anterior shoulder disclocation on presentation in the ER after most recent fall. We were consulted to assist with goals of care as his daughter had asked about hospice on admission. Richy is awake and denies pain or dyspnea. He asked me if e verything sounded ok when I listened to his heart. Per RN he has been ambulating to bathroom with supervision. Allergies Allergy/AdvReac Type Severity Reaction Status Date / Time No Known Allergies Allergy Verified 05/17/21 15:58 Home Medications Medication Instructions Recorded Confirmed Type benztropine 2 mg tablet 2 mg PO BID #20 tab 05/26/20 05/17/21 Rx cetirizine 10 mg tablet 10 mg PO QAM 11/02/20 05/17/21 History docusate sodium 100 mg capsule 100 mg PO QAM 11/02/20 05/17/21 History fluphenazine HCl 10 mg tablet 10 mg PO BID 11/02/20 05/17/21 History multivitamin 1 tab PO QAM 11/02/20 05/17/21 History venlafaxine 75 mg capsule,extended 225 mg PO QAM 11/02/20 05/17/21 History release 24 hr acetaminophen 500 mg tablet 1,000 mg PO Q6H PRN MDD 6 TABS 05/17/21 05/17/21 History cephalexin 500 mg capsule 500 mg PO BID 05/17/21 05/17/21 History cholecalciferol (vitamin D3) 125 125 mcg PO DAILY 05/17/21 05/17/21 History mcg (5,000 unit) capsule Patient History Medical History Acute urinary retention COPD (chronic obstructive pulmonary disease) Dementia Duodenal ulcer Elevated CK-MB level Esophageal reflux Esophagitis PTSD (post-traumatic stress disorder) Weakness Surgical History No pertinent past surgical history Social History Smoking Status: Former smoker Cigarettes Per Day: 10; Second Hand Exposure: No; Hx Alcohol Use: No Hx Substance Use: No Preferred Language: Nepali Communication Ability: Effective Communication Ability Comment: unsure of intellectual ability, Hx of dementia Strategic Accounts Manager Required: No Beliefs That Will Affect Care: None marital status: / Current Living Situation: Personal Care Facility Current Living Situation Comment: lives with daughter and son in law Other Information That Helps Us Care for You: No Feels Safe at Home: Declines to Answer Assistive Devices: None Review of Systems Review of Systems: [place] Symptom Assessment Scale Pain 0/3 Dyspnea 0/3 Anxiety 0/3 Drowsiness 0/3 Palliative Performance Score 50% Physical Exam Constitutional: no acute distress Respiratory: normal respiratory effort; no labored breathing Cardiovascular: Rate/Rhythm: regular rate and regular rhythm Gastrointestinal (Abdomen): nontender Neurologic: awake; not confused Results & Data ([facility]) Vital Signs (Past 12 Hours) Vital Signs Temp Pulse Resp BP Pulse Ox 05/18/21 06:10 97.9 F 74 17 155/74 H 98 PG Care Time/CCT Total # of Minutes Spent Total Time Spent: 70 Total Time Spent with Patient: Total time spent is greater than 50% in coordination of care (as documented) at patient's floor/unit and/or counseling patient: goals of care, code status, hospice, family education and support Coding Level of Care Code 93273 Initial Inpt Care Lvl 3 Diagnoses Dementia F03.90 Palliative care encounter Z51.5 COPD (chronic obstructive pulmonary disease) J44.9 PTSD (post-traumatic stress disorder) F43.10
--- NOTE | 2021-05-18 16:20 | Hospitalist Progress Note ---
Date of Service May 18, 2021 Assessment & Plan (1) Weakness: Plan: Patient is a 75 year old male with PMHx COPD, Multiple Falls, Dementia, Anxiety, PTSD, who presents from [facility] for a fall on his L side in addition to being on the ground for 30 minutes before being found. Multiple Falls -Patient with multiple falls in the past 1 year, worsening per daughter -Likely require 24 hour care at this time which he currently does not have at [facility] -On arrival with L shoulder dislocation, no s/p reduction in the ED -CT thoracic and lumbar spine without acute fracture of the thoracic spine -CT Head negative for acute fracture or bleed -Discussed with family in regards to long-term care, interested in hospice -Palliative care states that he does not meet the criteria for hospice care for dementia. -PT/OT ordered. PT recommend discontinuing acute physical therapy while in the hospital as it will not decrease his risk for falls. Occupational Therapy recommends 24/7 care as he has been receiving prior to admission to the hospital. -Awaiting placement for a dementia [facility]. Dementia, PTSD -Has been worsening over the past 1 year per daughter -Continue home Benztropine, Effexor, and Fluphenazine R foot Erythema -Patient on treatment with Keflex for cellulitis today day 10/03 -Will continue Keflex -Uric acid within normal limits. Dispo: Med/Surg FEN: Regular diet DVT: SCDs Code: DNR/DNI (2) Falls: (3) Dementia: (4) Esophagitis: Admission and Anticipated Discharge Date Admission Date: May 17, 2021 Supervising Physician Co-Signing Physician Notes I personally examined the patient and verified all thompson points of history and exam, discussed case, and agree with decision making with Dr Saenz. No meaningful HPI or review of systems obtainable. Eating dinner whenever I see him. Vitals noted, in general he is awake but appears disoriented. No distress. HEENT normocephalic atraumatic mucous membranes moist. Breathing unlabored no accessory muscle use good effort. Skin shows no rashes no pallor or icterusmost notably there is no erythema open lesions ulcers warmth etc. on either of his feet. Progressive dementia with multiple fallsappears to require higher level of care. Question of cellulitis on his footdoubt that it completely resolved that quicklyto avoid accidental iatrogenic harmwe will hold off on further antibiotics and follow. Should there be any true erythema that occurs, we can resume antibiotics, but there really does not appear to be an indication at this time. Otherwise as above. Subjective Patient seen at bedside this morning. Patient is pleasantly demented and can only answer questions in yes or no manner. He answers no to question of whether he is feeling any pain today. He also says no to the question of if he is having any nausea, vomiting, chest pain, or shortness of breath. Nurse reports that there is no overnight events. Patient has no complaints at this time. Review of Systems Review of Systems: All systems reviewed & are unremarkable except as noted in HPI & below Physical Exam Constitutional: well developed and well nourished; no acute distress Eyes: PERRL, conjunctivae normal, anicteric sclerae Neck: trachea midline Respiratory: normal respiratory effort, lungs clear to auscultation Cardiovascular: RRR, no murmur, no edema Gastrointestinal (Abdomen): normal bowel sounds, soft, nontender, no hepatosplenomegaly Skin: no rashes, warm and dry Psychiatric: Orientation: alert, oriented to person and cooperative; + not oriented to place and + not oriented to time Apperance: + disheveled Eye Contact: + fair eye contact Affect: euthymic affect Results & Data Results & Data ([facility]) Vital Signs (Past 12 Hours) Vital Signs Temp Pulse Resp BP Pulse Ox 05/18/21 06:10 36.6 C 74 17 155/74 H 98 (1) Dementia Dementia type: unspecified type
--- NOTE | 2021-05-18 18:55 | Billing Data ---
Date of Service May 18, 2021 Coding Level of Care Code 80354 Subseq Hosp Care Lvl 2
--- NOTE | 2021-05-18 20:58 | Billing Data ---
Date of Service May 18, 2021 Coding Level of Care Code 21249 Initial Inpt Care Lvl 3
[2021-05-18] MEDS: ACETAMINOPHEN 325 MG TAB PO PRN (21:10)
[2021-05-18] MEDS: MELATONIN 3 MG TAB PO PRN (21:11)
[2021-05-18] MEDS: NICOTINE 14 MG/24 HR PATCH TD SCH (22:22)
--- NOTE | 2021-05-19 06:36 | Electrocardiogram Report ---
Test Reason : Blood Pressure : / mmHG Vent. Rate : 075 BPM Atrial Rate : 075 BPM P-R Int : 116 ms QRS Dur : 074 ms QT Int : 412 ms P-R-T Axes : 073 023 054 degrees QTc Int : 460 ms Poor data quality, interpretation may be adversely affected Normal sinus rhythm with sinus arrhythmia Normal ECG When compared with ECG of 02-NOV-2020 13:44, Premature atrial complexes are no longer Present Confirmed by Blair Alamo ([id number]) on 05/19/2021 6:36:13 AM Referred By: [facility] Confirmed By:Blair Alamo
[2021-05-19] MEDS: cephALEXin 500 MG CAP PO SCH (08:07)
[2021-05-19] MEDS: NICOTINE 14 MG/24 HR PATCH TD SCH (08:07)
[2021-05-19] MEDS: VENLAFAXINE HCL XR 75 MG CAPXR PO SCH (08:08)
[2021-05-19] MEDS: CHOLECALCIFEROL 1,000 UNITS 25 MCG TAB PO SCH (08:08)
[2021-05-19] MEDS: DOCUSATE SODIUM 100 MG CAP PO SCH (08:08)
[2021-05-19] MEDS: BENZTROPINE MESYLATE 1 MG TAB PO SCH ×2 (08:08→20:38)
--- NOTE | 2021-05-19 18:04 | Hospitalist Progress Note ---
Date of Service May 19, 2021 Assessment & Plan (1) Weakness: Plan: Multiple Falls -Patient with multiple falls in the past 1 year, worsening per daughter no significant trauma but too weak to return safely to [facility] at this time - likely to need higher level of care -PT/OT eval and treat, case management working on placement Dementia, PTSD -Has been worsening over the past 1 year per daughter -Continue home Benztropine, Effexor, and Fluphenazine R foot Erythema -quickly resolved - ?doubt any infection - abx stopped, had about 5 days of treatment. follow - can resume if anything recurs but doubtful that it will. Dispo: safe on Med/Surg anticipate snf FEN: Regular diet DVT: SCDs Code: DNR/DNI (2) Falls: (3) Dementia: (4) Esophagitis: Admission and Anticipated Discharge Date Admission Date: May 18, 2021 Subjective no meaningful HPI or ROS. Review of Systems Review of Systems: Unobtainable due to cognitive status Physical Exam Physical Exam: gen awake alert disoriented nad heent nc at mmm breathing unlabored no accessory muscles good effort skin no rashes no pallor or icterus neuro no focal deficits Results & Data Results & Data ([facility]) Vital Signs (Past 12 Hours) Vital Signs Temp Pulse Resp BP Pulse Ox 05/19/21 15:21 97.7 F 79 18 154/95 H 100 05/19/21 07:22 97.9 F 72 16 145/74 H 96 PG Care Time/CCT Total # of Minutes Spent Total Time Spent with Patient: Total time spent is greater than 50% in coordination of care (as documented) at patient's floor/unit and/or counseling patient: Coding Level of Care Code 12208 Subseq Hosp Care Lvl 1 Diagnoses Weakness R53.1 Falls W19.XXXA Dementia F03.90 Dementia type: unspecified type Esophagitis K20.9 (1) Dementia Dementia type: unspecified type
[2021-05-19] MEDS: ACETAMINOPHEN 325 MG TAB PO PRN (20:38)
[2021-05-19] MEDS: MELATONIN 3 MG TAB PO PRN (20:38)
[2021-05-20] MEDS: NICOTINE 14 MG/24 HR PATCH TD SCH (08:15)
[2021-05-20] MEDS: CHOLECALCIFEROL 1,000 UNITS 25 MCG TAB PO SCH (08:16)
[2021-05-20] MEDS: VENLAFAXINE HCL XR 75 MG CAPXR PO SCH (08:16)
[2021-05-20] MEDS: BENZTROPINE MESYLATE 1 MG TAB PO SCH ×2 (08:16→20:57)
[2021-05-20] MEDS: DOCUSATE SODIUM 100 MG CAP PO SCH (08:18)
--- NOTE | 2021-05-20 10:55 | Hospitalist Progress Note ---
Date of Service May 20, 2021 Assessment & Plan (1) Weakness: Plan: Patient is a 75 year old male with PMHx COPD, Multiple Falls, Dementia, Anxiety, PTSD, who presents from [facility] for a fall on his L side in addition to being on the ground for 30 minutes before being found. Multiple Falls -Patient with multiple falls in the past 1 year, worsening per daughter -Likely require 24 hour care at this time which he currently does not have at [facility] -On arrival with L shoulder dislocation, no s/p reduction in the ED -CT thoracic and lumbar spine without acute fracture of the thoracic spine -CT Head negative for acute fracture or bleed -Discussed with family in regards to long-term care, interested in hospice -Palliative care states that he does not meet the criteria for hospice care for dementia. -PT/OT ordered. PT recommend discontinuing acute physical therapy while in the hospital as it will not decrease his risk for falls. Occupational Therapy recommends 24/7 care as he has been receiving prior to admission to the hospital. -Awaiting placement for a dementia [facility]. Dementia, PTSD -Has been worsening over the past 1 year per daughter -Continue home Benztropine, Effexor, and Fluphenazine R foot Erythema -Keflex discontinued -Uric acid within normal limits. Dispo: Med/Surg FEN: Regular diet DVT: SCDs Code: DNR/DNI (2) Falls: (3) Dementia: (4) Esophagitis: Admission and Anticipated Discharge Date Admission Date: May 18, 2021 Supervising Physician Co-Signing Physician Notes I personally examined the patient and verified all thompson points of history and exam, discussed case, and agree with decision making with Dr Saenz. No meaningful HPI or review of systems obtainable. has played Bridgefy toe w sitter Vitals noted, sleepign comfortably, no distress. HEENT normocephalic atraumatic mucous membranes moist. Breathing unlabored no accessory muscle use good effort. Skin shows no rashes no pallor or icterusmost notably there is still no erythema open lesions ulcers warmth etc. on either of his feet. Progressive dementia with multiple fallsappears to require higher level of care. case management working on this Question of cellulitis on his footdoubt that it completely resolved that quicklyto avoid accidental iatrogenic harmholding further antibiotics. Should there be any true erythema that occurs, we can resume antibiotics, but there really does not appear to be an indication at this time. Otherwise as above. Subjective Patient seen at bedside this morning. As usual difficulty obtaining HPI due to advanced dementia. States that nothing hurts right now and he is doing okay. Review of systems not obtainable. Review of Systems Review of Systems: Unobtainable due to cognitive status Physical Exam 2 Constitutional: well developed and well nourished; no acute distress Eyes: no scleral abnormality Neck: normal visual inspection and trachea midline Respiratory: normal respiratory effort, lungs clear to auscultation Cardiovascular: RRR, no murmur, no edema Gastrointestinal (Abdomen): normal bowel sounds, soft, nontender, no hepatosplenomegaly Psychiatric: Orientation: alert, oriented to person and cooperative; + not oriented to place and + not oriented to time Eye Contact: + fair eye contact Results & Data Results & Data ([facility]) Vital Signs (Past 12 Hours) Vital Signs Temp Pulse Resp BP BP Pulse Ox 05/20/21 07:30 36.4 C L 105 H 18 165/95 H 96 05/19/21 23:08 36.8 C 96 H 17 127/79 96 (1) Dementia Dementia type: unspecified type
--- NOTE | 2021-05-20 17:29 | Billing Data ---
Date of Service May 20, 2021 Coding Level of Care Code 75972 Subseq Hosp Care Lvl 1
[2021-05-21] MEDS: ACETAMINOPHEN 325 MG TAB PO PRN (02:15)
[2021-05-21] MEDS: MELATONIN 3 MG TAB PO PRN ×2 (02:15→21:20)
[2021-05-21] MEDS: CHOLECALCIFEROL 1,000 UNITS 25 MCG TAB PO SCH (08:52)
[2021-05-21] MEDS: NICOTINE 14 MG/24 HR PATCH TD SCH (08:52)
[2021-05-21] MEDS: DOCUSATE SODIUM 100 MG CAP PO SCH (08:53)
[2021-05-21] MEDS: BENZTROPINE MESYLATE 1 MG TAB PO SCH ×2 (08:53→21:15)
[2021-05-21] MEDS: VENLAFAXINE HCL XR 75 MG CAPXR PO SCH (08:53)
--- NOTE | 2021-05-21 12:57 | Hospitalist Progress Note ---
Date of Service May 21, 2021 Assessment & Plan (1) Weakness: Plan: Patient is a 75 year old male with PMHx COPD, Multiple Falls, Dementia, Anxiety, PTSD, who presents from [facility] for a fall on his L side in addition to being on the ground for 30 minutes before being found. Multiple Falls -Patient with multiple falls in the past 1 year, worsening per daughter -Likely require 24 hour care at this time which he currently does not have at [facility] -On arrival with L shoulder dislocation, no s/p reduction in the ED -CT thoracic and lumbar spine without acute fracture of the thoracic spine -CT Head negative for acute fracture or bleed -Discussed with family in regards to long-term care, interested in hospice -Palliative care states that he does not meet the criteria for hospice care for dementia. -PT/OT ordered. PT recommend discontinuing acute physical therapy while in the hospital as it will not decrease his risk for falls. Occupational Therapy recommends 24/7 care as he has been receiving prior to admission to the hospital. -Awaiting placement for a dementia rasmussen. Dementia, PTSD -Has been worsening over the past 1 year per daughter -Continue home Benztropine, Effexor, and Fluphenazine R foot Erythema -Keflex discontinued -Uric acid within normal limits. Dispo: Med/Surg FEN: Regular diet DVT: SCDs Code: DNR/DNI (2) Falls: (3) Dementia: (4) Esophagitis: Admission and Anticipated Discharge Date Admission Date: May 18, 2021 Supervising Physician Co-Signing Physician Notes I personally examined the patient and verified all thompson points of history and exam, discussed case, and agree with decision making with Dr Saenz. No meaningful HPI or review of systems obtainable from patient. Sitter notes that they took a walk in the [place], and he has had no acute issues. Vitals noted, sleepign comfortably, no distress. HEENT normocephalic atraumatic mucous membranes moist. Breathing unlabored no accessory muscle use good effort. Skin shows no rashes no pallor or icterus Progressive dementia with multiple fallsappears to require higher level of care. case management working on thisbut unfortunately appears placement will be somewhat difficult Question of cellulitis on his footdoubt that it completely resolved that quicklyto avoid accidental iatrogenic harmholding further antibiotics. Should there be any true erythema that occurs, we can resume antibiotics, but there really does not appear to be an indication at this time. Otherwise as above. Subjective Patient seen at bedside this morning. Eating breakfast this morning without difficulty. As usual difficulty obtaining HPI due to advanced dementia. States that nothing hurts right now and he is doing okay. Review of systems not obtainable. Review of Systems Review of Systems: Unobtainable due to cognitive status Physical Exam Constitutional: well developed and well nourished; no acute distress Eyes: PERRL, conjunctivae normal, anicteric sclerae no scleral abnormality Neck: normal visual inspection and trachea midline Respiratory: normal respiratory effort, lungs clear to auscultation Cardiovascular: RRR, no murmur, no edema Gastrointestinal (Abdomen): normal bowel sounds, soft, nontender, no hepatosplenomegaly Skin: no rashes, warm and dry Psychiatric: Orientation: alert, oriented to person and cooperative; + not oriented to place and + not oriented to time Apperance: + disheveled Eye Contact: + fair eye contact Affect: euthymic affect Results & Data Results & Data ([facility]) Vital Signs (Past 12 Hours) Vital Signs Temp Pulse Resp BP Pulse Ox 05/21/21 07:34 36.7 C 84 18 138/84 98 Resident Activity Tracking Resident Involvement: Resident Care Provided Care Provided: Adult Hospital Medicine (1) Dementia Dementia type: unspecified type
--- NOTE | 2021-05-21 17:58 | Billing Data ---
Date of Service May 21, 2021 Coding Level of Care Code 15121 Subseq Hosp Care Lvl 1
[2021-05-22] MEDS: ACETAMINOPHEN 325 MG TAB PO PRN ×3 (06:25→16:49)
[2021-05-22] MEDS: NICOTINE 14 MG/24 HR PATCH TD SCH (09:07)
[2021-05-22] MEDS: VENLAFAXINE HCL XR 75 MG CAPXR PO SCH (09:07)
[2021-05-22] MEDS: CHOLECALCIFEROL 1,000 UNITS 25 MCG TAB PO SCH (09:07)
[2021-05-22] MEDS: BENZTROPINE MESYLATE 1 MG TAB PO SCH ×2 (09:07→20:31)
[2021-05-22] MEDS: DOCUSATE SODIUM 100 MG CAP PO SCH (09:08)
--- NOTE | 2021-05-22 14:32 | Hospitalist Progress Note ---
Date of Service May 22, 2021 Assessment & Plan (1) Weakness: Plan: Patient is a 75 year old male with PMHx COPD, Multiple Falls, Dementia, Anxiety, PTSD, who presents from [facility] for a fall on his L side in addition to being on the ground for 30 minutes before being found. Multiple Falls -Patient with multiple falls in the past 1 year, worsening per daughter -Likely require 24 hour care at this time which he currently does not have at [facility] -On arrival with L shoulder dislocation, no s/p reduction in the ED -CT thoracic and lumbar spine without acute fracture of the thoracic spine -CT Head negative for acute fracture or bleed -Discussed with family in regards to long-term care, interested in hospice -Palliative care states that he does not meet the criteria for hospice care for dementia. -PT/OT ordered. PT recommend discontinuing acute physical therapy while in the hospital as it will not decrease his risk for falls. Occupational Therapy recommends 24/7 care as he has been receiving prior to admission to the hospital. -Awaiting placement for a dementia rasmussen. Dementia, PTSD -Has been worsening over the past 1 year per daughter -Continue home Benztropine, Effexor, and Fluphenazine R foot Erythema -Keflex discontinued -Uric acid within normal limits. Dispo: Med/Surg FEN: Regular diet DVT: SCDs Code: DNR/DNI (2) Falls: (3) Dementia: (4) Esophagitis: Admission and Anticipated Discharge Date Admission Date: May 18, 2021 Supervising Physician Co-Signing Physician Notes I personally examined the patient and verified all thompson points of history and exam, discussed case, and agree with decision making with Dr Saenz. No meaningful HPI or review of systems obtainable from patient. Vitals noted, sleepign comfortably, no distress. HEENT: normocephalic atraumatic mucous membranes moist. Breathing unlabored no accessory muscle use good effort. Skin shows no rashes no pallor or icterus Progressive dementia with multiple fallsappears to require higher level of care. case management working on thisbut unfortunately appears placement will be somewhat difficult. Patient will likely remain in the hospital into Monday. Question of cellulitis on his footdoubt that it completely resolved that quicklyto avoid accidental iatrogenic harmwill continue to hold further antibiotics. Otherwise as above. Subjective Patient seen at bedside this morning. Eating breakfast this morning without difficulty. As usual difficulty obtaining HPI due to advanced dementia. States that nothing hurts right now and he is doing okay. Review of systems not obtainable. Review of Systems Review of Systems: Unobtainable due to cognitive status Physical Exam Constitutional: well developed and well nourished; no acute distress Eyes: PERRL, conjunctivae normal, anicteric sclerae no scleral abnormality Neck: normal visual inspection and trachea midline Respiratory: normal respiratory effort, lungs clear to auscultation Cardiovascular: RRR, no murmur, no edema Gastrointestinal (Abdomen): normal bowel sounds, soft, nontender, no hepatosplenomegaly Skin: no rashes, warm and dry Psychiatric: Orientation: alert, oriented to person and cooperative; + not oriented to place and + not oriented to time Apperance: + disheveled Eye Contact: + fair eye contact Affect: euthymic affect Results & Data Results & Data ([facility]) Vital Signs (Past 12 Hours) Vital Signs Temp Pulse Resp BP Pulse Ox 05/22/21 06:58 36.2 C L 91 H 24 104/70 97 Resident Activity Tracking Resident Involvement: Resident Care Provided Care Provided: Adult Hospital Medicine (1) Dementia Dementia type: unspecified type
--- NOTE | 2021-05-22 19:08 | Billing Data ---
Date of Service May 22, 2021 Coding Level of Care Code 55928 Subseq Hosp Care Lvl 2
[2021-05-23] MEDS ORDERED: MoRPHine SULFATE 2 MG/ML CARP IV STA ×3 (05:27→22:40)
[2021-05-23] MEDS ORDERED: MoRPHine SULFATE 2 MG/ML CARP ONE (05:28)
--- NOTE | 2021-05-23 06:05 | Communication Note ---
Date of Service: May 23, 2021 Notified by nursing in regards to concerns of R shoulder dislocation. Bed alarm was not triggered so unlikely patient had fallen. Examined patient with arm in sling in a preferred flexed and internally rotated position. Attempted reduction of the shoulder with vertical traction/external rotation, Milch maneuver, and off the bed traction and external rotation of the scapula. Minimal movement, but no full reduction noted. Patient given 4mg IV morphine for pain control. Will order for shoulder XR now. Resident Activity Tracking Resident Involvement: Resident Care Provided and Information Systems Consultant Coverage Note Care Provided: Adult Hospital Medicine
--- NOTE | 2021-05-23 08:05 | XRay Report ---
XR shoulder RT min 2V routine CLINICAL HISTORY: suspected dislocation. Right shoulder pain COMPARISON STUDY: 05/17/2021 TECHNIQUE: 3 right shoulder views FINDINGS: Bones: Compared to the previous examination, there is a new oblique fracture present involving the pr oximal third of the humeral shaft. Old, healing fractures again seen involving the humeral head. Ther e is no evidence for dislocation of the humeral head in relation to the glenoid. However, there is a third-degree AC separation with depression of the acromial process in relation to the clavicle and wi dening of the coracoclavicular distance. There is no lytic or blastic lesion. Joints: Degenerative changes are present at the glenohumeral joint. The bones are in anatomic alignme nt. Soft tissues: There is no focal soft tissue abnormality. There is no radiopaque foreign body. IMPRESSION: 1. Interval development of an acute oblique fracture involving the proximal third of the humeral shaf t. 2. Third degree AC separation. 3. Old humeral head fracture. 4. No evidence for humeral head dislocation. ACT 112: Negative or not required by law. Electronically signed by: Wade Chavez M.D. 05/23/2021 8:04 AM
[2021-05-23] MEDS: ACETAMINOPHEN 325 MG TAB PO PRN (08:17)
[2021-05-23] MEDS: CHOLECALCIFEROL 1,000 UNITS 25 MCG TAB PO SCH (08:19)
[2021-05-23] MEDS: BENZTROPINE MESYLATE 1 MG TAB PO SCH ×2 (08:20→21:00)
[2021-05-23] MEDS: DOCUSATE SODIUM 100 MG CAP PO SCH (08:20)
[2021-05-23] MEDS: VENLAFAXINE HCL XR 75 MG CAPXR PO SCH (08:21)
[2021-05-23] MEDS: NICOTINE 14 MG/24 HR PATCH TD SCH (08:21)
--- NOTE | 2021-05-23 09:15 | Hospitalist Progress Note ---
Date of Service May 23, 2021 Assessment & Plan (1) Weakness: Plan: Patient is a 75 year old male with PMHx COPD, Multiple Falls, Dementia, Anxiety, PTSD, who presents from [facility] for a fall on his L side in addition to being on the ground for 30 minutes before being found. Multiple Falls -Patient with multiple falls in the past 1 year, worsening per daughter -Likely require 24 hour care at this time which he currently does not have at [facility] -On arrival with L shoulder dislocation, no s/p reduction in the ED -CT thoracic and lumbar spine without acute fracture of the thoracic spine -CT Head negative for acute fracture or bleed -Discussed with family in regards to long-term care, interested in hospice -Palliative care states that he does not meet the criteria for hospice care for dementia. -PT/OT ordered. PT recommend discontinuing acute physical therapy while in the hospital as it will not decrease his risk for falls. Occupational Therapy recommends 24/7 care as he has been receiving prior to admission to the hospital. -Awaiting placement for a dementia rasmussen. Right Humerus Fracture -Right shoulder x-ray revealed acute oblique humerus fracture at the proximal one third. -Etiology unknown. Could be due to unwitnessed fall, assisted mobility, etc. -Started morphine as needed for pain. -Ortho consulted, appreciate consult. Patient placed in splint by Ortho. They will continue to follow. Dementia, PTSD -Has been worsening over the past 1 year per daughter -Continue home Benztropine, Effexor, and Fluphenazine R foot Erythema -Keflex discontinued -Uric acid within normal limits. Dispo: Med/Surg FEN: Regular diet DVT: SCDs Code: DNR/DNI (2) Falls: (3) Dementia: (4) Esophagitis: (5) Right humeral fracture: Admission and Anticipated Discharge Date Admission Date: May 18, 2021 Supervising Physician Co-Signing Physician Notes I personally examined the patient and verified all thompson points of history and exam, discussed case, and agree with decision making with Dr Saenz. No meaningful HPI or review of systems obtainable from patient. Vitals noted, sleepign comfortably, no distress. HEENT: normocephalic atraumatic mucous membranes moist. Breathing unlabored no accessory muscle use good effort. Skin shows no rashes no pallor or icterus Progressive dementia with multiple fallsappears to require higher level of care. Patient overnight was found to have a deformity of his right shoulder. Initially overnight resident unable to reduce lesion. Xrays showed a fracture. Unknown cause of fracture, patient likely has osteoporosis. Ortho consulted: conservative management due to comorbidities. case management working on thisbut unfortunately appears placement will be somewhat difficult. Patient will likely remain in the hospital into Monday. Question of cellulitis on his footdoubt that it completely resolved that quicklyto avoid accidental iatrogenic harmwill continue to hold further antibiotics. Otherwise as above. Subjective Patient seen at bedside this morning. Overnight resident received a call regarding right shoulder pain. Patient has history of shoulder dislocations. Resident attempted to reduce based off of physical exam. After failing to relocate shoulder, rest in order shoulder x-ray which revealed a noncommunicating humerus fracture. Patient was placed into a sling and Ortho was consulted. It is hard to gauge if patient is in large amounts of pain as he is not speaking much today. No meaningful HPI or review of systems can be obtained from patient directly. Review of Systems Review of Systems: Unobtainable due to cognitive status Physical Exam Physical Exam: Patient's right arm is placed in a sling. Constitutional: well developed and well nourished; no acute distress Eyes: + anicteric sclerae Neck: normal visual inspection and trachea midline Respiratory: + tachypneic Auscultation: lungs clear to auscultation bilaterally Cardiovascular: RRR, no murmur, no edema Gastrointestinal (Abdomen): normal bowel sounds, soft, nontender, no hepatosplenomegaly Skin: no rashes, warm and dry Psychiatric: Orientation: oriented to person and cooperative; + not oriented to place and + not oriented to time Results & Data Results & Data ([facility]) Vital Signs (Past 12 Hours) Vital Signs Temp Pulse Resp BP Pulse Ox 05/23/21 08:18 37.1 C 108 H 18 172/84 H 93 05/23/21 06:25 110 H 185/85 H 05/23/21 06:20 36.9 C 117 H 20 212/86 H 93 (1) Dementia Dementia type: unspecified type
--- NOTE | 2021-05-23 09:50 | Communication Note ---
Date of Service: May 23, 2021 Please assess right distal radial pulse every hour to assess for vascular compromise due to humeral fracture.
[2021-05-23] MEDS: MoRPHine SULFATE 2 MG/ML CARP IV PRN ×2 (10:02→20:55)
--- NOTE | 2021-05-23 10:32 | Orthopedic Consultation ---
Date of Consultation May 23, 2021 Assessment & Plan (1) Right humeral fracture: Right proximal humerus fracture, displaced, closed, initial visit, approximately 6 weeks status post right greater tuberosity fracture, non- displaced. In addition grade V right AC separation. Acute. Unclear if occult fracture displaced with patient mobilization or due to patient self movement or completely new fracture. Recommend conservative treatment. RICE. Short course of anti-inflammatories, alternating with Tylenol as needed for pain. Placed in coaptation splint, patient felt better after. To consider switching to Figueroa fracture brace in 1-2 weeks. Sling No lifting RUE. Recline position Follow-up in as an outpatient in 1 week with x-rays. Will continue to follow while in hospital. Continue care per primary service. Present on Admission?: No (2) Dislocation of shoulder, left, closed: RICE. Short course of anti-inflammatories, alternating with Tylenol as needed for pain. Sling for comfort Present on Admission?: Yes History of Present Illness Reason for Consultation: Right proximal humerus fracture Requesting Physician: Yaniv Nelson MD Attending Physician: Tl Rangel History of Present Illness Patient is a 75 year old male from [facility], with PMHx COPD, Multiple Falls, Dementia, Anxiety, PTSD, who was admitted for a fall on his L side 05/17/2021. Patient had left shoulder dislocation reduced in ED. Patient had a non-displaced greater tuberosity fracture of the right proximal humerus 04/12/2021. Radiographs of the right humerus from 05/17/21 showed the previous right greater tuberosity fracture healing. No report of fall while in house. Patient now with right proximal humeral shaft fracture and grade V AC separation. Allergies Allergy/AdvReac Type Severity Reaction Status Date / Time No Known Allergies Allergy Verified 05/17/21 15:58 Home Medications Medication Instructions Recorded Confirmed Type benztropine 2 mg tablet 2 mg PO BID #20 tab 05/26/20 05/17/21 Rx cetirizine 10 mg tablet 10 mg PO QAM 11/02/20 05/17/21 History docusate sodium 100 mg capsule 100 mg PO QAM 11/02/20 05/17/21 History fluphenazine HCl 10 mg tablet 10 mg PO BID 11/02/20 05/17/21 History multivitamin 1 tab PO QAM 11/02/20 05/17/21 History venlafaxine 75 mg capsule,extended 225 mg PO QAM 11/02/20 05/17/21 History release 24 hr acetaminophen 500 mg tablet 1,000 mg PO Q6H PRN MDD 6 TABS 05/17/21 05/17/21 History cephalexin 500 mg capsule 500 mg PO BID 05/17/21 05/17/21 History cholecalciferol (vitamin D3) 125 125 mcg PO DAILY 05/17/21 05/17/21 History mcg (5,000 unit) capsule Patient History Medical History Acute urinary retention COPD (chronic obstructive pulmonary disease) Dementia Duodenal ulcer Elevated CK-MB level Esophageal reflux Esophagitis PTSD (post-traumatic stress disorder) Weakness Surgical History No pertinent past surgical history Social History Smoking Status: Former smoker Cigarettes Per Day: 10; Second Hand Exposure: No; Hx Alcohol Use: No Hx Substance Use: No Preferred Language: Turkmen Communication Ability: Effective Communication Ability Comment: unsure of intellectual ability, Hx of dementia Operator Command Support Systems Required: No Beliefs That Will Affect Care: None marital status: / Current Living Situation: Personal Care Facility Current Living Situation Comment: lives with daughter and son in law Other Information That Helps Us Care for You: No Feels Safe at Home: Declines to Answer Assistive Devices: None Review of Systems Review of Systems: Unobtainable due to cognitive status Physical Exam Physical Exam: Unable to assess motor or sensation due to patients cognitive state. 2+ radial pulse bilaterally. RUE: + tenders to palpation proximal humerus and pain with gentle motion of upper arm. No pain with gentle ROM of the elbow. LUE: + ecchymosis upper arm. No pain with gentle ROM of the shoulder or elbow. Results & Data ([facility]) Vital Signs (Past 12 Hours) Vital Signs Temp Pulse Resp BP Pulse Ox 05/23/21 08:18 37.1 C 108 H 18 172/84 H 93 05/23/21 06:25 110 H 185/85 H 05/23/21 06:20 36.9 C 117 H 20 212/86 H 93 Diagnostic Findings XR shoulder RT min 2V routine CLINICAL HISTORY: suspected dislocation. Right shoulder pain COMPARISON STUDY: 05/17/2021 TECHNIQUE: 3 right shoulder views FINDINGS: Bones: Compared to the previous examination, there is a new oblique fracture present involving the proximal third of the humeral shaft. Old, healing fractures again seen involving the humeral head. There is no evidence for dislocation of the humeral head in relation to the glenoid. However, there is a third-degree AC separation with depression of the acromial process in relation to the clavicle and widening of the coracoclavicular distance. There is no lytic or blastic lesion. Joints: Degenerative changes are present at the glenohumeral joint. The bones are in anatomic alignment. Soft tissues: There is no focal soft tissue abnormality. There is no radiopaque foreign body. IMPRESSION: 1. Interval development of an acute oblique fracture involving the proximal third of the humeral shaft. 2. Third degree AC separation. My impression is grade V AC separation 3. Old humeral head fracture. 4. No evidence for humeral head dislocation.
--- NOTE | 2021-05-23 20:11 | Billing Data ---
Date of Service May 23, 2021 Coding Level of Care Code 85102 Subseq Hosp Care Lvl 2
--- NOTE | 2021-05-23 22:39 | XRay Report ---
XR KUB/Abdomen 1 view CLINICAL HISTORY: abdominal pain. COMPARISON STUDY: No previous studies for comparison. TECHNIQUE: Single view of the abdomen. FINDINGS: The bowel gas pattern is within normal limits without evidence for dilatation or obstruction. However , there is mild to moderate fecal stasis impaction and fecal stasis without evidence for obstruction. There is no evidence for organomegaly or gross intra-abdominal mass. No abnormal calcifications are seen along the course of the urinary tracts bilaterally. No acute osseous pathology. The lung bases a re clear. IMPRESSION: 1.Mild to moderate fecal impaction and fecal stasis without evidence for obstruction. ACT 112: Negative or not required by law. Electronically signed by: Wade Chavez M.D. 05/23/2021 10:38 PM
[2021-05-23] MEDS ORDERED: bisacodyL 10 MG SUPP PR STA (22:40)
[2021-05-23] MEDS ORDERED: SODIUM CHLORIDE 0.9% 1000ML 500 ML IV ONE (22:40)
[2021-05-23] MEDS ORDERED: SIMETHICONE 80 MG CHEW PO ONE (22:42)
[2021-05-24] MEDS: ACETAMINOPHEN 325 MG TAB PO PRN ×3 (02:08→14:33)
[2021-05-24] MEDS: MoRPHine SULFATE 2 MG/ML CARP IV PRN ×3 (07:43→23:14)
--- NOTE | 2021-05-24 08:54 | Orthopedic Progress Note ---
Date of Service May 24, 2021 Assessment & Plan (1) Right humeral fracture: Plan: Right proximal humerus fracture, displaced, closed, approximately 6 weeks status post right greater tuberosity fracture, non-displaced. In addition grade V right AC separation. Acute. Unclear if occult fracture displaced with patient mobilization/transfer or due to patient self movement or completely new fracture. Recommend conservative treatment. RICE. Short course of anti-inflammatories, alternating with Tylenol as needed for pain. Placed in coaptation splint, patient feels better. Switch to Figueroa fracture brace when available. Sling for comfort No lifting RUE. Recliner position Follow-up in as an outpatient in 1 week with x-rays. Will continue to follow while in hospital. Continue care per primary service. Present on Admission?: No (2) Dislocation of shoulder, left, closed: Plan: RICE. Short course of anti-inflammatories, alternating with Tylenol as needed for pain. Sling for comfort Present on Admission?: Yes Admission and Anticipated Discharge Date Admission Date: May 18, 2021 Subjective No complaints Review of Systems Review of Systems: Unobtainable due to cognitive status Physical Exam Physical Exam: Unable to assess motor or sensation due to patients cognitive state. 2+ radial pulse bilaterally. RUE: Coaptation splint and sling in place. Patient did comment his arm was comfortable. LUE: + ecchymosis upper arm. No pain with gentle ROM of the shoulder or elbow. Results & Data ([facility]) Vital Signs (Past 12 Hours) Vital Signs Temp Pulse Resp BP Pulse Ox 05/24/21 07:16 36.4 C L 98 H 20 178/96 H 99 05/24/21 05:05 98 H 16 94 05/23/21 22:02 130 H 19 172/99 H 94
[2021-05-24] MEDS ORDERED: MoRPHine SULFATE 2 MG/ML CARP IV STA (10:01)
[2021-05-24] MEDS: VENLAFAXINE HCL XR 75 MG CAPXR PO SCH (10:03)
[2021-05-24] MEDS: POLYETHYLENE (MIRALAX) 17 GM PACK PO SCH (10:04)
[2021-05-24] MEDS: NICOTINE 14 MG/24 HR PATCH TD SCH (10:04)
[2021-05-24] MEDS: DOCUSATE SODIUM 100 MG CAP PO SCH (10:04)
[2021-05-24] MEDS: CHOLECALCIFEROL 1,000 UNITS 25 MCG TAB PO SCH (10:04)
[2021-05-24] MEDS: BENZTROPINE MESYLATE 1 MG TAB PO SCH ×2 (10:05→21:20)
--- NOTE | 2021-05-24 10:05 | Electrocardiogram Report ---
Test Reason : Blood Pressure : / mmHG Vent. Rate : 126 BPM Atrial Rate : 126 BPM P-R Int : 128 ms QRS Dur : 070 ms QT Int : 314 ms P-R-T Axes : 074 064 075 degrees QTc Int : 454 ms Sinus tachycardia with Premature supraventricular complexes Otherwise normal ECG When compared with ECG of 17-MAY-2021 13:50, Premature supraventricular complexes are now Present Vent. rate has increased BY [address] now depressed in Anterior leads Confirmed by Sylvain Rosenbaum ([id number]) on 05/24/2021 10:05:06 AM Referred By: [facility] Confirmed By:Vern Rosenbaum
--- NOTE | 2021-05-24 13:37 | Hospitalist Progress Note ---
Date of Service May 24, 2021 Assessment & Plan (1) Weakness: Plan: Patient is a 75 year old male with PMHx COPD, Multiple Falls, Dementia, Anxiety, PTSD, who presents from [facility] for a fall on his L side in addition to being on the ground for 30 minutes before being found. Multiple Falls -Patient with multiple falls in the past 1 year, worsening per daughter -Likely require 24 hour care at this time which he currently does not have at [facility] -On arrival with L shoulder dislocation, no s/p reduction in the ED -CT thoracic and lumbar spine without acute fracture of the thoracic spine -CT Head negative for acute fracture or bleed -Discussed with family in regards to long-term care, interested in hospice -Palliative care states that he does not meet the criteria for hospice care for dementia. Patient has a fast 7 score of 6C -PT/OT ordered. PT recommend discontinuing acute physical therapy while in the hospital as it will not decrease his risk for falls. Occupational Therapy recommends 24/7 care as he has been receiving prior to admission to the hospital. -Patient is accepted at [facility]. All goes well, discharge tomorrow morning. Right Humerus Fracture -Right shoulder x-ray revealed acute oblique humerus fracture at the proximal one third. -Etiology unknown. Could be due to unwitnessed fall, assisted mobility, etc. -Started morphine as needed for pain. -Ortho consulted, appreciate consult. Patient placed in splint by Ortho. They will continue to follow. Dementia, PTSD -Has been worsening over the past 1 year per daughter -Continue home Benztropine, Effexor, and Fluphenazine R foot Erythema -Keflex discontinued -Uric acid within normal limits. Dispo: Med/Surg FEN: Regular diet DVT: SCDs Code: DNR/DNI (2) Falls: (3) Dementia: (4) Esophagitis: (5) Right humeral fracture: Admission and Anticipated Discharge Date Admission Date: May 18, 2021 Supervising Physician Co-Signing Physician Notes I personally examined the patient and verified all thompson points of history and exam, discussed case, and agree with decision making with Dr Saenz. Exam 173/22, 92, 20, 36.5, 90% on room air Sleeping rather groggy upon exam. Does not seem to be in any distress. Data A KUB from 05/23 shows mild to moderate fecal impaction and fecal stasis without evidence of obstruction Progressive dementia with multiple fallsappears to require higher level of care. Right humeral fracture, displaced, closed Pain control Conservative care with regards to fracture Bowel regiemen Pending placement Else per resident physician documentation Subjective Patient seen at bedside this morning. Patient was asleep and groggy likely due to morphine administration for pain. Not responding verbally at this time. No meaningful HPI or review of systems was obtained. Review of Systems Review of Systems: Unobtainable due to cognitive status Physical Exam Constitutional: well developed, well nourished and + frail appearing; no acute distress Eyes: + anicteric sclerae Neck: normal visual inspection and trachea midline Respiratory: normal respiratory effort, lungs clear to auscultation Cardiovascular: RRR, no murmur, no edema Gastrointestinal (Abdomen): normal bowel sounds, soft, nontender, no hepatosplenomegaly Musculoskeletal: Patient in a sling with splint in place. Psychiatric: Orientation: oriented to person and cooperative; + not alert, + not oriented to place and + not oriented to time Results & Data Results & Data ([facility]) Vital Signs (Past 12 Hours) Vital Signs Temp Pulse Resp BP Pulse Ox 05/24/21 07:16 36.4 C L 98 H 20 178/96 H 99 05/24/21 05:05 98 H 16 94 Resident Activity Tracking Resident Involvement: Resident Care Provided Care Provided: Adult Hospital Medicine (1) Dementia Dementia type: unspecified type
[2021-05-24] MEDS: MELATONIN 3 MG TAB PO PRN (21:23)
[2021-05-25] MEDS ORDERED: PANTOprazole 40 MG in SYRINGE 0 ML IV ONE (02:00)
[2021-05-25] MEDS: MoRPHine SULFATE 2 MG/ML CARP IV PRN (06:18)
--- NOTE | 2021-05-25 10:28 | Orthopedic Progress Note ---
Date of Service May 25, 2021 Assessment & Plan (1) Right humeral fracture: Plan: Right proximal humerus fracture, displaced, closed, approximately 6 weeks status post right greater tuberosity fracture, non-displaced. In addition grade V right AC separation. Acute. Unclear if occult fracture displaced with patient mobilization/transfer or due to patient self movement or completely new fracture. Recommend conservative treatment. RICE. Short course of anti-inflammatories, alternating with Tylenol as needed for pain. Placed in coaptation splint, patient feels better. Switch to Figueroa fracture brace when available. Sling for comfort No lifting RUE. Recliner position Follow-up in as an outpatient in 1 week with x-rays. Will continue to follow while in hospital. Continue care per primary service. I, Dr. Nelson, saw and examined the patient and discussed the management with my PA. I reviewed my PAs note and agree with the documented findings and the plan of care I developed. (2) Dislocation of shoulder, left, closed: Plan: RICE. Short course of anti-inflammatories, alternating with Tylenol as needed for pain. Sling for comfort Admission and Anticipated Discharge Date Admission Date: May 18, 2021 Subjective This 75-year-old male Patient seen this morning following dislocation of his left shoulder and a fracture of his right proximal humerus. While I was in the room patient was being evaluated by one of the medicine providers as well as 2 nurses. They stated that his heart rate was into the upper 140s and his O2 saturation had dropped to 88%'s after developing hiccups this morning. Patient was unarousable. His Figueroa brace was in place on the right shoulder and the right upper extremity was not in a sling. Review of Systems Review of Systems: Unobtainable due to reduced consciousness Physical Exam Physical Exam: Examination of the patient's upper extremities not able to be performed due to his level of consciousness. I deferred care to the medicine service to deal with his acute issues. Results & Data ([facility]) Vital Signs (Past 12 Hours) Vital Signs Temp Pulse Resp BP Pulse Ox 05/25/21 07:28 36.5 C 152 H 22 167/88 H 90 05/24/21 22:55 36.9 C 134 H 20 161/79 H 92 Laboratory Results 11/30/21 11/30/21 11/30/21 Range/Units 10:20 08:30 00:45 POC Glucose 116 H 118 H (70-99) mg/dl SARS-CoV-2, RNA, NAAT NEGATIVE (NEGATIVE)
[2021-05-25] MEDS ORDERED: METOCLOPRAMIDE HCL INJ 5 MG/ML 2 ML VIAL IV ONE (10:32)
[2021-05-25] MEDS ORDERED: METOCLOPRAMIDE HCL INJ 5 MG/ML 2 ML VIAL ONE (10:36)
[2021-05-25] MEDS ORDERED: MoRPHine SULFATE 2 MG/ML CARP IV STA (10:39)
[2021-05-25] MEDS ORDERED: OPTIRAY 320 125ml IV ONE (11:30)
--- NOTE | 2021-05-25 11:54 | CT Scan Report ---
CT ANGIOGRAM OF THE CHEST CLINICAL HISTORY: Hypoxia. COMPARISON STUDY: Chest CT dated 05/17/2021 and 08/27/2015. TECHNIQUE: Following the IV administration of 120 cc of Optiray 320, CT angiogram of the chest was pe rformed from the upper abdomen to the thoracic inlet utilizing the pulmonary embolus protocol. Images are reviewed in the axial, sagittal, and coronal planes. 3-D MIPS images are created and assessed. I V contrast was administered without complication. A dose lowering technique was utilized adhering to the principles of ALARA. Examination is severely degraded by motion artifact, as well as by streak a rtifact from the right arm which could not be elevated above the chest. CT DOSE: 315.10 mGy.cm FINDINGS: Thyroid: Imaged portions of the thyroid gland are normal in size and attenuation. Thoracic aorta: There is atherosclerotic calcification of the thoracic aorta, which is normal in caleb raul and demonstrates standard 3-vessel arch anatomy. No dissection is seen. Pulmonary vasculature: The pulmonary trunk is normal in caliber. There are no filling defects identif ied in main, lobar, or proximal segmental pulmonary branches to suggest pulmonary embolus. Evaluation of the segmental and subsegmental branches is significantly degraded by motion artifact. Heart: The heart is normal in size and without pericardial effusion. The coronary arteries are densel y calcified. Lungs and pleural spaces: Evaluation of the lung parenchyma is degraded by motion artifact. Emphysema tous change is similar to previous. There is volume loss in the right lung. There is no airspace cons olidation typical for pneumonia or pleural effusion. The trachea appears clear. Significant wall thic kening is noted within the right mainstem bronchus as well as within the right middle and lower lobe airways. Mediastinum: There is no mediastinal lymphadenopathy. Iram: Clear. Axillae: There is no axillary lymphadenopathy. Upper abdomen: There is a small hiatal hernia. Calcified granulomas are noted in the spleen. The visu alized kidneys demonstrate cortical atrophy and renovascular calcifications. Skeletal structures: The skeletal structures are osteopenic. No lytic or blastic bony lesions are see n. There is a subacute/healing fracture of the right humeral head and neck, as well as subacute/heali ng bilateral rib fractures. Degenerative change and kyphoscoliosis are noted throughout the thoracic spine. Soft tissues: A 2.5 cm sebaceous cyst is noted in the right upper back on image #[id number]. IMPRESSION: 1. The examination is severely degraded by streak and motion artifact. 2. There is no evidence of central pulmonary embolus in the main, lobar, or proximal segmental pulmon staci arteries. 3. Emphysema. 4. There is no airspace consolidation typical for pneumonia or pleural effusion. 5. There is significant circumferential wall thickening identified in the right mainstem bronchus as well as the right middle and lower lobe airways. This is new from 05/17/2021 and likely on an infecti ous/inflammatory basis. Clinical correlation will be required. 6. There are subacute fractures of the right proximal humerus and several bilateral ribs. 7. Additional findings as above. ACT 112: Negative or not required by law. Electronically signed by: Augustin Garcia M.D. 05/25/2021 11:53 AM
[2021-05-25] MEDS: DOCUSATE SODIUM 100 MG CAP PO SCH (12:13)
[2021-05-25] MEDS: CHOLECALCIFEROL 1,000 UNITS 25 MCG TAB PO SCH (12:13)
[2021-05-25] MEDS: BENZTROPINE MESYLATE 1 MG TAB PO SCH ×2 (12:13→20:27)
[2021-05-25] MEDS: VENLAFAXINE HCL XR 75 MG CAPXR PO SCH (12:14)
[2021-05-25] MEDS: POLYETHYLENE (MIRALAX) 17 GM PACK PO SCH (12:14)
[2021-05-25] MEDS: NICOTINE 14 MG/24 HR PATCH TD SCH (12:14)
[2021-05-25] MEDS ORDERED: chlorproMAZINE HCL 25 MG/ML AMP IM STA (12:56)
[2021-05-25] MEDS ORDERED: chlorproMAZINE HCL 25 MG/ML AMP IM ONE (13:30)
[2021-05-25 13:36] LABS: Basophils # (auto) 0.01 K/uL (0-0.2); Basophils % (auto) 0.1 %; Hematocrit (blood only) 43.2 % (42-52); Hemoglobin 13.9 g/dL (14.0-18.0); Immature Granulocytes # (auto) 0.06 K/uL (0.00-0.02); Immature Granulocytes % (auto) 0.4 %; Lymphocytes # (auto) 1.02 K/uL (1.2-3.4); Lymphocytes % (auto) 6.6 %; Mean Corpuscular Hemoglobin 30.9 pg (25-34); Mean Corpuscular Hgb Conc 32.2 g/dL (32-36); Mean Platelet Volume 11.3 fL (7.4-10.4); Monocytes # (auto) 0.86 K/uL (0.11-0.59); Monocytes % (auto) 5.5 %; Neutrophils # (auto) 13.57 K/uL (1.4-6.5); Neutrophils % (auto) 87.4 %; Platelet Count 262 K/uL (130-400); RDW Coefficient of Variation 13.5 % (11.5-14.5); RDW Standard Deviation 46.8 fL (36.4-46.3); White Blood Count 15.52 K/uL (4.8-10.8)
[2021-05-25 13:56] LABS: Albumin Level 2.9 gm/dl (3.4-5.0); Calcium 9.2 mg/dl (8.5-10.1); Potassium 4.6 mmol/L (3.5-5.1)
[2021-05-25 14:06] LABS: Albumin Globulin Ratio 0.6 (0.9-2); BUN Creatinine Ratio 26.4 (10-20); Bilirubin,Total 0.7 mg/dl (0.2-1); Creatinine Clr Calc Pharmacy 47.4 ml/min; Est GFR (African American) 74.4 ml/min; Est GFR (Non-African American) 64.2 ml/min; Globulin 4.5 gm/dl (2.5-4.0); Total Protein 7.4 gm/dl (6.4-8.2)
[2021-05-25] MEDS ORDERED: SODIUM CHLORIDE 0.9% 1000ML 1,000 ML IV ONE (16:10)
[2021-05-25] MEDS ORDERED: ACETAMINOPHEN 10MG/ML PEDIATRIC DOSING IV STA (16:18)
[2021-05-25 17:01] LABS: Appearance Urine Clear (Clear); Bacteria Urine Automated Negative (Negative); Bilirubin Urine Negative (Negative); Blood Urine Negative (Negative); Cast Urine Automated 0 /lpf (0-5); Color Urine Dark Yellow; Epithelial Cell Urine Auto 0-5 /lpf (0-5); Glucose Urine UA Negative (Negative); Ketones Urine 1+ (Negative); Leukocyte Esterase Urine Negative (Negative); Nitrite Urine Negative (Negative); Protein Urine 1+ (Negative); RBC Urine Automated 0-4 /hpf (0-4); Specific Gravity Urine > 1.045 (1.000-1.030); Urobilinogen Urine Negative (Negative)
[2021-05-25] MEDS ORDERED: Heparin IV Adult Wt-Based Standard *NO* Bolus Protocol ONE (17:14)
[2021-05-25] MEDS ORDERED: METOPROLOL TARTRATE 1 MG/ML VIAL IV PRN ×2 (17:28→17:42)
--- NOTE | 2021-05-25 17:33 | Electrocardiogram Report ---
Test Reason : Blood Pressure : / mmHG Vent. Rate : 148 BPM Atrial Rate : 148 BPM P-R Int : 124 ms QRS Dur : 068 ms QT Int : 336 ms P-R-T Axes : 060 035 067 degrees QTc Int : 527 ms Sinus tachycardia Abnormal ECG When compared with ECG of 23-MAY-2021 22:27, Premature supraventricular complexes are no longer Present ST elevation has replaced ST depression in Anterior leads Confirmed by Sylvain Rosenbaum ([id number]) on 05/25/2021 5:33:29 PM Referred By: [facility] Confirmed By:Vern Rosenbaum
[2021-05-25] MEDS ORDERED: HEPARIN SODIUM/DEXTROSE 25,000 UNITS/500 ML BAG IV SCH (17:45)
[2021-05-25] MEDS: METOPROLOL TARTRATE 1 MG/ML VIAL IV PRN ×7 (18:02→23:19)
--- NOTE | 2021-05-25 18:13 | Hospitalist Progress Note ---
Date of Service May 25, 2021 Assessment & Plan (1) Weakness: Plan: Patient is a 75 year old male with PMHx COPD, Multiple Falls, Dementia, Anxiety, PTSD, who presents from [facility] for a fall on his L side in addition to being on the ground for 30 minutes before being found. STEMI -Likely anterior myocardial infarction based on EKG -Troponin of 9.1 -Consulted cardiology: Recommended medical management at this time -Began beta-binh, morphine, Oxygen, heparin drip, and Nitropaste Respiratory Distress -Unsure of origin, was stable on room air this morning with sudden onset of respiratory distress without known insult. -CTA performed ruled out PE in main pulmonary vasculature -Originally thought to be due to frequent and aggressive hiccups -Hiccups were treated with Protonix, Reglan, and Thorazine -Unsure if if actually hiccups or odd, struggling respiration -Currently on oxygen mask at 5 L saturating at 94% Multiple Falls -Patient with multiple falls in the past 1 year, worsening per daughter -Likely require 24 hour care at this time which he currently does not have at [facility] -On arrival with L shoulder dislocation, no s/p reduction in the ED -CT thoracic and lumbar spine without acute fracture of the thoracic spine -CT Head negative for acute fracture or bleed -Discussed with family in regards to long-term care, interested in hospice -Palliative care states that he does not meet the criteria for hospice care for dementia. Patient has a fast 7 score of 6C -PT/OT ordered. PT recommend discontinuing acute physical therapy while in the hospital as it will not decrease his risk for falls. Occupational Therapy recommends 24/7 care as he has been receiving prior to admission to the hospital. -Patient is accepted at [facility]. All goes well, discharge tomorrow morning. Right Humerus Fracture -Right shoulder x-ray revealed acute oblique humerus fracture at the proximal one third. -Etiology unknown. Could be due to unwitnessed fall, assisted mobility, etc. -Started morphine as needed for pain. -Ortho consulted, appreciate consult. Patient placed in splint by Ortho. They will continue to follow. Dementia, PTSD -Has been worsening over the past 1 year per daughter -Continue home Benztropine, Effexor, and Fluphenazine R foot Erythema -Keflex discontinued -Uric acid within normal limits. Dispo: PCU FEN: Regular diet DVT: Heparin drip Code: DNR/DNI (2) Falls: (3) Dementia: (4) Esophagitis: (5) Right humeral fracture: Admission and Anticipated Discharge Date Admission Date: May 18, 2021 Supervising Physician Co-Signing Physician Notes I personally examined the patient and verified all thompson points of history and exam, discussed case, and agree with decision making with Dr Saenz. Patient with what appeared to be persistent hiccups this morning, along with a new oxygen requirement and persistent tachycardia. Upon exam, patient would direct attention to me if I called his name loudly, but would not answer questions. Able to keep saturations > 93% with [address] done to exclude PE - negative, although thickening noted of the right bronchus, uncertain significance. Subsequent EKG consistent with lateral wall ischemia, and troponin found to be elevated. Exam VS as noted CV tachycardic Lungs are difficult to auscultate due to condition Data WBC 12.3 HgB 12.8 Sodium 146, BUN 29, Cr 1.11 AST 55 Alk Phos 131 Troponin 9.14 Procal negative STEMI Suspect AL a result of primary pulmonary process leading to increased oxygen demand and tachycardia, although history is difficult to piece together as the patient is essentially non-verbal Patient with end-stage dementia with previous discussion concerning transition to hospice care. Given overall picture, patient is not a candidate for cardiov ascular intervention. Will treat medically - anticoagulation, beta binh, NTG, morphine Serial troponin to peak Resting echo CXR now and in AM - watch for flash PE, low threshold for diuretic if exam warrants Question Aspiration Unasyn Repeat CXR in AM Progressive dementia with multiple fallsappears to require higher level of care Right humeral fracture, displaced, closed Dementia Pain control Pending placement Else per resident physician documentation Subjective Overnight patient was seen for aggressive pickups for which Protonix was started without improvement. Patient seen first thing in the morning after receiving a page stating that patient was in respiratory distress and was having what sounded like hiccups that were very frequent and intense. He started desaturating very rapidly going from breathing at 92% on room air to low 70s to high 60s. He was put on oxygen mask at 8 L before his O2 saturations would go above 90%. His heart rate was tachycardic in the 150s consistently throughout the morning. He does respond to name if yelled loudly by opening his eyes, but is otherwise nonresponsive. Review of Systems Review of Systems: Unobtainable due to cognitive status and Unobtainable due to reduced consciousness Physical Exam Constitutional: + acute distress and + frail appearing Eyes: + anicteric sclerae Neck: normal visual inspection and trachea midline Respiratory: + respiratory distress, + labored breathing, + retractions, + uses accessory muscles and + tachypneic Cardiovascular: Rate/Rhythm: regular rhythm and + tachycardic Skin: Clammy skin Psychiatric: Eye Contact: + poor eye contact Results & Data Results & Data ([facility]) Vital Signs (Past 12 Hours) Vital Signs Temp Pulse Pulse Resp BP Pulse Ox 05/25/21 16:21 36.3 C L 05/25/21 15:33 150 H 05/25/21 15:13 149 H 18 135/83 94 05/25/21 14:39 37.1 C 150 H 22 115/77 93 05/25/21 11:50 137 H 28 H 171/111 H 97 05/25/21 07:28 36.5 C 152 H 22 167/88 H 90 (1) Dementia Dementia type: unspecified type
--- NOTE | 2021-05-25 18:18 | XRay Report ---
XR chest 1V portable HISTORY: Shortness of breath. assess for pulmonary edema COMPARISON: Chest 04/12/2021. FINDINGS: There are low lung volumes. No pneumothorax. No pleural fusions. The heart is normal in siz e. There is mild central pulmonary vascular congestion without overt edema. Old, healed bilateral rib fractures. There is a left anterior shoulder dislocation. Healing/healed right humeral head fracture . IMPRESSION: 1. Mild central pulmonary vascular congestion without overt edema. 2. Left anterior shoulder dislocation. 3. Healing/healed right humeral head fracture. 4. Healing left anterior rib fractures. ACT 112: Negative or not required by law. Electronically signed by: Moreno Han M.D. 05/25/2021 6:17 PM
[2021-05-25] MEDS: AMPICILLIN/SULBACTAM SOD 1,500 MG in 0.9 % SODIUM CHLORIDE 100 ML IV SCH (18:26)
[2021-05-25 19:06] LABS: INR 1.1 (0.9-1.1); Partial Thromboplastin Time 25.7 Seconds (21.0-31.0); Prothrombin Time 11.3 Seconds (9.0-12.0)
[2021-05-25 19:10] LABS: Hematocrit (blood only) 39.9 % (42-52); Hemoglobin 12.8 g/dL (14.0-18.0); Immature Granulocytes # (auto) 0.01 K/uL (0.00-0.02); Immature Granulocytes % (auto) 0.1 %; Lymphocytes # (auto) 1.06 K/uL (1.2-3.4); Lymphocytes % (auto) 8.6 %; Mean Corpuscular Hemoglobin 31.1 pg (25-34); Mean Corpuscular Volume 97.1 fL (80-100); Mean Platelet Volume 11.5 fL (7.4-10.4); Monocytes # (auto) 0.38 K/uL (0.11-0.59); Monocytes % (auto) 3.1 %; Neutrophils # (auto) 10.93 K/uL (1.4-6.5); Neutrophils % (auto) 88.2 %; Platelet Count 217 K/uL (130-400); RDW Coefficient of Variation 13.5 % (11.5-14.5); RDW Standard Deviation 47.7 fL (36.4-46.3); Red Blood Count 4.11 M/uL (4.7-6.1); White Blood Count 12.38 K/uL (4.8-10.8)
[2021-05-25 19:13] LABS: Mean Corpuscular Hgb Conc 32.1 g/dL (32-36)
[2021-05-25] MEDS ORDERED: FUROSEMIDE INJ 20 MG/2 ML VIAL IV ONE (20:10)
[2021-05-25] MEDS: NITROGLYCERIN 2% OINTMENT 30GM TUBE EXT SCH ×2 (20:25→23:19)
--- NOTE | 2021-05-25 20:46 | XRay Report ---
XR chest 1V portable HISTORY: Shortness of breath. increased oxygen demand COMPARISON: Chest 05/25/2021. FINDINGS: No pneumothorax. No pleural effusions. The heart is normal in size. There is a small patchy density at the base the right lower lobe. No evidence for pulmonary edema. Left anterior shoulder di slocation has been reduced. Right humeral fracture is again noted. There are healing left anterior ri b fractures. Mild central pulmonary vascular congestion without overt edema. IMPRESSION: 1. Small patchy right basilar airspace opacity. This may represent atelectasis or a pneumonia. 2. Mild central pulmonary vascular congestion without overt edema. 3. Interval reduction of the left anterior shoulder dislocation. 4. Right humeral fracture again noted. ACT 112: Negative or not required by law. Electronically signed by: Moreno Han M.D. 05/25/2021 8:45 PM
[2021-05-25] MEDS ORDERED: ACETAMINOPHEN 1000 MG/100 ML IV IV STA (23:28)
[2021-05-26] MEDS: AMPICILLIN/SULBACTAM SOD 1,500 MG in 0.9 % SODIUM CHLORIDE 100 ML IV SCH (00:19)
[2021-05-26] MEDS: MoRPHine SULFATE 2 MG/ML CARP IV PRN (01:01)
[2021-05-26 01:18] LABS: Partial Thromboplastin Ratio 3.1
[2021-05-26 01:22] LABS: Partial Thromboplastin Time 82.8 Seconds (21.0-31.0)
[2021-05-26] MEDS ORDERED: ONDANSETRON 4 MG OD TAB SL PRN (04:37)
[2021-05-26] MEDS ORDERED: GLYCOPYRROLATE 0.2 MG/ML VIAL IV PRN (04:37)
[2021-05-26] MEDS ORDERED: LORazepam 2 MG/4 ML VIAL IV PRN (04:37)
[2021-05-26] MEDS ORDERED: ONDANSETRON INJ 2 MG/ML 2 ML VIAL IV PRN (04:37)
[2021-05-26] MEDS ORDERED: STAT IV Infusion **Titration per Protocol STA (04:37)
[2021-05-26] MEDS ORDERED: LORazepam 0.5 MG TAB PO PRN (04:37)
--- NOTE | 2021-05-26 04:37 | Communication Note ---
Date of Service: May 26, 2021 Met with patient's daughter Cele in regards to Sharla care moving forward. At this time she feels that the morphine pushes alone are inadequate in regards to control of his breathing and and discomfort. She would like to transition Richy to full comfort care measures including a morphine gtt for management of his symptoms. She would like to discontinue all other interventions including labs, the heparin gtt, etc. -Will place comfort care orders per order set -D/C all non-comfort measures Resident Activity Tracking Resident Involvement: Resident Care Provided and Biological Sciences Instructor Coverage Note Care Provided: Adult Hospital Medicine
[2021-05-26] MEDS ORDERED: MoRPHine SULF/NSS 250 MG/250 ML BTL IV SCH (04:45)
[2021-05-26] MEDS ORDERED: MoRPHine SULF/NSS 1 MG/ML 250 ML BTL IV ONE (04:46)
[2021-05-26] MEDS: NITROGLYCERIN 2% OINTMENT 30GM TUBE EXT SCH ×3 (06:07→18:37)
[2021-05-26] MEDS: LORazepam 0.5 MG/1 ML VIAL IV PRN ×2 (06:39→15:53)
[2021-05-26] MEDS: NICOTINE 14 MG/24 HR PATCH TD SCH (08:29)
--- NOTE | 2021-05-26 11:11 | Palliative Care Progress Note ---
Date of Service May 26, 2021 Assessment & Plan (1) Pain: Plan: with right humeral fracture. Continue morphine infusion. Monitor for signs of discomfort with movement and routine care. (2) Palliative care encounter: Plan: Spoke with his daughter at bedside. She is relieved that he is more comfortable. She understands that he is approaching his dying time and has been considering arrangements. She asked about whether oxygen was helping him. We discussed use of oxygen for relief of air hunger which would be relieved by morphine. O2 removed per daughter's request. He appears within a day or two of his dying time. (3) Right humeral fracture: (4) Dementia: (5) COPD (chronic obstructive pulmonary disease): Admission and Anticipated Discharge Date Admission Date: May 18, 2021 Subjective Started on morphine infusion overnight. Daughter and granddaughter at bedside. Both she and RN were concerned that prn morphine was not maintaining his comfort. Infusion currently running at 2.5mg/hr. He does not respond to voice or touch. Review of Systems Review of Systems: Unobtainable due to reduced consciousness [place] Symptom Assessment Scale Pain by observation 0/3 Dyspnea by observation 0/3 Palliative Performance Score 10% Physical Exam Constitutional: + ill appearing; no acute distress ENMT: Mouth: + dry oral mucous membranes Respiratory: + uses accessory muscles no audible rhonchi Cardiovascular: left LE edema Musculoskeletal: Extremities: + muscle atrophy Skin: mottling noted Neurologic: + obtunded Results & Data ([facility]) Vital Signs (Past 12 Hours) Vital Signs Pulse Pulse Resp BP BP Pulse Ox 05/26/21 04:00 102 H 27 H 135/60 98 05/26/21 03:00 107 H 16 113/68 97 05/26/21 02:00 107 H 44 H 103/71 93 05/26/21 01:00 103 H 38 H 104/76 94 05/26/21 00:00 106 H 22 109/77 95 05/25/21 23:30 100 H 33 H 111/64 94 05/25/21 23:19 114 H 134/79 PG Care Time/CCT Total # of Minutes Spent Total Time Spent with Patient: Total time spent is greater than 50% in coordination of care (as documented) at patient's floor/unit and/or counseling patient: Coding Level of Care Code 26019 Subseq Hosp Care Lvl 2 Diagnoses Pain R52 Palliative care encounter Z51.5 Right humeral fracture S42.301A Dementia F03.90 COPD (chronic obstructive pulmonary disease) J44.9
--- NOTE | 2021-05-26 18:04 | Hospitalist Progress Note ---
Date of Service May 26, 2021 Assessment & Plan (1) Weakness: Plan: Patient is a 75 year old male with PMHx COPD, Multiple Falls, Dementia, Anxiety, PTSD, who presents from [facility] for a fall on his L side in addition to being on the ground for 30 minutes before being found. STEMI -Likely anterior myocardial infarction based on EKG -Troponin of 9.1 -Consulted cardiology: Recommended medical management at this time, but this was discontinued -Placed on comfort measures only, palliative placed their recommendations as well including removing oxygen -Discontinue beta-binh, Oxygen, heparin drip, -Morphine pushes transition to morphine drip with Ativan, continue nitro paste Respiratory Distress -Unsure of origin, was stable on room air this morning with sudden onset of re spiratory distress without known insult. -CTA performed ruled out PE in main pulmonary vasculature -Originally thought to be due to frequent and aggressive hiccups -Hiccups were treated with Protonix, Reglan, and Thorazine -Unsure if if actually hiccups or odd, struggling respiration -Oxygen discontinued Multiple Falls -Patient with multiple falls in the past 1 year, worsening per daughter -Likely require 24 hour care at this time which he currently does not have at [facility] -On arrival with L shoulder dislocation, no s/p reduction in the ED -CT thoracic and lumbar spine without acute fracture of the thoracic spine -CT Head negative for acute fracture or bleed Right Humerus Fracture -Right shoulder x-ray revealed acute oblique humerus fracture at the proximal one third. -Etiology unknown. Could be due to unwitnessed fall, assisted mobility, etc. -Receiving morphine drip for comfort measures -Ortho consulted, appreciate consult. Patient placed in splint by Ortho. Dementia, PTSD -Has been worsening over the past 1 year per daughter -Continue home Benztropine, Effexor, and Fluphenazine R foot Erythema -Keflex discontinued -Uric acid within normal limits. 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 DVT: None Code: DNR/DNI (2) Falls: (3) Dementia: (4) Esophagitis: (5) Right humeral fracture: Admission and Anticipated Discharge Date Admission Date: May 18, 2021 Supervising Physician Co-Signing Physician Notes I personally examined the patient and verified all thompson points of history and exam, discussed case, and agree with decision making with Dr Saenz. I agree with impression and plan as noted in his documentation I saw the patient around 8 AM; he was sleeping, shallow respirations, on morphine drip. Patient's daughter was at bedside. Exam VS as noted CV tachycardic Lungs are difficult to auscultate due to condition STEMI Suspect aspiration Progressive dementia with multiple fallsappears to require higher level of care Right humeral fracture, displaced, closed Dementia The patient has been transitioned to comfort care. All medications except for comfort medications have been discontinued. We will titrate morphine drip for comfort Ativan as needed Other palliative medications as needed Subjective No meaningful HPI review of systems can be obtained due to mental status. Patient's daughter in law is present in the room during my visit. Review of Systems Review of Systems: Unobtainable due to cognitive status Physical Exam Constitutional: well developed, well nourished and + ill appearing; no acute distress Neck: normal visual inspection and trachea midline Respiratory: + labored breathing, + retractions and + uses accessory muscles Psychiatric: Orientation: + not alert Resident Activity Tracking Resident Involvement: Resident Care Provided Care Provided: Adult Hospital Medicine (1) Dementia Dementia type: unspecified type
[2021-05-27] MEDS: NITROGLYCERIN 2% OINTMENT 30GM TUBE EXT SCH (00:10)
--- NOTE | 2021-05-27 01:19 | Death Pronouncement Note ---
Date of Service May 27, 2021 Pronouncement Note Admission Date Admission Date: May 18, 2021 Date and Time of Date of : 05/27/21 Time of : 01:15 Contributing Factors (1) Weakness: (2) Falls: (3) Dementia: (4) Esophagitis: (5) Right humeral fracture: Hospital Course Hospital Course: see note Summary Additional details: Notified by nursing patient had ceased to breath. Patient without respirations, pulse, heart sounds, pupils fixed and dilated. Pronounced at 01:15 05/27/21. Additional Data Confirmation of : no pulse, no respirations, no heart sounds and pupils fixed and dilated Attending physician: Jorge A Brennan, DO Was code activated?: No Autopsy requested?: No life claims examiner notified?: No Organ bank notified?: No Advance directives: No Resident Activity Tracking Resident Involvement: Resident Care Provided and [employer] Coverage Note Care Provided: Adult Hospital Medicine
--- NOTE | 2021-05-28 12:40 | Discharge Summary ---
Date of Service May 28, 2021 Admission HPI Per Admitting Provider Patient is a 75 year old male with PMHx COPD, Multiple Falls, Dementia, Anxiety, PTSD, who presents from [facility] for a fall on his L side in addition to being on the ground for 30 minutes before being found. Patient's dementia is fairly profound and his ability to answer questions at this time is limited. History is gathered from previous notation and discussion with his daughter. His daughter notes that the patient has had significant increase in his falls in the past 1 year and that it has gotten to the point where she and the family feel that he requires 24/7 care and that hospice may be more appropriate for him. Patient was noted to have a recent fall previous to this visit where he had fractured his R humeral head which is still in the process of healing. At his fall today, he had an anterior left shoulder dislocation with associated Hill- Sachs impaction injury which was reduced in the ED to good effect. ROS unobtainable from patient at this time. Also of note, patient has had swelling of his R foot MTP with erythema, felt to be cellulitis and is on treatment day 10/03 of Keflex. Patient at this time will be admitted for monitoring, discussion with palliative care, and likely discharge on hospice. Principal Diagnosis STEMI Discharge Exam Patient was declared so a physical exam could not be performed by myself. Discharge Data Allergies Allergy/AdvReac Type Severity Reaction Status Date / Time No Known Allergies Allergy Verified 05/17/21 15:58 Consultations 05/17/21 18:31 ED Decision to Admit Stat 05/17/21 21:28 Consult Palliative Care Routine 05/25/21 17:14 Consult Cardiology Stat 05/26/21 04:37 Consult Palliative Care Routine Ordered Studies 05/17/21 13:15 CT abd pelvis IV con only Stat CT cervical spine wo con Stat CT chest diagnostic w con Stat CT head/brain wo con Stat CT lumbar spine w con Stat CT thoracic spine w con Stat 05/25/21 10:13 CT angio chest PE protocol Stat Hospital Course (1) Weakness: Patient is a 75 year old male with PMHx COPD, Multiple Falls, Dementia, Anxiety, PTSD, who presents from [facility] for a fall on his L side in addition to being on the ground for 30 minutes before being found. STEMI -Likely anterior myocardial infarction based on EKG -Troponin of 9.1 -Consulted cardiology: Recommended medical management at this time, but this was discontinued -Placed on comfort measures only, palliative placed their recommendations as well including removing oxygen -Discontinue beta-binh, Oxygen, heparin drip, -Morphine pushes transition to morphine drip with Ativan, continue nitro paste -Patient passed on May 27, 2021 at 1:15 in the morning Respiratory Distress -Unsure of origin, was stable on room air this morning with sudden onset of res piratory distress without known insult. -CTA performed ruled out PE in main pulmonary vasculature -Thought to be due to frequent and aggressive hiccups -Hiccups were treated with Protonix, Reglan, and Thorazine -Oxygen discontinued while on comfort care (see palliative consult) Multiple Falls -Patient with multiple falls in the past 1 year, worsening per daughter -Likely require 24 hour care at this time which he currently does not have at [facility] -On arrival with L shoulder dislocation, no s/p reduction in the ED -Patient had spontaneous subluxation and reduction while hospitalized (recognized in successive chest films) -CT thoracic and lumbar spine without acute fracture of the thoracic spine -CT Head negative for acute fracture or bleed Right Humerus Fracture -Right shoulder x-ray revealed acute oblique humerus fracture at the proximal one third. -Etiology unknown. Could be due to unwitnessed fall, assisted mobility, etc. -Receiving morphine drip for comfort measures -Ortho consulted, appreciate consult. Patient placed in splint by Ortho. Dementia, PTSD -Has been worsening over the past 1 year per daughter -Continue home Benztropine, Effexor, and Fluphenazine R foot Erythema -Keflex discontinued -Uric acid within normal limits. 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 DVT: None Code: DNR/DNI (2) Falls: (3) Dementia: (4) Esophagitis: (5) Right humeral fracture: Total Time Total Time Spent Total Time Spent (In Minutes): 30 Discharge Plan Discharge Items Patient Disposition: Discharge Diagnosis: Other Date/Time: 05/27/21 01:15 Supervising Physician Co-Signing Physician Notes I agree with impression and plan as noted above. Please see my complete attestation in the progress note of the day previous to his . Patient was pending placement with discussion for hospice services to be explored after his placement. He had advancing dementia with multiple falls and multiple ED visits and hospitalizations over the last six months. His FAST score less than 7A, although he had a marked decline during his hospitalization, and appropriate for hospice based on above and progression. He was transitioned to comfort care while in the hospital after discussion with his daughter. On the day prior to his passing, he developed aggressive hiccups - and was unable to take a deep breath. Along with this, he had a new oxygen requirement. Initial concerns were that of aspiration or PE; a CT scan demonstrated thickening of the right main stem, possibly secondary to aspiration or infection, but negative for PE. The hiccups were intermittent, with periods of normal respirations and sleeping. The patient would open his eyes to my voice and follow simple commands, but no meaningful communication. Pulse oxygen levels at or greater than 94% with 4 lpm. Despite cessation of hiccups at times, he became more tachycardic, and a subsequent EKG to determine rhythm demonstrated ST elevation anteriorly, and a subsequent troponin was elevated. Discussed with cardiology - not felt to be a candidate for intervention. Pursued medical management including anticoagulation, NTG, morphine, and beta blockade. Antibiotics added for suspect aspiration. Discussed with daughter and she was in agreement with approach. Later that evening, daughter elected for comfort care, and medical interventions were discontinued and palliative measures continued. STEMI Suspect aspiration Progressive dementia with multiple falls Right humeral fracture, displaced, closed Dementia, end-stage
--- NOTE | 2021-06-04 10:06 | Coding Query ---
To promote full compliance with coding requirements relating to patient care, physician participation is requested in all cases of field contractor uncertainty. Please assist us with the question(s) below: Coding Question(s): It was noted on Progress Note 05/23 that the patient has/is suspected to have osteoporosis. According to coding guidelines "a code for osteoporotic fracture, and not a traumatic fracture, should be used for any patient with known osteoporosis who suffers a fracture, even if the patient had a minor fall or trauma, if that fall or trauma would not usually break a normal, healthy bone." Please indicate below the type of fracture: Physician's Response(s): ( ) Osteoporotic fracture of Right Shoulder/Humerus ( x ) Traumatic fracture of Right Shoulder/Humerus ( ) Other, please specify ( ) Unable to be determined MTDD
== END 2021-05-27 03:30 | disposition expired | DRG 884 ==
LOC: 3N 12:32 → ED 12:32 → SUATTDRO 19:43 → 3N 20:41 → SUATTDRO 05-18 17:20 → 2N 05-25 12:29 → 1E 05-25 19:37 → 3E 05-26 11:48